=== PATIENT | female | born 1955 | race Caucasian/White ===

== ENCOUNTER 2017-02-12 04:20 | Inpatient (IN) | payer OTHER ==
[~2017-02-12] VITALS: Ht 167.6 cm; Wt 60.1 kg
[~2017-02-12 04:20] MED LIST: CLX20 PO; DPKEC250 PO; DPKEC500 PO; MULT-506 PO; TOPI25TA99 PO; [UNRECOGNIZED DRUG - OTHER] PO
[2017-02-12] MEDS ORDERED: CLX40 PO (04:47)
[2017-02-12] MEDS ORDERED: CARB25TA16 PO (04:47)
[2017-02-12] MEDS ORDERED: CARB25TA12 PO (04:47)
[2017-02-12] MEDS ORDERED: ENTA200T PO (04:53)
[2017-02-12 05:01] LABS: HEMATOCRIT 42.8 % (37-47); MEAN CELL VOLUME 95.3 fL (80-100); MEAN CORPUSCULAR HEMOGLOBIN 30.5 pg (25-34); PLATELET COUNT 279 K/uL (130-400); RED BLOOD COUNT 4.49 M/uL (4.2-5.4); WHITE BLOOD COUNT 12.96 K/uL (4.8-10.8)
[2017-02-12 05:18] LABS: BLOOD UREA NITROGEN 17 mg/dl (7-18); BUN/CREATININE RATIO 18.9 (10-20); CALCIUM 9.4 mg/dl (8.5-10.1); CARBON DIOXIDE 29 mmol/L (21-32); CHLORIDE 108 mmol/L (98-107); CREATININE 0.92 mg/dl (0.60-1.20); GLUCOSE 128 mg/dl (70-99); POTASSIUM 4.1 mmol/L (3.5-5.1); SODIUM 142 mmol/L (136-145)
[2017-02-12 05:30] LABS: CKMB/CK RATIO 0.7 (0-3.0); THYROID STIMULATING HORMONE 0.955 uIu/ml (0.300-4.500)
[2017-02-12 05:31] LABS: BASO % 0.2 %; BASO ABS # 0.02 K/uL (0-0.2); COMPLETE YES; EOS % 0.5 %; IG% 0.2 %; LYMPH % 17.3 %; LYMPH ABS # 2.24 K/uL (1.2-3.4); MONO % 6.8 %
[2017-02-12 05:32] LABS: MAGNESIUM 2.4 mg/dl (1.8-2.4)
[2017-02-12] MEDS ORDERED: LIDO/EPINEPHRINE/SOD BICARB 20 ML VIAL INFIL ONE (06:01)
--- NOTE | 2017-02-12 06:06 | EMERGENCY ROOM VISIT NOTE ---
History Report prepared by Rich: Dana Shankar Under the Supervision of: Dr. Bibiana Menezes D.O. First contact with patient: 04:24 Chief Complaint: FALL Stated Complaint: FALL History of Present Illness The patient is a 61 year old female who presents to the Emergency Room with complaints of an episode of a fall occurring just prior to arrival. The patient' s states that he just picked her up three days ago from [facility] after she spent a wek there. He states that she falls often because she doesn't like to use her walker or cane. He states that she tends to lose her balance when she falls. He states that tonight she got up to go to the bathroom when she fell. He reports that he heard her fall and she was unresponsive for five minutes. The patient states she doesn't remember falling. The patient complains of a headache and pain in her head. The patient denies any abdominal pain, neck pain, back pain, or any other pain. The notices that she has been eating and drinking normally. Source of History: patient Onset: prior to arrival Position: other Quality: other (global) Timing: other (episode) Associated Symptoms: + LOC, + headache, No neck pain, No abdominal pain, No back pain Note: The patient complains of pain in her head. Review of Systems See HPI for pertinent positives & negatives. A total of 10 systems reviewed and were otherwise negative. Past Medical & Surgical Medical Problems: (1) Appendectomy (2) Bipolar disorder (3) Cholecystectomy (4) Concussion (5) Migraine (6) Uterine Ablation Family History No pertinent family history Social History Smoking Status: Never Smoker Drug Use: none Marital Status: Housing Status: lives with family Current/Historical Medications Scheduled Carbidopa/Levodopa (Sinemet 25MG/100MG), 1 TAB PO 5XD Carbidopa/Levodopa (Sinemet Cr 25MG/100MG), 1 TAB PO HS Citalopram (Citalopram Hydrobromide), 40 MG PO DAILY Entacapone (Comtan), 200 MG PO 5XD Allergies Coded Allergies: Sulfa Antibiotics (Verified Allergy, Severe, HIVES, 02/12/17) Penicillins (Verified Allergy, Unknown, RASH, 02/12/17) Physical Exam Vital Signs Date Time Temp Pulse Resp B/P (MAP) Pulse Ox O2 Delivery O2 Flow Rate FiO2 02/12/17 06:20 104 21 94 02/12/17 06:01 135/85 02/12/17 05:50 98 25 96 02/12/17 05:31 142/78 02/12/17 05:20 99 29 97 02/12/17 05:12 98 18 144/85 96 Room Air 02/12/17 05:05 144/85 02/12/17 04:34 100 02/12/17 04:31 140/82 02/12/17 04:20 36.5 102 31 140/82 95 Room Air Physical Exam HEENT: Head - normocephalic. Old bruising to right side of face. 4.5 cm laceration to right temporal region with some bleeding. Pupils are equal, round , and reactive to light. Extraocular eye muscles are intact and sclera are anicteric. Ears - bilaterally patent canals with no evidence of hemotympanum. Nose - moist nasal mucosa without evidence of trauma or discharge. Mouth - moist buccal mucosa with no trauma to the teeth or signs of malocclusion. Extremely dry. Neck: The neck is stiff but there is no pain to palpation over the posterior cervical spine and no obvious step-offs or deformities. There is no JVD or tracheal deviation. Chest: There are no signs of deformities, contusions or abrasions to the chest wall. There is no obvious crepitus or paradoxical chest rise. Heart: Regular, rate, and rhythm. There is a normal S1 and S2 with no murmurs, clicks, or gallops appreciated. Lungs: Clear to auscultation bilaterally with no wheezes, rales, or rhonchi. Abdomen: Soft, completely nontender, nondistended, with good bowel sounds. There is no sign of trauma such as contusions, abrasions or penetrations. There are no palpable pulsatile masses or hepatosplenomegaly. There is no guarding, rigidity, or rebound noted. Pelvis: Stable to rock and compression. Extremities: No obvious deformities or edema. There are easily palpable peripheral pulses. Left hand and wrist have significant amount of old contusions. Multiple contusions at different stages of healing over arms and legs. Neuro: The patient is awake and alert and easily able to follow commands. Muscle strength is 5 out of 5 in all 4 extremities. Otherwise, neuro exam is unremarkable. Back: The entire thoracic, lumbar, and sacral spine were palpated. There are no obvious step-offs or deformities noted. Abrasion over left shoulder. Medical Decision & Procedures ER Provider Diagnostic Interpretation: CT C SPINE: No acute fracture. Reversal of normal cervical lordosis centered at C4-5 and moderate right convex curvature. 2-3 millimeters degenerative anterolisthesis C3-4 and C4-5. Multilevel degenerative disc disease, facet and uncovertebral arthropathy. No significant boy spinal cnal stenosis. Varying degrees of mild to moderate bilateral foraminal stenosis, worst on the right at C6-7. Radiologist: Aquilino Sellers MD Study ready at 05:09 and initial results transmitted at 05:58. CT HEAD: Comparison: CT of 06/29/08. Impression: No ICH, mass effect or edema. No skull fracture. Right temporal scalp laceration with soft tissue swelling and gas. No radiopaque foreign body. Mild parenchymal atrophy and chronic microangiopathic change in the periventricular white matter. Radiologist: Aquilino Sellers MD Study ready at 05:10 and initial results transmitted at 05:54. Laboratory Results 02/12/17 04:12 Red Blood Count 4.49, Mean Corpuscular Volume 95.3, Mean Corpuscular Hemoglobin 30.5, Mean Corpuscular Hemoglobin Concent 32.0, Mean Platelet Volume 10.0, Neutrophils (%) (Auto) 75.0, Lymphocytes (%) (Auto) 17.3, Monocytes (%) (Auto) 6.8, Eosinophils (%) (Auto) 0.5, Basophils (%) (Auto) 0.2, Neutrophils # (Auto) 9.73, Lymphocytes # (Auto) 2.24, Monocytes # (Auto) 0.88, Eosinophils # (Auto) 0.07, Basophils # (Auto) 0.02 02/12/17 04:12 Test 02/12/17 04:12 02/12/17 05:45 White Blood Count 12.96 K/uL (4.8-10.8) Red Blood Count 4.49 M/uL (4.2-5.4) Hemoglobin 13.7 g/dL (12.0-16.0) Hematocrit 42.8 % (37-47) Mean Corpuscular Volume 95.3 fL (80-100) Mean Corpuscular Hemoglobin 30.5 pg (25-34) Mean Corpuscular Hemoglobin Concent 32.0 g/dl (32-36) Platelet Count 279 K/uL (130-400) Mean Platelet Volume 10.0 fL (7.4-10.4) Neutrophils (%) (Auto) 75.0 % Lymphocytes (%) (Auto) 17.3 % Monocytes (%) (Auto) 6.8 % Eosinophils (%) (Auto) 0.5 % Basophils (%) (Auto) 0.2 % Neutrophils # (Auto) 9.73 K/uL (1.4-6.5) Lymphocytes # (Auto) 2.24 K/uL (1.2-3.4) Monocytes # (Auto) 0.88 K/uL (0.11-0.59) Eosinophils # (Auto) 0.07 K/uL (0-0.5) Basophils # (Auto) 0.02 K/uL (0-0.2) RDW Standard Deviation 48.4 fL (36.4-46.3) RDW Coefficient of Variation 14.0 % (11.5-14.5) Immature Granulocyte % (Auto) 0.2 % Immature Granulocyte # (Auto) 0.02 K/uL (0.00-0.02) Red Blood Cell Morphology Unremarkable Anion Gap 5.0 mmol/L (3-11) Est Creatinine Clear Calc Drug Dose 58.6 ml/min Estimated GFR () 76.8 Estimated GFR (Non- 66.3 BUN/Creatinine Ratio 18.9 (10-20) Calcium Level 9.4 mg/dl (8.5-10.1) Magnesium Level 2.4 mg/dl (1.8-2.4) Total Creatine Kinase 119 U/L (26-192) Creatine Kinase MB 0.8 ng/ml (0.5-3.6) Creatine Kinase MB Ratio 0.7 (0-3.0) Troponin I < 0.015 ng/ml (0-0.045) Thyroid Stimulating Hormone (TSH) 0.955 uIu/ml (0.300-4.500) Urine Color DK YELLOW Urine Appearance TURBID (CLEAR) Urine pH 7.5 (4.5-7.5) Urine Specific Nickerson 1.023 (1.000-1.030) Urine Protein TRACE (NEG) Urine Glucose (UA) NEG (NEG) Urine Ketones TRACE (NEG) Urine Occult Blood NEG (NEG) Urine Nitrite POS (NEG) Urine Bilirubin NEG (NEG) Urine Urobilinogen NEG (NEG) Urine Leukocyte Esterase MODERATE (NEG) Urine WBC (Auto) 10-30 /hpf (0-5) Urine RBC (Auto) 0-4 /hpf (0-4) Urine Hyaline Casts (Auto) 5-10 /lpf (0-5) Urine Epithelial Cells (Auto) 0-5 /lpf (0-5) Urine Bacteria (Auto) 4+ (NEG) Laboratory results per my review. Procedure See procedure note for Mine Valentin PA-C. ECG Indication: other (fall) Rate (beats per minute): 96 Rhythm: normal sinus Findings: no acute ischemic change, no ectopy ED Course 0425: Past medical records reviewed. The patient was evaluated in room B4B. A complete history and physical exam was performed. The patient's , who is a physician, was at the bedside. He was able to provide much of a history. Laboratory studies were drawn as above. She had a twelve-lead EKG and went for CT scan of the brain and cervical spine as described above. 0501: I discussed the patient's test results with her and the treatment plan. The wound on the right side of her head was cleansed and required suture repair. This was repaired by Mine Valentin PA-C. Please see her procedure note. I've been some time talking to the about the increased falls for the patient and the dangers associated with that. He agreed that she would most likely require more intensive in-home care or placement in an assisted facility. 0518: Discussed the patient's case with Dr. Aldridge. The patient will be evaluated for further management. Medical Decision This is a 61-year-old female patient with a history of frontotemporal dementia who presents to the emergency department tonight after she fell in the bathroom and was found unresponsive for approximate 5 minutes. Differential diagnoses include skull fracture, intracranial trauma, c-spine fracture, UTI, dehydration. LABS: White blood cell count 12.9 Stable H&H Normal renal function TSH 0.9 Glucose 128 Normal magnesium Negative cardiac enzymes URINALYSIS: Dark yellow Trace proteins Trace ketones Positive nitrite Moderate leukocyte esterase 4+ bacteria 10-30 white blood cells The patient has been suffering increased falls as is evidenced by the multiple contusions about her body. Urinalysis reveals a urinary tract infection. This may be exacerbated things. I discussed the case the [facility] Hospitalist and they will evaluate for further management. CT scan of the brain and cervical spine was negative. The wound on her scalp was repaired. She denied being in pain. Consults Time Called: 05 Consulting Physician: Dr. Aldridge Returned Call: 0518 Discussed the patient's case with Dr. Aldridge. The patient will be evaluated for further management. Impression Primary Impression: Scalp laceration Additional Impressions: Fall UTI (urinary tract infection) Scribe Attestation The scribe's documentation has been prepared under my direction and personally reviewed by me in its entirety. I confirm that the note above accurately reflects all work, treatment, procedures, and medical decision making performed by me. Departure Information Dispostion Being Evaluated By Hospitalist Referrals Amanda Cisneros M.D. (PCP) Patient Instructions My [facility] Problem Qualifiers Primary Impression: Scalp laceration Encounter type: initial encounter Qualified Codes: S01.01XA - Laceration without foreign body of scalp, initial encounter Additional Impressions: Fall Encounter type: initial encounter Qualified Codes: W19.XXXA - Unspecified fall, initial encounter UTI (urinary tract infection) Urinary tract infection type: acute cystitis Hematuria presence: with hematuria Qualified Codes: N30.01 - Acute cystitis with hematuria
[2017-02-12 06:16] LABS: URINE APPEARANCE TURBID (CLEAR); URINE BILIRUBIN NEG (NEG); URINE COLOR DK YELLOW; URINE EPITHELIAL CELL AUTO 0-5 /lpf (0-5); URINE NITRITE POS (NEG); URINE PH 7.5 (4.5-7.5); URINE SPECIFIC GRAVITY 1.023 (1.000-1.030); UROBILINOGEN NEG (NEG)
--- NOTE | 2017-02-12 06:21 | EMERGENCY ROOM VISIT NOTE ---
ED Visit Note I was asked by Dr. Menezes to perform laceration repair of this patient's scalp laceration. Please see her dictation for further physical exam and full ED course. Physical exam reveals a 4.5 cm laceration to the right hairline. Verbal consent was obtained to perform the procedure. Using sterile technique the wound was cleaned with Betadine. The area was sterilely draped. 4 ml of 1 % buffered lidocaine with epinephrine was used to anesthetize the scalp laceration. Once the patient was anesthetized, the wound was copiously irrigated under pressure with sterile saline. The wound was explored and there were no deep structures injured such as tendons, bone, or significant blood vessels. The laceration was repaired using 5 simple interrupted 4-0 nylon sutures with the wound edges being well approximated. The patient tolerated the procedure well. Hemostasis was achieved.
[2017-02-12 06:27] LABS: MANUAL MICROSCOPIC REQUIRED? NO; REVIEW REQ? NO
[2017-02-12 06:28] LABS: SULFASALICYLIC ACID POS (NEG)
[2017-02-12] MEDS ORDERED: ACETAMINOPHEN 325 MG TAB PO PRN (06:30)
[2017-02-12] MEDS ORDERED: MoRPHine SULFATE 4 MG/ML 1 ML CARP\\VIAL IV PRN (06:30)
[2017-02-12] MEDS ORDERED: ONDANSETRON INJ 2 MG/ML 2 ML VIAL IV PRN (06:30)
[2017-02-12] MEDS ORDERED: OXYCODONE/ACETAMINOPHEN 5-325 TAB PO PRN (06:30)
[2017-02-12] MEDS ORDERED: SODIUM CHLORIDE 0.45% 1000ML 1,000 ML IV ONE (06:30)
[2017-02-12] MEDS ORDERED: IBUPROFEN 200 MG TAB PO PRN (06:30)
[2017-02-12] MEDS ORDERED: KETOROLAC TROMETHAMINE 30 MG/ML VIAL IV PRN (06:30)
--- NOTE | 2017-02-12 06:41 | DIAGNOSTIC IMAGING REPORT ---
CT HEAD WITHOUT CONTRAST (CT) CLINICAL HISTORY: Head trauma. Head pain. COMPARISON STUDY: 06/29/2008 TECHNIQUE: Axial CT of the brain is performed from the vertex to the skull base. IV contrast was not administered for this examination. A dose lowering technique was utilized adhering to the principles of ALARA. CT DOSE: 1034.83 mGy.cm FINDINGS: No intra or extra-axial mass lesions are visualized. There is no CT evidence of acute cortical infarction. There is no evidence of midline shift. There is no acute hemorrhage. No calvarial fractures are visualized. There are minor white matter hypodensities likely on a small vessel basis. There is mild ventricular dilatation which is progressive when compared the preceding study. There is no evidence of acute sinusitis. There is a right frontal scalp laceration with associated edema. IMPRESSION: 1. No acute intracranial findings 2. Right frontal scalp laceration with associated soft tissue swelling 3. Mild ventricular dilatation Electronically signed by: Paul Rodriguez M.D. 02/12/2017 6:40 AM Dictated Date/Time: 02/12/2017 6:37 AM
[2017-02-12] MEDS ORDERED: IV FLUIDS COMPLETED PRN (06:45)
[2017-02-12 07:03] VITALS: O2SAT 97; Ht 167.6 cm; Wt 60.1 kg
--- NOTE | 2017-02-12 07:20 | DIAGNOSTIC IMAGING REPORT ---
CT SCAN OF THE CERVICAL SPINE CLINICAL HISTORY: Fall. COMPARISON STUDY: No priors. TECHNIQUE: CT scan of the cervical spine is performed from the skull base to the upper thoracic spine. Images are reviewed in the axial, sagittal, and coronal planes. IV contrast was not administered for this examination. A dose lowering technique was utilized adhering to the principles of ALARA. FINDINGS: Skeletal structures: The skeletal structures are osteopenic. There is no evidence of fracture or subluxation involving the cervical spine. Vertebral body height is maintained. There is 5 mm of anterolisthesis at C3-C4. Minimal anterolisthesis is also seen at C4-C5. There is minimal retrolisthesis at C6-C7. There is straightening of cervical lordosis with reversal centered at C4-C5. The odontoid process and lateral masses are intact. The atlantoaxial articulation is preserved noting productive degenerative change. The spinous processes appear intact. Anterior osteophytes are seen from C4 through C7. Endplate sclerosis is noted at C6-C7. There is moderate multilevel cervical spondylosis. Uncovertebral and facet arthropathy contribute to neural foraminal narrowing at several levels. Intervertebral discs: There is moderate disc space narrowing seen at C5-C6 and C6-C7. Mild disc space narrowing seen at C3-C4 and C4-C5. Central canal: Posterior disc osteophyte complexes at C5-C6 and C6-C7 likely contribute to mild acquired compromise of the central canal. Soft tissues: The prevertebral and paraspinous soft tissues are within normal limits. Calvarium: The visualized calvarium at the skull base appears intact. Brain parenchyma: Partially visualized brain parenchyma the skull base is within normal limits noting involutional change. Sinuses and mastoids: The visualized paranasal sinuses are clear. The mastoid air cells are well pneumatized. Lung apices: Apical scarring is noted. Partially imaged upper lobe lung parenchyma is otherwise clear as visualized. IMPRESSION: 1. There is no evidence of fracture or subluxation involving the cervical spine. 2. Osteopenia and spondylotic change as above. Electronically signed by: Luis Eduardo Murphy M.D. 02/12/2017 7:19 AM Dictated Date/Time: 02/12/2017 7:15 AM
[2017-02-12 07:30] VITALS: BP 143/80; PULSE 94; TEMP 36.5; O2SAT 96
--- NOTE | 2017-02-12 08:16 | HISTORY & PHYSICAL EXAMINATION ---
DATE OF ADMISSION: 02/12/2017 PRIMARY CARE DOCTOR: Dr. Cisneros CHIEF COMPLAINT: Fall, head trauma. HISTORY OF PRESENT ILLNESS: History was obtained from the patient, records and patient's . Medical history is significant for arthritis, mood disorder, left renal angioma sp, frontotemporal dementia with Parkinsonian features. As per , of late the patient is falling more than usual/ [facility] rehabilitation stay last November 2016. Hours ago, the patient had a fall in the kitchen, hit her head against the tile floor. Px was unresponsive for a few minute. Patient sustained a laceration on the right congregation. Patient denies chest pain or shortness of breath. Scalp laceration sutured in the Emergency Room. Patient also noted to be incontinent of large amount of urine upon arrival at the Emergency Room. No fever, no chills. MEDICAL HISTORY: As above. OPERATIONS: She has had cholecystectomy, gynecologic procedures, urologic procedures, appendectomy. HOME MEDICATIONS: Include; Sinemet, citalopram and Comtan. ALLERGIES: TO PENICILLIN AND SULFA. FAMILY HISTORY: Dementia. PERSONAL AND SOCIAL HISTORY: Nonsmoker. No chronic intake of alcoholic beverages. Homemaker. REVIEW OF SYSTEMS: As per HPI. All other ROS negative. PHYSICAL EXAMINATION: VITAL SIGNS: Blood pressure was noted to be 144/85, pulse rate 98, RR 18, temperature 36.5 and sats 95 on room air. GENERAL: Noted to be comfortable, no respiratory distress, flat affect. SKIN: Normal color, note of multiple bruising on all four extremities HEENT: Sutured laceration right congregation. [employer] palpebral conjunctivae. Dry mucosa. NECK: No JVD. Supple. CHEST: Clear to auscultation. HEART: Regular rate and rhythm. ABDOMEN: Soft. EXTREMITIES: No edema, no tenderness. NEUROLOGIC: No gross focality except for some rest tremors. Gait and stance not assessed LABORATORIES: Hemoglobin was noted to be 13.7, hematocrit 42.0 white cell count 12.9 and platelets 279. Sodium 140, potassium 4.1, chloride 108, CO2 of 29, BUN 70, creatinine 0.9 and glucose of 128. CT head initial read; no acute hemorrhage, right frontal scalp laceration and associated soft tissue swelling. CT spine neck initial read; showed reversal of normal cervical lordosis 2.2-3 mm, degenerative disease at C3-C4, C4-C5, [id number] foraminal stenosis worse on the right at C6-C7. UA : WBC est, nitrite positive ASSESSMENT: 1. Cerebral concussion 2. Recurrent falls Worsening ambulatory dysfunction hx frontotemporal dementia with parkinsonian features 3. urinary tract infection, no sepsis. PLAN: Observation [facility], neuro checks Neurology consult RE : Cerebral concussion. Follow urine cultures. IV ceftriaxone. PT/OT evaluation. Social service. RE DISCHARGE PLANNING DVT prophylaxis, SCDs. Recent head wound. Full code. Patient requesting updates from providers. Dr. Omi Burrell at [phone]. [facility]
[2017-02-12] MEDS: CEFTRIAXONE SOD INJ 1 GM in DEXTROSE 5% ADD-VANTAGE 50ML 50 ML IV SCH (08:33)
[2017-02-12] MEDS: CITALOPRAM 40 MG TAB PO SCH (08:34)
[2017-02-12] MEDS: ENTACAPONE 200 MG TAB PO SCH ×4 (09:46→22:05)
[2017-02-12] MEDS: CARBIDOPA/LEVODOPA 25/100MG TAB PO SCH ×4 (09:46→22:05)
--- NOTE | 2017-02-12 13:57 | Neurology Consultation ---
Neurology Consultation Date of Consultation: Feb 12, 2017. Attending Physician: Taco Angelo MD Primary Care Physician: Amanda Cisneros M.D. Reason for Consultation: concussion History of Present Illness Source: patient Tamara is a 61 year old female who PMH arthritis, mood disorder left renal angioma, dementia with Parkinsonian features. Per report of of late the patient is falling more than usual. She states this is true and has been fall when walking her dogs. She states she does not use a walker for ambulation. Yesterday she fell in the kitchen and hit her head on the tile floor and was unresponsive for several minutes. she state she had no flushing, lightheaded feeling or SOB prior to the fall. She has a laceration above her right temporal area which has been sutured. She states she did not bite her tongue or loose continence but the ER reports she had a large amount of urine at arrival. denies CP, SOB, abdominal pain, weakness, numbness tingling, headache, vision changes, N, V. She is not sure who she sees for her parkinson's disease. During the exam she has difficulty clearing her saliva. Past Medical/Surgical History Medical Problems: (1) Fall Status: Acute (2) Scalp laceration Status: Acute Social History Smoking Status: Never smoker Alcohol Use: none Drug Use: none Marital Status: Housing Status: lives with family Allergies Coded Allergies: Sulfa Antibiotics (Verified Allergy, Severe, HIVES, 02/12/17) Penicillins (Verified Allergy, Unknown, RASH, 02/12/17) Current Inpatient Medications Current Inpatient Medications Medications (Trade) Dose Ordered Sig/Paz Route Start Time Stop Time Status Last Admin Dose Admin Ceftriaxone Sodium 1 gm/ Dextrose 50 ml @ 100 mls/hr Q24H IV 02/12/17 08:00 02/17/17 07:59 02/12/17 08:33 100 MLS/HR Miscellaneous (Iv Fluids Completed) 1 ea PRN PRN N/A 02/12/17 06:45 02/12/18 06:44 Acetaminophen (Tylenol Tab) 650 mg Q4H PRN PO 02/12/17 06:30 03/14/17 06:29 Carbidopa/Levodopa (Sinemet 25/ 100MG Tab) 1 tab 0600,1000,1400,1800,2200 PO 02/12/17 10:00 03/14/17 09:59 02/12/17 09:46 1 TAB Carbidopa/Levodopa (Sinemet Cr 25/ 100MG Tab) 1 tab HS PO 02/12/17 21:00 03/14/17 20:59 Citalopram Hydrobromide (celeXA TAB) 40 mg DAILY PO 02/12/17 08:00 03/14/17 08:59 02/12/17 08:34 40 MG Entacapone (Comtan) 200 mg 0600,1000,1400,1800,2200 PO 02/12/17 10:00 03/14/17 09:59 02/12/17 09:46 200 MG Ibuprofen (Advil Tab) 400 mg Q6H PRN PO 02/12/17 06:30 03/14/17 06:29 Ketorolac Tromethamine (Toradol Inj) 30 mg Q6H PRN IV 02/12/17 06:30 02/17/17 06:29 Oxycodone/ Acetaminophen (Percocet 5-325mg Tab) 1 tab Q6H PRN PO 02/12/17 06:30 02/26/17 06:29 Ondansetron HCl (Zofran Inj) 4 mg Q6H PRN IV 02/12/17 06:30 03/14/17 06:29 Morphine Sulfate (MoRPHine SULFATE INJ) 4 mg Q3H PRN IV 02/12/17 06:30 02/26/17 06:29 Sodium Chloride 1,000 ml @ 75 mls/hr [id number] ONCE IV 02/12/17 06:30 02/12/17 19:49 02/12/17 08:33 75 MLS/HR Physical Exam Vital Signs (Past 24 Hrs): Date Time Temp Pulse Resp B/P (MAP) Pulse Ox O2 Delivery O2 Flow Rate FiO2 02/12/17 07:30 36.5 94 24 143/80 (101) 96 Room Air 02/12/17 07:03 97 Room Air 02/12/17 07:00 105 26 139/78 97 02/12/17 06:20 104 21 94 02/12/17 06:01 135/85 02/12/17 05:50 98 25 96 02/12/17 05:31 142/78 02/12/17 05:20 99 29 97 02/12/17 05:12 98 18 144/85 96 Room Air 02/12/17 05:05 144/85 02/12/17 04:34 100 02/12/17 04:31 140/82 02/12/17 04:20 36.5 102 31 140/82 95 Room Air Physical Exam: Constitutional: appearance thin ill appearing Ears, Nose, Mouth and Throat: mucous membranes moist, no injection and skin normal, eyes normal Cardiovascular: normal S-1 and S-2 and regular rate and rhythm Respiratory: harsh BS Musculoskeletal: no peripheral edema and good distal pulses Skin: no stigmata of neurocutaneous disease noted and normal and intact Eyes: extraocular muscles intact (EOMI) and pupils equal, round and reactive to light (PERRL), decreased blink frequency NEUROLOGIC EXAMINATION: Mental status: Alert and interactive Oriented 2017 and [facility] in [place] Oriented to person Speech fluent with no evidence of aphasia Cranial Nerves smile eye brow raise symmetric, tongue midline Reflexes: Deep tendon reflexes were symmetrical and graded 2/5 brisk. Plantar responses were flexor. Sensory: intact to vibration and GT proprioception Coordination: finger to nose without bi pass, +cogwheeling, + resting tremor Gait/Stance: Posture lying in bed, head of bed raised due to difficulty with clearing saliva Motor: Negative for pronator drift of out stretched arms with eyes closed. 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 hip flex plantar flex ext 4+/5, generalized weakness Laboratory Results Past 24 Hours: 02/12/17 04:12 Red Blood Count 4.49, Mean Corpuscular Volume 95.3, Mean Corpuscular Hemoglobin 30.5, Mean Corpuscular Hemoglobin Concent 32.0, Mean Platelet Volume 10.0, Neutrophils (%) (Auto) 75.0, Lymphocytes (%) (Auto) 17.3, Monocytes (%) (Auto) 6.8, Eosinophils (%) (Auto) 0.5, Basophils (%) (Auto) 0.2, Neutrophils # (Auto) 9.73, Lymphocytes # (Auto) 2.24, Monocytes # (Auto) 0.88, Eosinophils # (Auto) 0.07, Basophils # (Auto) 0.02 02/12/17 04:12 Test 02/12/17 04:12 02/12/17 05:45 White Blood Count 12.96 K/uL (4.8-10.8) Red Blood Count 4.49 M/uL (4.2-5.4) Hemoglobin 13.7 g/dL (12.0-16.0) Hematocrit 42.8 % (37-47) Mean Corpuscular Volume 95.3 fL (80-100) Mean Corpuscular Hemoglobin 30.5 pg (25-34) Mean Corpuscular Hemoglobin Concent 32.0 g/dl (32-36) Platelet Count 279 K/uL (130-400) Mean Platelet Volume 10.0 fL (7.4-10.4) Neutrophils (%) (Auto) 75.0 % Lymphocytes (%) (Auto) 17.3 % Monocytes (%) (Auto) 6.8 % Eosinophils (%) (Auto) 0.5 % Basophils (%) (Auto) 0.2 % Neutrophils # (Auto) 9.73 K/uL (1.4-6.5) Lymphocytes # (Auto) 2.24 K/uL (1.2-3.4) Monocytes # (Auto) 0.88 K/uL (0.11-0.59) Eosinophils # (Auto) 0.07 K/uL (0-0.5) Basophils # (Auto) 0.02 K/uL (0-0.2) RDW Standard Deviation 48.4 fL (36.4-46.3) RDW Coefficient of Variation 14.0 % (11.5-14.5) Immature Granulocyte % (Auto) 0.2 % Immature Granulocyte # (Auto) 0.02 K/uL (0.00-0.02) Red Blood Cell Morphology Unremarkable Anion Gap 5.0 mmol/L (3-11) Est Creatinine Clear Calc Drug Dose 58.6 ml/min Estimated GFR () 76.8 Estimated GFR (Non- 66.3 BUN/Creatinine Ratio 18.9 (10-20) Calcium Level 9.4 mg/dl (8.5-10.1) Magnesium Level 2.4 mg/dl (1.8-2.4) Total Creatine Kinase 119 U/L (26-192) Creatine Kinase MB 0.8 ng/ml (0.5-3.6) Creatine Kinase MB Ratio 0.7 (0-3.0) Troponin I < 0.015 ng/ml (0-0.045) Thyroid Stimulating Hormone (TSH) 0.955 uIu/ml (0.300-4.500) Urine Color DK YELLOW Urine Appearance TURBID (CLEAR) Urine pH 7.5 (4.5-7.5) Urine Specific [place] 1.023 (1.000-1.030) Urine Protein TRACE (NEG) Urine Glucose (UA) NEG (NEG) Urine Ketones TRACE (NEG) Urine Occult Blood NEG (NEG) Urine Nitrite POS (NEG) Urine Bilirubin NEG (NEG) Urine Urobilinogen NEG (NEG) Urine Leukocyte Esterase MODERATE (NEG) Urine WBC (Auto) 10-30 /hpf (0-5) Urine RBC (Auto) 0-4 /hpf (0-4) Urine Hyaline Casts (Auto) 5-10 /lpf (0-5) Urine Epithelial Cells (Auto) 0-5 /lpf (0-5) Urine Bacteria (Auto) 4+ (NEG) Imaging CT head- . No acute intracranial findings Right frontal scalp laceration with associated soft tissue swelling Mild ventricular dilatation CT c spine- There is no evidence of fracture or subluxation involving the cervical spine. Osteopenia and spondylotic change as above. Impression 61 year old female s/p fall with LOC /concussion/ hx dementia with parkinson's features Plan 1. continue current parkinson's medication- Sinemet 25/100 mg 0600/1000/1600/ 1800/2000 along with Comtan 200 mg with dosing. CR 25/100 hs 2. PT/OT/speech for discharge needs- some difficulty with clearing saliva 3. walker should be used at all times- to avoid further falls 4. home safety and nursing check at discharge 5. LOC -EEG ordered 6. fall precautions 7. UTI - currently on ceftriaxone treat to culture 8. orthostatic blood pressures evaluate due to falls I have seen and discussed above patient with Dr Dalila Spivey, neurology Pt seen and examined with Dalila Hitchcock. Spoke with Dr Burrell. Pt fell while in bathroom during the night. Pt called out as she was falling. LOC thereafter lasting 10 min, vitals ok mild confusion thereafter which is improving. Fell 1 week ago while at [facility] for respite care. Does not use assistive device. Family trying to balance autonomy/ quality of life with safety. Pt denies orhthostatic lightheadedness, headache.. Pt awake, alert, history somewhat inconsistent. R periorb swelling, sutures. Blerospasm, no facial asym. Mild facial masking, mild resting tremor. Equal strength, brisk reflexes, toes down, gait NT. Imp. Mrs Burrell has fronto-temp dementia with parkinsonism. Recent falls may be due to progression of disease. R/o orthostasis. REc swallowing study with speech given some difficulty witness by Dalila Hitchcock in managing secretions and Dr. Burrell's report of some dysphagia. Pt PT for reinforcement of safety, assistive devices. AJIT Spivey MD
--- NOTE | 2017-02-12 14:02 | Progress Note ---
Internal Med Progress Note Date of Service: Feb 12, 2017. Provider Documentation: SUBJECTIVE: Seen and examined at bedside. States having some soreness on sit of scalp wound Denies chest pain, SOB, weakness, nausea, abd pain OBJECTIVE: Vital Signs-as noted below Physical Exam: General Appearance:Moderately built and nourished, no apparent distress Head: normocephalic, Atraumatic Eyes: normal inspection, EOMI, PERRL Neck: supple, Trachea midline Respiratory/Chest: Normal sounds, CTA Cardiovascular: S1, S2, No murmur Abdomen/GI:Soft, Non tender, Bowel sounds present Extremities/Musculoskelatal:normal inspection, no edema Neurologic/Psych:grossly no focal neurological deficits, + resting tremor Skin: normal color, warm, scalp wound Lab data as noted below. ASSESSMENT & PLAN: S/P fall, Concussion H/O FTD with Parkinson's features and recurrent falls lately CT head: no acute intracranial findings PT/OT Fall precautions May need rehab EEG pending Neuro checks check Orthostatics H/O frontotemporal dementia with parkinsonian features Continue home meds EEG Pending Neurology consulted Had some difficulty clearing saliva per Neurology Will get speech and swallow eval Aspiration precautions Possible UTI Denies Urinary symptoms No signs of sepsis Continue ceftriaxone for now Follow up Urine culture Mood disorder: Continue home meds stable DVT Px: SCDs. Code Status Full code. Disposition: PT/OT phlebotomy services technician consulted Discussed with patient's Dr. Omi Burrell today Vital Signs: Date Time Temp Pulse Resp B/P (MAP) Pulse Ox O2 Delivery O2 Flow Rate FiO2 02/12/17 15:26 36.8 104 20 139/79 (99) 96 Room Air 02/12/17 07:30 36.5 94 24 143/80 (101) 96 Room Air 02/12/17 07:03 97 Room Air 02/12/17 07:00 105 26 139/78 97 02/12/17 06:20 104 21 94 02/12/17 06:01 135/85 02/12/17 05:50 98 25 96 02/12/17 05:31 142/78 02/12/17 05:20 99 29 97 02/12/17 05:12 98 18 144/85 96 Room Air 02/12/17 05:05 144/85 02/12/17 04:34 100 02/12/17 04:31 140/82 8/2/17 04:20 36.5 102 31 140/82 95 Room Air Lab Results: Results Past 24 Hours Test 02/12/17 04:12 02/12/17 05:45 Range/Units White Blood Count 12.96 4.8-10.8 K/uL Red Blood Count 4.49 4.2-5.4 M/uL Hemoglobin 13.7 12.0-16.0 g/dL Hematocrit 42.8 37-47 % Mean Corpuscular Volume 95.3 80-100 fL Mean Corpuscular Hemoglobin 30.5 25-34 pg Mean Corpuscular Hemoglobin Concent 32.0 32-36 g/dl Platelet Count 279 130-400 K/uL Mean Platelet Volume 10.0 7.4-10.4 fL Neutrophils (%) (Auto) 75.0 % Lymphocytes (%) (Auto) 17.3 % Monocytes (%) (Auto) 6.8 % Eosinophils (%) (Auto) 0.5 % Basophils (%) (Auto) 0.2 % Neutrophils # (Auto) 9.73 1.4-6.5 K/uL Lymphocytes # (Auto) 2.24 1.2-3.4 K/uL Monocytes # (Auto) 0.88 0.11-0.59 K/uL Eosinophils # (Auto) 0.07 0-0.5 K/uL Basophils # (Auto) 0.02 0-0.2 K/uL RDW Standard Deviation 48.4 36.4-46.3 fL RDW Coefficient of Variation 14.0 11.5-14.5 % Immature Granulocyte % (Auto) 0.2 % Immature Granulocyte # (Auto) 0.02 0.00-0.02 K/uL Red Blood Cell Morphology Unremarkable Sodium Level 142 136-145 mmol/L Potassium Level 4.1 3.5-5.1 mmol/L Chloride Level 108 98-107 mmol/L Carbon Dioxide Level 29 21-32 mmol/L Anion Gap 5.0 3-11 mmol/L Blood Urea Nitrogen 17 7-18 mg/dl Creatinine 0.92 0.60-1.20 mg/dl Est Creatinine Clear Calc Drug Dose 58.6 ml/min Estimated GFR () 76.8 Estimated GFR (Non- 66.3 BUN/Creatinine Ratio 18.9 10-20 Random Glucose 128 70-99 mg/dl Calcium Level 9.4 8.5-10.1 mg/dl Magnesium Level 2.4 1.8-2.4 mg/dl Total Creatine Kinase 119 26-192 U/L Creatine Kinase MB 0.8 0.5-3.6 ng/ml Creatine Kinase MB Ratio 0.7 0-3.0 Troponin I < 0.015 0-0.045 ng/ml Thyroid Stimulating Hormone (TSH) 0.955 0.300-4.500 uIu/ml Urine Color DK YELLOW Urine Appearance TURBID CLEAR Urine pH 7.5 4.5-7.5 Urine Specific [place] 1.023 1.000-1.030 Urine Protein TRACE NEG Urine Glucose (UA) NEG NEG Urine Ketones TRACE NEG Urine Occult Blood NEG NEG Urine Nitrite POS NEG Urine Bilirubin NEG NEG Urine Urobilinogen NEG NEG Urine Leukocyte Esterase MODERATE NEG Urine WBC (Auto) 10-30 0-5 /hpf Urine RBC (Auto) 0-4 0-4 /hpf Urine Hyaline Casts (Auto) 5-10 0-5 /lpf Urine Epithelial Cells (Auto) 0-5 0-5 /lpf Urine Bacteria (Auto) 4+ NEG Microbiology Results 02/12/17 Urine Culture, Received Pending
[2017-02-12 15:26] VITALS: BP 139/79; PULSE 104; TEMP 36.8; O2SAT 96
[2017-02-12] MEDS: CARBIDOPA/LEVODOPA 25/100MG EXT REL TAB PO SCH (21:07)
[2017-02-12 23:57] VITALS: BP 123/75; PULSE 97; TEMP 37; O2SAT 96
[2017-02-13] MEDS: CARBIDOPA/LEVODOPA 25/100MG TAB PO SCH ×5 (05:13→20:58)
[2017-02-13] MEDS: ENTACAPONE 200 MG TAB PO SCH ×5 (05:17→20:59)
[2017-02-13 06:45] LABS: BASO % 0.2 %; BASO ABS # 0.01 K/uL (0-0.2); COMPLETE YES; EOS % 1.1 %; HEMATOCRIT 39.6 % (37-47); IG% 0.2 %; LYMPH % 19.9 %; LYMPH ABS # 1.29 K/uL (1.2-3.4); MEAN CELL VOLUME 94.1 fL (80-100); MEAN CORPUSCULAR HEMOGLOBIN 29.9 pg (25-34); MEAN CORPUSCULAR HGB CONC 31.8 g/dl (32-36); MEAN PLATELET VOLUME 9.6 fL (7.4-10.4); NEUT % 69.6 %; PLATELET COUNT 247 K/uL (130-400); RED BLOOD COUNT 4.21 M/uL (4.2-5.4); WHITE BLOOD COUNT 6.47 K/uL (4.8-10.8)
[2017-02-13 07:15] LABS: BUN/CREATININE RATIO 16.3 (10-20); CALCIUM 8.9 mg/dl (8.5-10.1); CREATININE 0.78 mg/dl (0.60-1.20)
[2017-02-13 07:51] VITALS: BP 134/82; PULSE 95; TEMP 37.1; O2SAT 95
[2017-02-13] MEDS: CITALOPRAM 40 MG TAB PO SCH (09:08)
[2017-02-13] MEDS: CEFTRIAXONE SOD INJ 1 GM in DEXTROSE 5% ADD-VANTAGE 50ML 50 ML IV SCH (09:21)
[2017-02-13 11:31] VITALS: BP_SYST 123; BP_SYST 134; BP_SYST 142; BP_DIAS 82; BP_DIAS 85; BP_DIAS 89; PULSE 109; PULSE 113; PULSE 125; TEMP 36.6; O2SAT 97
--- NOTE | 2017-02-13 13:34 | ELECTROENCEPHALOGRAPH REPORT ---
REQUESTING: Dalila Hitchcock. CLINICAL DIAGNOSIS: Frontotemporal dementia with parkinsonian features and frequent falls, question seizures. ELECTROENCEPHALOGRAM DIAGNOSIS: Essentially normal during wakefulness. DESCRIPTION OF TRACING: This EEG was done as a bedside recording and is of good technical quality. A simultaneous video analysis of patient movement and behavior was obtained. Photic stimulation was performed. Hyperventilation was not. Drowsiness and light sleep are not clearly recorded. Under these conditions, there is evidence for a background rhythm in the alpha range of 9 to occasionally 10 Hz of maximum frequency and of up to 40 microvolts of maximum amplitude. This is maximum posterior head regions bilaterally symmetrical. Polymorphic mid frequency theta activity to slightly lower frequency theta activity modest voltage is seen over all head regions without clear focal or regional predominance. Anterior head region maximum bilaterally symmetrical low voltage fast activity in the beta range is present. Photic stimulation provokes modest driving response without a photomyogenic or photoparoxysmal component. At no time during the waking tracing is there evidence for potentially epileptogenic activity in the form of polyspike or spike wave bursts, focal sharp waves or focal spikes. INTERPRETATION: This EEG is essentially normal during wakefulness without evidence for focal or generalized encephalopathy and without evidence for potentially epileptogenic activity.
--- NOTE | 2017-02-13 14:55 | Neurology Progress Notes ---
Neurology Progress Note Date of Service Feb 13, 2017. Jeferson Mcdonald is a 61 year old female who PMH arthritis, mood disorder left renal angioma, dementia with Parkinsonian features. Per report of of late the patient is falling more than usual. She states this is true and has been fall when walking her dogs. She states she does not use a walker for ambulation. Yesterday she fell in the kitchen and hit her head on the tile floor and was unresponsive for several minutes. she state she had no flushing, lightheaded feeling or SOB prior to the fall. She has a laceration above her right temporal area which has been sutured. She states she did not bite her tongue or loose continence but the ER reports she had a large amount of urine at arrival. . She is not sure who she sees for her parkinson's disease. During the exam yesterday she was not clearing her salvia, She is doing better today. She states she just wants get home with her dogs. She was up walking around with PT and the walker.denies CP, SOB, abdominal pain, weakness, numbness tingling, headache, vision changes, N, V Objective Date Time Temp Pulse Resp B/P (MAP) Pulse Ox O2 Delivery O2 Flow Rate FiO2 02/13/17 11:31 36.6 109 18 134/82 (99) 97 113 142/89 (106) 125 123/85 (98) 02/13/17 08:00 Room Air 02/13/17 07:51 37.1 95 16 134/82 (99) 95 Room Air 02/13/17 00:01 Room Air 02/12/17 23:57 37.0 97 20 123/75 (91) 96 Room Air 02/12/17 16:00 Room Air 02/12/17 15:26 36.8 104 20 139/79 (99) 96 Room Air Last 24 Hours Test 02/13/17 06:28 White Blood Count 6.47 K/uL Red Blood Count 4.21 M/uL Hemoglobin 12.6 g/dL Hematocrit 39.6 % Mean Corpuscular Volume 94.1 fL Mean Corpuscular Hemoglobin 29.9 pg Mean Corpuscular Hemoglobin Concent 31.8 g/dl Platelet Count 247 K/uL Mean Platelet Volume 9.6 fL Neutrophils (%) (Auto) 69.6 % Lymphocytes (%) (Auto) 19.9 % Monocytes (%) (Auto) 9.0 % Eosinophils (%) (Auto) 1.1 % Basophils (%) (Auto) 0.2 % Neutrophils # (Auto) 4.51 K/uL Lymphocytes # (Auto) 1.29 K/uL Monocytes # (Auto) 0.58 K/uL Eosinophils # (Auto) 0.07 K/uL Basophils # (Auto) 0.01 K/uL RDW Standard Deviation 47.5 fL RDW Coefficient of Variation 13.7 % Immature Granulocyte % (Auto) 0.2 % Immature Granulocyte # (Auto) 0.01 K/uL Sodium Level 141 mmol/L Potassium Level 4.0 mmol/L Chloride Level 110 mmol/L Carbon Dioxide Level 27 mmol/L Anion Gap 4.0 mmol/L Blood Urea Nitrogen 13 mg/dl Creatinine 0.78 mg/dl Est Creatinine Clear Calc Drug Dose 69.1 ml/min Estimated GFR () 93.8 Estimated GFR (Non- 80.9 BUN/Creatinine Ratio 16.3 Random Glucose 102 mg/dl Calcium Level 8.9 mg/dl Imaging: EEG- : This EEG is essentially normal during wakefulness without evidence for focal or generalized encephalopathy and without evidence for potentially epileptogenic activity. Exam: Physical Exam: Constitutional:thin pale Ears, Nose, Mouth and Throat: mucous membranes moist, no injection and skin normal, eyes normal Cardiovascular: normal S-1 and S-2 and regular rate and rhythm Respiratory: clear to auscultation (CTA) and no rales, rhonchi or wheeze Musculoskeletal: no peripheral edema and good distal pulses Skin: no stigmata of neurocutaneous disease noted and normal and intact Eyes: extraocular muscles intact (EOMI) and pupils equal, round and reactive to light (PERRL), decreased blink frequency, mask facies NEUROLOGIC EXAMINATION: Mental status: Alert and interactive Oriented [facility] 2017, [facility] Oriented to person Speech fluent with no evidence of aphasia Cranial Nerves facial symmetric Reflexes: Deep tendon reflexes were symmetrical and graded 2/5. Plantar responses were neutral Gait/Stance: Posture sitting up in bed Motor: Negative for pronator drift of out stretched arms with eyes closed. 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 bilaterally hip flex plantar flex ext 5/5 bilaterally Current Inpatient Medications Medications (Trade) Dose Ordered Sig/Paz Route Start Time Stop Time Status Last Admin Dose Admin Ceftriaxone Sodium 1 gm/ Dextrose 50 ml @ 100 mls/hr Q24H IV 02/12/17 08:00 02/17/17 07:59 02/13/17 09:21 100 MLS/HR Miscellaneous (Iv Fluids Completed) 1 ea PRN PRN N/A 02/12/17 06:45 02/12/18 06:44 02/12/17 23:15 1 EA Acetaminophen (Tylenol Tab) 650 mg Q4H PRN PO 02/12/17 06:30 03/14/17 06:29 Carbidopa/Levodopa (Sinemet 25/ 100MG Tab) 1 tab 0600,1000,1400,1800,2200 PO 02/12/17 10:00 03/14/17 09:59 02/13/17 13:41 1 TAB Carbidopa/Levodopa (Sinemet Cr 25/ 100MG Tab) 1 tab HS PO 02/12/17 21:00 03/14/17 20:59 02/12/17 21:07 1 TAB Citalopram Hydrobromide (celeXA TAB) 40 mg DAILY PO 02/12/17 08:00 03/14/17 08:59 02/13/17 09:08 40 MG Entacapone (Comtan) 200 mg 0600,1000,1400,1800,2200 PO 02/12/17 10:00 03/14/17 09:59 02/13/17 13:41 200 MG Ibuprofen (Advil Tab) 400 mg Q6H PRN PO 02/12/17 06:30 03/14/17 06:29 Ketorolac Tromethamine (Toradol Inj) 30 mg Q6H PRN IV 02/12/17 06:30 02/17/17 06:29 Oxycodone/ Acetaminophen (Percocet 5-325mg Tab) 1 tab Q6H PRN PO 02/12/17 06:30 02/26/17 06:29 Ondansetron HCl (Zofran Inj) 4 mg Q6H PRN IV 02/12/17 06:30 03/14/17 06:29 Morphine Sulfate (MoRPHine SULFATE INJ) 4 mg Q3H PRN IV 02/12/17 06:30 02/26/17 06:29 Impression 61 year old female s/p fall with LOC /concussion/ hx dementia with parkinson's features Plan 1. continue current parkinson's medication- Sinemet 25/100 mg 0600/1000/1600/ 1800/2000 along with Comtan 200 mg with dosing. CR 25/100 hs 2. PT/OT/speech for discharge needs- some difficulty with clearing saliva- she states she did well- documentation pending. 3. walker should be used at all times- to avoid further falls 4. home safety and nursing check at discharge 5. LOC -EEG- normal 6. fall precautions 7. UTI - currently on ceftriaxone treat to culture 8. orthostatic blood pressures evaluate due to falls- appropriate blood pressure response I have seen and discussed above patient with Dr Dalila Spivey, neurology Pt seen and examined. No complaints, no headache. Speech has seen pt but at the time of eval, note not on chart. Vitals, not orthostatic. EEG no sz. Pt awake, alert, facial masking, some blepharospasm, head drop. Moderate rest tremor. Gait with walker narrow-based, postural instability with some minor freezing. Imp FTD with parkinsonism, post-fall. Pt improved. Discussed importance of using assistive device. Spoke about rehab, possible use of exercise bicycle in home . AJIT Spivey MD
[2017-02-13 15:05] VITALS: BP_SYST 131; BP_SYST 138; BP_SYST 142; BP_DIAS 76; BP_DIAS 86; BP_DIAS 89; PULSE 107; PULSE 112; PULSE 99; TEMP 37.2; O2SAT 97
--- NOTE | 2017-02-13 16:05 | Progress Note ---
Internal Med Progress Note Date of Service: Feb 13, 2017. Provider Documentation: SUBJECTIVE: Seen and examined at bedside. Denies any scalp soreness Denies chest pain, SOB, weakness, nausea, abd pain, urinary symptoms No new complaints OBJECTIVE: Vital Signs-as noted below Physical Exam: General Appearance:Moderately built and nourished, no apparent distress Head: normocephalic, Atraumatic Eyes: normal inspection, EOMI, PERRL Neck: supple, Trachea midline Respiratory/Chest: Normal sounds, CTA Cardiovascular: S1, S2, No murmur Abdomen/GI:Soft, Non tender, Bowel sounds present Extremities/Musculoskelatal:normal inspection, no edema Neurologic/Psych:grossly no focal neurological deficits, + resting tremor Skin: normal color, warm, scalp wound Lab data as noted below. ASSESSMENT & PLAN: S/P fall, Concussion H/O FTD with Parkinson's features and recurrent falls lately CT head: no acute intracranial findings PT/OT Fall precautions May need rehab EEG: normal Neuro checks Orthostatics:appropriate response H/O frontotemporal dementia with parkinsonian features Continue home meds EEG as below Appreciate Neurology input speech and swallow eval: regular diet, thin liquids, aspiration precautions UTI Denies Urinary symptoms No signs of sepsis Continue ceftriaxone for now Urine culture pending Mood disorder: Continue home meds stable DVT Px: SCDs. Code Status Full code. Disposition: Likely discharge to [facility] tomorrow PT/OT special services director consulted Discussed with patient's Dr. Omi Burrell today PROCEDURES: EEG: This EEG is essentially normal during wakefulness without evidence for focal or generalized encephalopathy and without evidence for potentially epileptogenic activity Vital Signs: Date Time Temp Pulse Resp B/P (MAP) Pulse Ox O2 Delivery O2 Flow Rate FiO2 02/13/17 15:05 37.2 99 20 138/76 (96) 97 Room Air 107 142/86 (104) 112 131/89 (103) 02/13/17 11:31 36.6 109 18 134/82 (99) 97 113 142/89 (106) 125 123/85 (98) 02/13/17 08:00 Room Air 02/13/17 07:51 37.1 95 16 134/82 (99) 95 Room Air 02/13/17 00:01 Room Air 02/12/17 23:57 37.0 97 20 123/75 (91) 96 Room Air 02/12/17 16:00 Room Air Lab Results: Results Past 24 Hours Test 02/13/17 06:28 Range/Units White Blood Count 6.47 4.8-10.8 K/uL Red Blood Count 4.21 4.2-5.4 M/uL Hemoglobin 12.6 12.0-16.0 g/dL Hematocrit 39.6 37-47 % Mean Corpuscular Volume 94.1 80-100 fL Mean Corpuscular Hemoglobin 29.9 25-34 pg Mean Corpuscular Hemoglobin Concent 31.8 32-36 g/dl Platelet Count 247 130-400 K/uL Mean Platelet Volume 9.6 7.4-10.4 fL Neutrophils (%) (Auto) 69.6 % Lymphocytes (%) (Auto) 19.9 % Monocytes (%) (Auto) 9.0 % Eosinophils (%) (Auto) 1.1 % Basophils (%) (Auto) 0.2 % Neutrophils # (Auto) 4.51 1.4-6.5 K/uL Lymphocytes # (Auto) 1.29 1.2-3.4 K/uL Monocytes # (Auto) 0.58 0.11-0.59 K/uL Eosinophils # (Auto) 0.07 0-0.5 K/uL Basophils # (Auto) 0.01 0-0.2 K/uL RDW Standard Deviation 47.5 36.4-46.3 fL RDW Coefficient of Variation 13.7 11.5-14.5 % Immature Granulocyte % (Auto) 0.2 % Immature Granulocyte # (Auto) 0.01 0.00-0.02 K/uL Sodium Level 141 136-145 mmol/L Potassium Level 4.0 3.5-5.1 mmol/L Chloride Level 110 98-107 mmol/L Carbon Dioxide Level 27 21-32 mmol/L Anion Gap 4.0 3-11 mmol/L Blood Urea Nitrogen 13 7-18 mg/dl Creatinine 0.78 0.60-1.20 mg/dl Est Creatinine Clear Calc Drug Dose 69.1 ml/min Estimated GFR () 93.8 Estimated GFR (Non- 80.9 BUN/Creatinine Ratio 16.3 10-20 Random Glucose 102 70-99 mg/dl Calcium Level 8.9 8.5-10.1 mg/dl
[2017-02-13] MEDS: CARBIDOPA/LEVODOPA 25/100MG EXT REL TAB PO SCH (20:59)
[2017-02-13 23:44] VITALS: BP 131/81; PULSE 84; TEMP 37; O2SAT 97
[2017-02-14] MEDS: ENTACAPONE 200 MG TAB PO SCH ×3 (05:41→13:27)
[2017-02-14] MEDS: CARBIDOPA/LEVODOPA 25/100MG TAB PO SCH ×3 (05:41→13:27)
[2017-02-14 07:41] VITALS: BP_SYST 125; BP_SYST 131; BP_SYST 134; BP_DIAS 80; BP_DIAS 82; BP_DIAS 83; PULSE 113; PULSE 85; PULSE 88; TEMP 36.9; O2SAT 93
[2017-02-14] MEDS: CEFTRIAXONE SOD INJ 1 GM in DEXTROSE 5% ADD-VANTAGE 50ML 50 ML IV SCH (08:58)
[2017-02-14] MEDS: CITALOPRAM 40 MG TAB PO SCH (08:58)
--- NOTE | 2017-02-14 12:06 | Progress Note ---
Internal Med Progress Note Date of Service: Feb 14, 2017. Provider Documentation: SUBJECTIVE: Seen and examined at bedside. States feeling well. Denies chest pain, SOB, weakness, nausea, abd pain, urinary symptoms No new complaints OBJECTIVE: Vital Signs-as noted below Physical Exam: General Appearance:Moderately built and nourished, no apparent distress Head: normocephalic, Atraumatic Eyes: normal inspection, EOMI, PERRL Neck: supple, Trachea midline Respiratory/Chest: Normal sounds, CTA Cardiovascular: S1, S2, No murmur Abdomen/GI:Soft, Non tender, Bowel sounds present Extremities/Musculoskelatal:normal inspection, no edema Neurologic/Psych:grossly no focal neurological deficits, + resting tremor Skin: normal color, warm, scalp wound Lab data as noted below. ASSESSMENT & PLAN: S/P fall, Concussion H/O FTD with Parkinson's features and recurrent falls lately CT head: no acute intracranial findings PT/OT Fall precautions Needs rehab EEG: normal Neuro checks Orthostatics:appropriate response H/O frontotemporal dementia with parkinsonian features Continue home meds EEG as below Appreciate Neurology input speech and swallow eval: regular diet, thin liquids, aspiration precautions UTI Denies Urinary symptoms No signs of sepsis Completed ceftriaxone day # 3 Urine culture:e.coli Mood disorder: Continue home meds stable DVT Px: SCDs. Code Status Full code. Disposition: Plan to discharge to [facility] today Follow up with in 1 week after discharge from [facility] Follow up with Neurology in 2-3 weeks as advised Seek immediate medical attention if your symptoms reoccur or worsen PT/OT special services coordinator consulted Discussed with patient's Dr. Omi Burrell today PROCEDURES: EEG: This EEG is essentially normal during wakefulness without evidence for focal or generalized encephalopathy and without evidence for potentially epileptogenic activity Vital Signs: Date Time Temp Pulse Resp B/P (MAP) Pulse Ox O2 Delivery O2 Flow Rate FiO2 02/14/17 08:00 Room Air 02/14/17 07:41 36.9 88 16 131/80 (97) 93 Room Air 85 134/83 (100) 113 125/82 (96) 02/14/17 00:02 Room Air 02/13/17 23:44 37.0 84 16 131/81 (98) 97 Room Air 02/13/17 19:47 Room Air 02/13/17 16:00 Room Air 02/13/17 15:05 37.2 99 20 138/76 (96) 97 Room Air 107 142/86 (104) 112 131/89 (103)
--- NOTE | 2017-02-14 12:11 | Discharge Summary ---
Discharge Summary Date of Service Feb 14, 2017. Discharge Summary Admission Date: Feb 13, 2017 at 15:32 Discharge Date: Feb 14, 2017 Discharge Disposition: Rehab Principal Diagnosis: Concussion, Fall, UTI Procedures: EEG: This EEG is essentially normal during wakefulness without evidence for focal or generalized encephalopathy and without evidence for potentially epileptogenic activity CT Head: 1. No acute intracranial findings 2. Right frontal scalp laceration with associated soft tissue swelling 3. Mild ventricular dilatation CT C-spine: 1. There is no evidence of fracture or subluxation involving the cervical spine. 2. Osteopenia and spondylotic change as above. Consultations: Neurology Pending Studies/Follow-Up: Follow up with in 1 week after discharge from [facility] Follow up with Neurology in 2-3 weeks as advised Seek immediate medical attention if your symptoms reoccur or worsen Medication Reconciliation Continued Medications: Carbidopa/Levodopa (Sinemet 25MG/100MG) Tab 1 TAB PO 5XD, TAB TAKES AT 0600, 1000, 1400, 1800 & 2200 Carbidopa/Levodopa (Sinemet Cr 25MG/100MG) Tabcr 1 TAB PO HS, TAB Citalopram (Citalopram Hydrobromide) 40 Mg Tab 40 MG PO DAILY Entacapone (Comtan) 200 Mg Tab 200 MG PO 5XD, TAB TAKES AT 0600, 1000, 1400, 1800 & 2200 Admission Information HPI (per Admitting provider): CHIEF COMPLAINT: Fall, head trauma. HISTORY OF PRESENT ILLNESS: History was obtained from the patient, records and patient's . Medical history is significant for arthritis, mood disorder, left renal angioma sp, frontotemporal dementia with Parkinsonian features. As per , of late the patient is falling more than usual/ [facility] rehabilitation stay last November 2016. Hours ago, the patient had a fall in the kitchen, hit her head against the tile floor. Px was unresponsive for a few minute. Patient sustained a laceration on the right taoist. Patient denies chest pain or shortness of breath. Scalp laceration sutured in the Emergency Room. Patient also noted to be incontinent of large amount of urine upon arrival at the Emergency Room. No fever, no chills. Physical Exam (per Admitting): PHYSICAL EXAMINATION: VITAL SIGNS: Blood pressure was noted to be 144/85, pulse rate 98, RR 18, temperature 36.5 and sats 95 on room air. GENERAL: Noted to be comfortable, no respiratory distress, flat affect. SKIN: Normal color, note of multiple bruising on all four extremities HEENT: Sutured laceration right taoist. [place] palpebral conjunctivae. Dry mucosa. NECK: No JVD. Supple. CHEST: Clear to auscultation. HEART: Regular rate and rhythm. ABDOMEN: Soft. EXTREMITIES: No edema, no tenderness. NEUROLOGIC: No gross focality except for some rest tremors. Gait and stance not assessed Hospital Course S/P fall, Concussion H/O FTD with Parkinson's features and recurrent falls lately CT head: no acute intracranial findings PT/OT Fall precautions Needs rehab EEG: normal Neuro checks Orthostatics:appropriate response H/O frontotemporal dementia with parkinsonian features Continue home meds EEG as below Appreciate Neurology input speech and swallow eval: regular diet, thin liquids, aspiration precautions UTI Denies Urinary symptoms No signs of sepsis Completed ceftriaxone day # 3 Urine culture:e.coli Mood disorder: Continue home meds stable DVT Px: SCDs. Code Status Full code. Disposition: Plan to discharge to [facility] today Follow up with in 1 week after discharge from [facility] Follow up with Neurology in 2-3 weeks as advised Seek immediate medical attention if your symptoms reoccur or worsen PT/OT building services engineer consulted Discussed with patient's Dr. Omi Burrell today PROCEDURES: EEG: This EEG is essentially normal during wakefulness without evidence for focal or generalized encephalopathy and without evidence for potentially epileptogenic activity Total time spent on discharge = 36 minutes This includes examination of the patient, discharge planning, medication reconciliation, and communication with other providers. Discharge Instructions Discharge Instructions Date of Service Feb 14, 2017. Admission Reason for Admission: Concussion Discharge Discharge Diagnosis / Problem: Concussion, Fall, UTI Discharge Goals Goal(s): Decrease discomfort, Improve function Activity Recommendations Activity Limitations: resume your previous activity Exercise/Sports Limitations: as tolerated Driving or Machine Use: Do not drive until cleared by your primary care doctor . Instructions / Follow-Up Instructions / Follow-Up Follow up with in 1 week after discharge from [facility] Follow up with Neurology in 2-3 weeks as advised Seek immediate medical attention if your symptoms reoccur or worsen Current Hospital Diet Patient's current hospital diet: AHA Diet (Heart Healthy) Discharge Diet Recommended Diet: AHA Diet (Heart Healthy) Pending Studies Studies pending at discharge: no Medical Emergencies . Who to Call and When: Medical Emergencies: If at any time you feel your situation is an emergency, please call 911 immediately. . Non-Emergent Contact Non-Emergency issues call your: Primary Care Provider, Neurologist Call Non-Emergent contact if: you have a fever, you have any medication questions If your symptoms reoccur or worsen . . "Provider Documentation" section prepared by Taco Angelo. . VTE Core Measure Inpt VTE Proph given/why not?: SCD's
[2017-02-14 14:01] VITALS: BP 125/82; PULSE 113; TEMP 36.9; O2SAT 93
== END 2017-02-14 15:10 | DRG 89 ==
LOC: C.EDB 04:20 → EDBD 04:20 → C.4E 06:21 → ENRESERV 06:41 → C.4E 20:36 → OBSVTOIN 02-13 15:32
PROVIDERS: ADMIT Internal Medicine; ATTEND Internal Medicine
PROC: 0HQ0XZZ Repair Scalp Skin, External Approach (ICD-10-PCS; principal; 2017-02-12)
DX: S06.0X1A Concussion with loss of consciousness of 30 minutes or less, initial encounter (principal); N39.0 Urinary tract infection, site not specified; S01.01XA Laceration without foreign body of scalp, initial encounter; B96.20 Unspecified Escherichia coli [E. coli] as the cause of diseases classified elsewhere; W01.198A Fall on same level from slipping, tripping and stumbling with subsequent striking against other object, initial encounter; Y92.002 Bathroom of unspecified non-institutional (private) residence as the place of occurrence of the external cause; R29.6 Repeated falls; R32 Unspecified urinary incontinence; G31.09 Other frontotemporal neurocognitive disorder; G31.83 Neurocognitive disorder with Lewy bodies; F02.80 Dementia in other diseases classified elsewhere, unspecified severity, without behavioral disturbance, psychotic disturbance, mood disturbance, and anxiety; F39 Unspecified mood [affective] disorder; M19.90 Unspecified osteoarthritis, unspecified site; Z91.81 History of falling; Z79.899 Other long term (current) drug therapy

== ENCOUNTER 2017-02-17 10:27 | Emergency (ER) | payer OTHER ==
[~2017-02-17] VITALS: Ht 167.6 cm; Wt 60.3 kg
[~2017-02-17 10:27] MED LIST changes: +CARB25TA12 PO; +CARB25TA16 PO; -CLX20 PO; +CLX40 PO; -DPKEC250 PO; -DPKEC500 PO; +ENTA200T PO; -MULT-506 PO; -TOPI25TA99 PO; -[UNRECOGNIZED DRUG - OTHER] PO
[2017-02-17 10:33] VITALS: TEMP 36.8; Ht 167.6 cm; Wt 60.3 kg
[2017-02-17] MEDS ORDERED: LIDOCAINE/EPINEPH/TETRACAINE 1 EA SYR EXT STA (11:03)
[2017-02-17] MEDS ORDERED: XYLOCAINE 1%/SOD BICARB 20 ML VIAL INFIL ONE (11:15)
--- NOTE | 2017-02-17 11:23 | EMERGENCY ROOM VISIT NOTE ---
History Report prepared by Rich: Deanne López Under the Supervision of: Dr. Jair Espitia M.D. 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 The patient states that she is staying at [facility] for frequent falls. She notes that she has a history of dementia and Parkinson's disease. She reports that she was at physical therapy today and tripped while using a walker and fell on her butt before hitting the back of her head on a table. She complains of a head injury. The patient denies any loss of consciousness, chest pain, headache, neck pain, shortness of breath, abdominal pain, hip pain, arm pain, leg pain. The patient's notes that she fell 4 days ago and hit her head then as well and had a CT scan, EEG, and full workup before going to [facility] for rehabilitation. He reports that she is not on any blood thinners. Source of History: patient, spouse/significant other Onset: just TUNNEL MUCKER Position: other (global) Quality: other (fall) Timing: other (episode) Associated Symptoms: No LOC, No headache, No neck pain, No chest pain, No SOB, No abdominal pain Note: She complains of a head injury. The patient denies any hip pain, arm pain, leg pain. Review of Systems See HPI for pertinent positives & negatives. A total of 10 systems reviewed and were otherwise negative. Past Medical & Surgical Medical Problems: (1) Appendectomy (2) Bipolar disorder (3) Cholecystectomy (4) Concussion (5) Migraine (6) Uterine Ablation Old medical records were reviewed. Nurse's notes were reviewed and I agree with. Family History No pertinent family history Social History Smoking Status: Never Smoker Drug Use: none Marital Status: Housing Status: lives with family Current/Historical Medications Scheduled Carbidopa/Levodopa (Sinemet 25MG/100MG), 1 TAB PO 5XD Carbidopa/Levodopa (Sinemet Cr 25MG/100MG), 1 TAB PO HS Citalopram (Citalopram Hydrobromide), 40 MG PO DAILY Entacapone (Comtan), 200 MG PO 5XD Allergies Coded Allergies: Sulfa Antibiotics (Verified Allergy, Severe, HIVES, 02/17/17) Penicillins (Verified Allergy, Unknown, RASH, 02/17/17) Physical Exam Vital Signs Date Time Temp Pulse Resp B/P (MAP) Pulse Ox O2 Delivery O2 Flow Rate FiO2 02/17/17 12:29 93 18 141/83 98 Room Air 02/17/17 10:33 36.8 93 18 146/85 98 Room Air Physical Exam General: Well developed well nourished chronically ill appearing older female in no acute distress, breathing comfortably on room air. Normal speech HEENT: Several old bruises on her face with a healed laceration on the right scalp, new laceration on left scalp above the ear. Pupils are equal round and reactive to light. Extraocular movements are intact. Oropharynx is pink with moist mucous membranes. No swelling of the mouth lips or tongue. Neck: Supple with a midline trachea. No meningeal signs or stiffness, no JVD or bruits. No Stridor. Chest: Clear to auscultation bilaterally. No wheezes or rhonchi. No increased work of breathing. Heart: regular rate and rhythm. Abdomen: Soft nontender, nondistended without rebound guarding or rigidity. Extremities: No cyanosis clubbing or edema. No calf tenderness or assymetry Spine/Back. Non tender to palpation. No CVA tenderness Skin: Good turgor without rashes. Several old bruises on her face with a healed laceration on the right scalp, new laceration on left scalp above the ear. Neurologic exam: Cranial nerves two through 12 are intact. Motor and sensation are intact and symmetrical throughout. Baseline tremor and Parkinson's Disease. Medical Decision & Procedures Medications Administered Medications (Trade) Dose Ordered Sig/[facility] Route Start Time Stop Time Status Last Admin Dose Admin Tetracaine/ Epinephrine/ Lidocaine (L.e.t. Gel 4%/ 1:100/0.5%) 1 ea NOW STAT EXT 02/17/17 11:03 02/17/17 11:04 DC 02/17/17 11:22 1 EA ED Course 1040: Past medical records reviewed. The patient was evaluated in room B7, and a complete history and physical examination were performed. 1103: Tetracaine/Epinephrine/Lidocaine 1 ea EXT. 1115: Lidocaine HCl 20ml INFIL. 1138: I reevaluated the patient and he is doing well. 1202: Yao Baugh PA-C repaired the patient's laceration. 1248: Upon reevaluation, the patient is doing well. I discussed the results and treatment plan with the patient and her . They verbalized agreement of the treatment plan. The patient was discharged home. Medical Decision Differential diagnosis includes laceration, head injury, trauma. This patient comes in as described above. She suffered a mechanical fall. She does have Parkinson's and some dementia has been falling a lot more lately. She was just admitted to the hospital with a fall and had a severe trauma of her head at that point and had a CAT scan. She did hit her head today and appears to be at her normal neurologic baseline discussed this with her who is a physician he agrees. He does not feel she is another CAT scan at this point she had no loss of consciousness and she's had a normal baseline I agree she is also not on any blood thinners. She is up-to-date on tetanus booster we did repair her laceration as outlined above. She's no other injuries or complaints. She will be sent back to [facility]. She will have the caleb removed in 5 days. The patient and her rapid plan she was discharged. Medication Reconcilliation Current Medication List: was personally reviewed by me Blood Pressure Screening Patient's blood pressure: Elevated blood pressure Blood pressure disposition: Elevated BP felt to be situational Impression Primary Impression: Laceration Additional Impression: Concussion Scribe Attestation The scribe's documentation has been prepared under my direction and personally reviewed by me in its entirety. I confirm that the note above accurately reflects all work, treatment, procedures, and medical decision making performed by me. Departure Information Dispostion Home / Self-Care Referrals Amanda Cisneros M.D. (PCP) Forms HOME CARE DOCUMENTATION FORM, IMPORTANT VISIT INFORMATION Additional Instructions Rest Drink plenty of fluids REturn if: worsening of symptoms, increasing pain, any new problems or concerns Caleb out in 5 days Problem Qualifiers
--- NOTE | 2017-02-17 12:21 | EMERGENCY ROOM VISIT NOTE ---
ED Visit Note 61-year-old female who I was asked by Dr. Espitia, ED attending physician, to perform a left parietal scalp laceration repair, and suture removal from a right forehead laceration that was repaired in our department 5 days ago. Please see Dr. Espitia's dictation for further treatment and final disposition. PROCEDURE NOTE: Patient provided verbal consent for laceration repair under local anesthesia. LET gel was already applied for approximately 15 minutes prior to my exam. The patient also consented for further local anesthesia. Using buffered 1% lidocaine without epinephrine, good local anesthesia was administered. The peripheral tissue was then cleansed with iodine, then the wound was copiously pressure irrigated with normal saline. The laceration does extend to the subcutaneous fat in the central portion of the wound, but the margins are partial dermal thickness lacerations. After thorough irrigation, the wound was then approximated using ching 4. Bacitracin dressing was applied. Total laceration length was 2 cm. Four sutures were removed from the right upper forehead laceration that has healed well. There is mild peripheral erythema without any induration, fluctuance or drainage from the wound.
[2017-02-17 12:29] VITALS: BP 141/83; PULSE 93; O2SAT 98
== END 2017-02-17 13:08 | disposition home or self-care (01) ==
LOC: EDBD 10:27 → C.EDB 10:28
DX: S01.01XA Laceration without foreign body of scalp, initial encounter (principal); S06.0X0A Concussion without loss of consciousness, initial encounter; G20 Parkinson's disease; W18.09XA Striking against other object with subsequent fall, initial encounter; Y92.89 Other specified places as the place of occurrence of the external cause; F03.90 Unspecified dementia, unspecified severity, without behavioral disturbance, psychotic disturbance, mood disturbance, and anxiety; F31.9 Bipolar disorder, unspecified; Z90.49 Acquired absence of other specified parts of digestive tract; Z79.899 Other long term (current) drug therapy

== ENCOUNTER 2017-04-09 07:34 | Emergency (ER) | payer OTHER ==
[~2017-04-09] VITALS: Ht 167.6 cm; Wt 54.0 kg
[2017-04-09 07:39] VITALS: TEMP 36.9; Ht 167.6 cm; Wt 54.0 kg
[2017-04-09] MEDS ORDERED: DOCU100C31 PO (07:48)
--- NOTE | 2017-04-09 08:36 | DIAGNOSTIC IMAGING REPORT ---
HEAD WITHOUT CONTRAST (CT) CLINICAL HISTORY: 61 years-old Female with fall head injury. Acute head injury status post fall. TECHNIQUE: Multiple axial CT images of the head were obtained without contrast. A dose lowering technique was utilized adhering to the principles of ALARA. CT DOSE: 638.56 mGycm COMPARISON: CT head 02/12/2017. FINDINGS: No acute intracranial hemorrhage, midline shift, mass, large territorial ischemia or abnormal extra-axial collection. There is mild to moderate atrophy with ex vacuo ventriculomegaly. The calvarium is intact. The paranasal sinuses, mastoid air cells, and middle ear cavities are clear. There is mild residual soft tissue swelling of the right frontal scalp with associated skin ching present. There is new mild soft tissue swelling within the right periorbital tissues with a small 2.3 x 0.9 cm hematoma present. IMPRESSION: 1. No acute intracranial abnormality. Negative for hemorrhage or calvarial fracture. 2. Skin ching are noted in the area of prior scalp laceration. There is a new small right periorbital hematoma, 2.3 cm. 3. Atby-gw-yfphmeyq atrophy with ex vacuo ventriculomegaly redemonstrated. The above report was generated using voice recognition software. It may contain grammatical, syntax or spelling errors. Electronically signed by: Dusty Thomson M.D. 04/09/2017 8:35 AM Dictated Date/Time: 04/09/2017 8:32 AM
--- NOTE | 2017-04-09 09:52 | EMERGENCY ROOM VISIT NOTE ---
History Report prepared by Rich: Grover Carney Under the Supervision of: Dr. Kaiden Hutton D.O. First contact with patient: 07:40 Chief Complaint: FALL Stated Complaint: FALL History of Present Illness The patient is a 61 year old female who presents to the Emergency Room with complaints of a sudden fall occurring prior to arrival. The patient states that she was using her walker this morning, and she got dizzy and fell. She states that she hits her head, and she states that she is having some head pain. The patient denies any neck pain. She states that she was on the ground for fifteen minutes until someone found her. The patient has a history of Parkinson's, and she has frequent falls. Source of History: patient Onset: prior to arrival Position: other (global) Quality: other (fall) Timing: other (sudden) Associated Symptoms: No neck pain Note: Associated symptoms: dizziness Review of Systems See HPI for pertinent positives & negatives. A total of 10 systems reviewed and were otherwise negative. Past Medical & Surgical Medical Problems: (1) Appendectomy (2) Bipolar disorder (3) Cholecystectomy (4) Concussion (5) Migraine (6) Uterine Ablation Family History No pertinent family history Social History Smoking Status: Never Smoker Drug Use: none Marital Status: Housing Status: lives with family Current/Historical Medications Scheduled Carbidopa/Levodopa (Sinemet 25MG/100MG), 1 TAB PO TID Citalopram (Citalopram Hydrobromide), 40 MG PO DAILY Docusate Sodium (Docusate Sodium), 100 MG PO BID Entacapone (Comtan), 200 MG PO 5XD Allergies Coded Allergies: Sulfa Antibiotics (Verified Allergy, Severe, HIVES, 02/17/17) Penicillins (Verified Allergy, Unknown, RASH, 02/17/17) Physical Exam Vital Signs Date Time Temp Pulse Resp B/P (MAP) Pulse Ox O2 Delivery O2 Flow Rate FiO2 04/09/17 09:24 107 24 105/73 94 04/09/17 08:34 103 24 97 Room Air 04/09/17 07:39 36.9 115 48 115/73 98 Room Air Physical Exam CONSTITUTIONAL/VITAL SIGNS: Reviewed / noted above. GENERAL: Non-toxic in appearance. INTEGUMENTARY: Warm, dry, and [place]. HEAD: Y-shaped laceration to the scalp at the midline starting at the scalp hairline near the forehead. Contusion to the right superolateral orbit. Normocephalic. EYES: without scleral icterus or trauma. ENT/OROPHARYNX: clear and moist. LYMPHADENOPATHY/NECK: Is supple without lymphadenopathy or meningismus. RESPIRATORY: Lungs clear and equal. CARDIOVASCULAR: Regular rate and rhythm. GI/ABDOMEN: Soft and nontender. No organomegaly or pulsatile mass. No rebound or guarding. Normal bowel sounds. EXTREMITIES: Mild contusions to the bilateral knees. Warm and well perfused. BACK: No CVA tenderness. NEUROLOGICAL: Intact without focal deficits. PSYCHIATRIC: normal affect. MUSCULOSKELETAL: Normally developed with good muscle tone. Medical Decision & Procedures ER Provider Diagnostic Interpretation: Radiology results as stated below per my review and radiologist interpretation: HEAD WITHOUT CONTRAST (CT) CLINICAL HISTORY: 61 years-old Female with fall head injury. Acute head injury status post fall. TECHNIQUE: Multiple axial CT images of the head were obtained without contrast. A dose lowering technique was utilized adhering to the principles of ALARA. CT DOSE: 638.56 mGycm COMPARISON: CT head 02/12/2017. FINDINGS: No acute intracranial hemorrhage, midline shift, mass, large territorial ischemia or abnormal extra-axial collection. There is mild to moderate atrophy with ex vacuo ventriculomegaly. The calvarium is intact. The paranasal sinuses, mastoid air cells, and middle ear cavities are clear. There is mild residual soft tissue swelling of the right frontal scalp with associated skin ching present. There is new mild soft tissue swelling within the right periorbital tissues with a small 2.3 x 0.9 cm hematoma present. IMPRESSION: 1. No acute intracranial abnormality. Negative for hemorrhage or calvarial fracture. 2. Skin ching are noted in the area of prior scalp laceration. There is a new small right periorbital hematoma, 2.3 cm. 3. [id number] atrophy with ex vacuo ventriculomegaly redemonstrated. The above report was generated using voice recognition software. It may contain grammatical, syntax or spelling errors. Electronically signed by: Dusty Thomson M.D. 04/09/2017 8:35 AM Dictated Date/Time: 04/09/2017 8:32 AM Procedure Location: Scalp Total length: 12cm Complexity: Simple Verbal consent was obtained after the risks and benefits were explained, including but not limited to bleeding, scarring, infection, pain, and bone/ nerve damage. At this time, the risks of the procedure are less than the risks of NOT performing the procedure. A time out was taken and the correct patient and site identified. The hair cleared from the wound. The wound was explored for foreign bodies and none found. Debridement was not performed. The wound edges were approximated using 8 surgical ching in the standard fashion. Hemostasis and excellent approximation was achieved. Detailed wound care instructions and signs and symptoms of infection reviewed with the patient. No complications and the patient tolerated the procedure well. ED Course 0750: Previous medical records were reviewed. The patient was evaluated in room A3. A complete history and physical examination was performed. 0950: On reevaluation, the patient is doing well. I discussed the results and findings with the patient. She verbalized agreement of the treatment plan. She was discharged home. Medical Decision Differential includes close head injury, intracranial bleed, facial trauma, cervical spine trauma, chest and thoracic trauma, abdominal and intra-abdominal trauma, spine neurologic trauma, extremity trauma. This is a 61-year-old female who presents to the ED with a chief complaint of a fall. The patient reportedly fell this morning. It was a ground-level fall. She struck her head on the ground. She has a large laceration to the scalp just into the hairline in the forehead region projecting backwards. It is Y- shaped with the Y portion of the laceration near the forehead. There is no contamination. There is no minimal bleeding. A CT scan of the brain did not show acute intracranial injury. She does have a contusion/small hematoma in the right supraorbital region as well. She denies any neck or back pain. Denies extremity pain. Denies other injuries. The patient was felt to be stable for discharge back to the nursing facility. Medication Reconcilliation Current Medication List: was personally reviewed by me Blood Pressure Screening Patient's blood pressure: Normal blood pressure Impression Primary Impression: Fall Additional Impressions: Contusion of multiple sites Scalp laceration Scribe Attestation The scribe's documentation has been prepared under my direction and personally reviewed by me in its entirety. I confirm that the note above accurately reflects all work, treatment, procedures, and medical decision making performed by me. Departure Information Dispostion Home / Self-Care Referrals Amanda Cisneros M.D. (PCP) Forms HOME CARE DOCUMENTATION FORM, IMPORTANT VISIT INFORMATION Patient Instructions My [facility] Additional Instructions Follow-up with your doctor for further care and evaluation in 1-2 days. Return to the emergency department for worsening or new symptoms or any concerns. You have been examined and treated today on an emergency basis only. This is not a substitute for, or an effort to provide, complete comprehensive medical care. It is impossible to recognize and treat all injuries or illnesses in a single emergency department visit. It is therefore important that you follow up closely with your doctor. Call as soon as possible for an appointment. [place] should be removed in about 12-14 days. See your doctor for this. Problem Qualifiers
[2017-04-09 10:16] VITALS: BP 109/76; PULSE 109; O2SAT 93
== END 2017-04-09 10:17 | disposition home or self-care (01) ==
LOC: EDBD 07:34 → C.EDA 07:35
DX: S01.01XA Laceration without foreign body of scalp, initial encounter (principal); S00.93XA Contusion of unspecified part of head, initial encounter; W19.XXXA Unspecified fall, initial encounter; G20 Parkinson's disease; F31.9 Bipolar disorder, unspecified; Z87.820 Personal history of traumatic brain injury; Z90.49 Acquired absence of other specified parts of digestive tract; Z98.890 Other specified postprocedural states; Z79.899 Other long term (current) drug therapy; Z88.0 Allergy status to penicillin; Z88.2 Allergy status to sulfonamides

== ENCOUNTER 2017-05-19 17:50 | Inpatient (IN) | payer OTHER ==
[~2017-05-19] VITALS: Ht 167.6 cm; Wt 52.0 kg
[~2017-05-19 17:50] MED LIST changes: -CARB25TA16 PO; +DOCU100C31 PO
[2017-05-19] MEDS ORDERED: SODIUM CHLORIDE 0.9% 1000ML 1,000 ML IV STA (18:18)
[2017-05-19] MEDS ORDERED: LEVAQUIN 750MG / 150ML D5W IV STA (18:18)
[2017-05-19 18:28] LABS: BASO % 0.1 %; BASO ABS # 0.01 K/uL (0-0.2); COMPLETE YES; EOS % 0.2 %; HEMATOCRIT 40.7 % (37-47); IG% 0.2 %; LYMPH % 7.3 %; LYMPH ABS # 0.88 K/uL (1.2-3.4); MEAN CELL VOLUME 96.7 fL (80-100); MEAN CORPUSCULAR HEMOGLOBIN 30.9 pg (25-34); MEAN CORPUSCULAR HGB CONC 31.9 g/dl (32-36); MEAN PLATELET VOLUME 10.4 fL (7.4-10.4); MONO % 6.5 %; NEUT % 85.7 %; PLATELET COUNT 282 K/uL (130-400); RED BLOOD COUNT 4.21 M/uL (4.2-5.4); WHITE BLOOD COUNT 12.12 K/uL (4.8-10.8)
[2017-05-19] MEDS ORDERED: CEFEPIME IV 1,000 MG in DEXTROSE 5% 100ML 100 ML IV STA (18:33)
[2017-05-19 18:38] LABS: INR 0.9 (0.9-1.1); PROTHROMBIN TIME (PATIENT) 9.7 SECONDS (9.0-12.0)
[2017-05-19] MEDS ORDERED: CEFEPIME IV 1,000 MG in SYRINGE 0 ML IV STA (18:39)
--- NOTE | 2017-05-19 18:42 | DIAGNOSTIC IMAGING REPORT ---
CHEST ONE VIEW PORTABLE CLINICAL HISTORY: EVALUATE RESPIRATORY DISTRESS.DYSPNEA dyspnea COMPARISON STUDY: No previous studies for comparison. FINDINGS: No evidence for cardiac enlargement. Interstitial prominence right mid and lower lung. Minimal atelectasis medial left base. Pulmonary apices are clear. IMPRESSION: Poorly defined parenchymal infiltrate right and to lesser extent left base. The above report was generated using voice recognition software. It may contain grammatical, syntax or spelling errors. Electronically signed by: Demarcus Bridges M.D. 05/19/2017 6:41 PM Dictated Date/Time: 05/19/2017 6:40 PM
[2017-05-19] MEDS ORDERED: CARB50TA3 PO (18:43)
[2017-05-19 18:59] LABS: ALT/SGPT 9 U/L (12-78); AST/SGOT 20 U/L (15-37); BLOOD UREA NITROGEN 25 mg/dl (7-18); BUN/CREATININE RATIO 31.3 (10-20); CALCIUM 9.4 mg/dl (8.5-10.1); CARBON DIOXIDE 33 mmol/L (21-32); CHLORIDE 111 mmol/L (98-107); CREATININE 0.81 mg/dl (0.60-1.20); GLUCOSE 103 mg/dl (70-99); POTASSIUM 3.9 mmol/L (3.5-5.1); SODIUM 147 mmol/L (136-145)
[2017-05-19 19:03] LABS: ALB/GLOB RATIO 0.8 (0.9-2); ALKALINE PHOSPHATASE 63 U/L (45-117)
[2017-05-19 20:44] LABS: MANUAL MICROSCOPIC REQUIRED? YES; REVIEW REQ? NO; URINE APPEARANCE SLIGHTLY CLOUDY (CLEAR); URINE COLOR DK YELLOW
[2017-05-19 20:49] LABS: URINE SPECIFIC GRAVITY 1.028 (1.000-1.030)
[2017-05-19 20:54] LABS: SULFASALICYLIC ACID NEG (NEG)
[2017-05-19 21:00] LABS: URINE BACTERIA 3+ (NEG)
[2017-05-19 21:01] LABS: URINE RBC 0-4 /hpf (0-4)
[2017-05-19 21:49] LABS: ARTERIAL BLD GAS O2 SATURATION 97.9 % (90-95); ARTERIAL BLOOD GAS BASE EXCESS 4.1 mEq/L (-9-1.8); ARTERIAL BLOOD GAS HCO3 30 mmol/L (19-24); ARTERIAL BLOOD GAS PO2 109 mm/Hg (80-95)
[2017-05-19 21:58] LABS: ALLEN TEST POS (POS); O2 ADMINISTRATION 3.5 L
[2017-05-19] MEDS ORDERED: LEVALBUTEROL/IPRATROPIUM NEB INH STA (22:53)
[2017-05-19] MEDS ORDERED: OPTIRAY 320 IV PRN (23:00)
[2017-05-19] MEDS ORDERED: ACETAMINOPHEN 325 MG TAB PO PRN (23:00)
[2017-05-19] MEDS ORDERED: LEVALBUTEROL/IPRATROPIUM NEB INH PRN (23:00)
[2017-05-19] MEDS ORDERED: LEVALBUTEROL 1.25MG/0.5ML NEB INH STA (23:54)
[2017-05-19] MEDS ORDERED: IPRATROPIUM BROMIDE NEB SOLN 0.02% 2.5 ML VIAL INH STA (23:54)
[2017-05-19 23:58] VITALS: Ht 167.6 cm; Wt 52.0 kg
[2017-05-20] VITALS (10 sets, daily range): BP systolic 104–169; BP diastolic 62–88; PULSE 43–123; TEMP 36.8–37.2; O2SAT 91–97
--- NOTE | 2017-05-20 00:23 | EMERGENCY ROOM VISIT NOTE ---
History Report prepared by Rich: Adela Fregoso Under the Supervision of: Dr. Rui Irving D.O. First contact with patient: 18:10 Chief Complaint: SHORTNESS OF BREATH Stated Complaint: SOB History of Present Illness The patient is a 62 year old female who presents to the Emergency Room with complaints of shortness of breath. The patient denies any headache, chest pain, abdominal pain, or urinary symptoms. The patient notes that she recently fell and hit her head but was seen in the hospital for it. She notes gurgling in the back of her throat which is new. The patient has a history of frontotemporal Dementia and Parkinson's. Her room air is 88%. History limited secondary to dementia. Per nursing staff, The patient was found to be hypoxic and hypertensive and was believed to of aspirated. who is a doctor here confirms that patient is at baseline. Source of History: patient History Limited By: dementia Position: other (generalized) Quality: other (shortness of breath) Associated Symptoms: No chest pain, No abdominal pain Review of Systems ROS limited secondary to dementia. Past Medical & Surgical Medical Problems: (1) Appendectomy (2) Bipolar disorder (3) Cholecystectomy (4) Concussion (5) Migraine (6) Respiratory failure (7) Uterine Ablation Family History No pertinent family history Social History Smoking Status: Never Smoker Drug Use: none Marital Status: Housing Status: lives with family Current/Historical Medications Scheduled Carbidopa-Levodopa (Carbidopa/Levodopa Er), 1 TAB PO BID Carbidopa/Levodopa (Sinemet 25MG/100MG), 1 TAB PO TID Citalopram (Citalopram Hydrobromide), 40 MG PO DAILY Docusate Sodium (Docusate Sodium), 100 MG PO BID Entacapone (Comtan), 200 MG PO 5XD Allergies Coded Allergies: Sulfa Antibiotics (Verified Allergy, Severe, HIVES, 05/19/17) Penicillins (Verified Allergy, Unknown, RASH, 05/19/17) Physical Exam Vital Signs Date Time Temp Pulse Resp B/P (MAP) Pulse Ox O2 Delivery O2 Flow Rate FiO2 05/19/17 21:24 82 18 122/72 95 Room Air 05/19/17 20:29 103 20 145/82 97 Room Air 05/19/17 18:58 96 22 155/94 95 Nasal Cannula 4.0 05/19/17 18:03 96 05/19/17 18:01 93 Nasal Cannula 4.0 05/19/17 18:01 93 Nasal Cannula 4.0 05/19/17 18:01 93 Nasal Cannula 4.0 05/19/17 18:01 36.8 100 20 167/92 89 Room Air Physical Exam GENERAL: Laying up in bed, chronically ill appearing,on nasal cannula, disheveled, no distress, non-toxic EYE EXAM: normal conjunctiva. Green discharge from left eye. OROPHARYNX: no exudate, no erythema, lips, buccal mucosa, and tongue normal and mucous membranes are moist NECK: supple, no nuchal rigidity, no adenopathy, non-tender LUNGS: Coarse at bilateral bases HEART: no murmurs, S1 normal and S2 normal ABDOMEN: abdomen soft, non-tender, normo-active bowel sounds, no masses, no rebound or guarding. BACK: Back is symmetrical on inspection and there is no deformity, no midline tenderness, no CVA tenderness. SKIN: no rashes and no bruising UPPER EXTREMITIES: upper extremities are grossly normal. LOWER EXTREMITIES: No pitting edema. Calves equal in size bilaterally. NEURO EXAM: Awake, alert, orientated to person, place and time. Normal sensorium , cranial nerves II-XII grossly intact, normal speech, weak but no focal deficit in upper or lower extremities Medical Decision & Procedures ER Provider Diagnostic Interpretation: Radiology results as stated below per my review and the radiologist's interpretation: CHEST ONE VIEW PORTABLE FINDINGS: No evidence for cardiac enlargement. Interstitial prominence right mid and lower lung. Minimal atelectasis medial left base. Pulmonary apices are clear. IMPRESSION: Poorly defined parenchymal infiltrate right and to lesser extent left base. The above report was generated using voice recognition software. It may contain grammatical, syntax or spelling errors. Electronically signed by: Demarcus Bridges M.D. Laboratory Results 05/19/17 17:40 Red Blood Count 4.21, Mean Corpuscular Volume 96.7, Mean Corpuscular Hemoglobin 30.9, Mean Corpuscular Hemoglobin Concent 31.9, Mean Platelet Volume 10.4, Neutrophils (%) (Auto) 85.7, Lymphocytes (%) (Auto) 7.3, Monocytes (%) (Auto) 6.5, Eosinophils (%) (Auto) 0.2, Basophils (%) (Auto) 0.1, Neutrophils # (Auto) 10.40, Lymphocytes # (Auto) 0.88, Monocytes # (Auto) 0.79, Eosinophils # (Auto) 0.02, Basophils # (Auto) 0.01 05/19/17 17:40 Test 05/19/17 17:40 05/19/17 19:57 05/19/17 21:03 White Blood Count 12.12 K/uL (4.8-10.8) Red Blood Count 4.21 M/uL (4.2-5.4) Hemoglobin 13.0 g/dL (12.0-16.0) Hematocrit 40.7 % (37-47) Mean Corpuscular Volume 96.7 fL (80-100) Mean Corpuscular Hemoglobin 30.9 pg (25-34) Mean Corpuscular Hemoglobin Concent 31.9 g/dl (32-36) Platelet Count 282 K/uL (130-400) Mean Platelet Volume 10.4 fL (7.4-10.4) Neutrophils (%) (Auto) 85.7 % Lymphocytes (%) (Auto) 7.3 % Monocytes (%) (Auto) 6.5 % Eosinophils (%) (Auto) 0.2 % Basophils (%) (Auto) 0.1 % Neutrophils # (Auto) 10.40 K/uL (1.4-6.5) Lymphocytes # (Auto) 0.88 K/uL (1.2-3.4) Monocytes # (Auto) 0.79 K/uL (0.11-0.59) Eosinophils # (Auto) 0.02 K/uL (0-0.5) Basophils # (Auto) 0.01 K/uL (0-0.2) RDW Standard Deviation 49.1 fL (36.4-46.3) RDW Coefficient of Variation 13.8 % (11.5-14.5) Immature Granulocyte % (Auto) 0.2 % Immature Granulocyte # (Auto) 0.02 K/uL (0.00-0.02) Prothrombin Time 9.7 SECONDS (9.0-12.0) Prothromb Time International Ratio 0.9 (0.9-1.1) Activated Partial Thromboplast Time 25.1 SECONDS (21.0-31.0) Partial Thromboplastin Ratio 1.0 Anion Gap 3.0 mmol/L (3-11) Est Creatinine Clear Calc Drug Dose 58.0 ml/min Estimated GFR () 89.0 Estimated GFR (Non- 76.8 BUN/Creatinine Ratio 31.3 (10-20) Calcium Level 9.4 mg/dl (8.5-10.1) Magnesium Level 2.4 mg/dl (1.8-2.4) Total Bilirubin 0.4 mg/dl (0.2-1) Aspartate Amino Transf (AST/SGOT) 20 U/L (15-37) Alanine Aminotransferase (ALT/SGPT) 9 U/L (12-78) Alkaline Phosphatase 63 U/L (45-117) Troponin I < 0.015 ng/ml (0-0.045) Pro-B-Type Natriuretic Peptide 180 pg/ml (0-900) Total Protein 7.5 gm/dl (6.4-8.2) Albumin 3.3 gm/dl (3.4-5.0) Globulin 4.2 gm/dl (2.5-4.0) Albumin/Globulin Ratio 0.8 (0.9-2) Urine Color DK YELLOW Urine Appearance SLIGHTLY CLOUDY (CLEAR) Urine pH (4.5-7.5) Urine Specific Redig 1.028 (1.000-1.030) Urine Protein NEG (NEG) Urine Glucose (UA) (NEG) Urine Ketones (NEG) Urine Occult Blood (NEG) Urine Nitrite (NEG) Urine Bilirubin (NEG) Urine Urobilinogen (NEG) Urine Leukocyte Esterase (NEG) Urine RBC 0-4 /hpf (0-4) Urine WBC 5-10 /hpf (0-5) Urine Epithelial Cells 0-5 /lpf (0-5) Urine Bacteria 3+ (NEG) Urine Yeast BUDDING (NONE PRSENT) Arterial Blood pH 7.40 (7.35-7.45) Arterial Blood Partial Pressure CO2 49 mmHg (35-46) Arterial Blood Partial Pressure O2 109 mm/Hg (80-95) Arterial Blood HCO3 30 mmol/L (19-24) Arterial Blood Oxygen Saturation 97.9 % (90-95) Arterial Blood Base Excess 4.1 mEq/L (-9-1.8) Arterial Blood Gas Delivery 3.5 L [place] Test POS (POS) Lactic Acid Level 0.6 mmol/L (0.4-2.0) Laboratory results per my review. Medications Administered Medications (Trade) Dose Ordered Sig/Paz Route Start Time Stop Time Status Last Admin Dose Admin Levofloxacin (Levaquin / D5W) 750 mg NOW STAT IV 05/19/17 18:18 05/19/17 18:21 DC 05/19/17 18:40 750 MG Sodium Chloride 1,000 ml @ 999 mls/hr Q1H1M STAT IV 05/19/17 18:18 05/19/17 19:18 DC 05/19/17 18:39 999 MLS/HR Cefepime HCl 1000 mg/Syringe 11 ml @ 5.5 mls/min NOW STAT IV 05/19/17 18:39 05/19/17 18:40 DC 05/19/17 18:57 5.5 MLS/MIN ECG Indication: SOB/dyspnea Rate (beats per minute): 93 Rhythm: sinus rhythm Findings: other (Normal axis, poor baseline) ED Course ED COURSE: Vital signs were reviewed and showed hypoxic and hypertensive. The patients medical record was reviewed The above diagnostic studies were performed and reviewed. ED treatments and interventions as stated above. 1812: The patient was evaluated in room B12B. A complete history and physical examination was performed. 1817: Sodium Chloride 1000 ml @ 999 mls/hr IV, Levofloxacin 750 mg IV, Cefepime HCl 1000 mg/Syringe 11 ml @ 5.5 mls/min IV. 1946: I reviewed the patient's case with Dr. Dow. He will evaluate the patient for further management. 2100: The patient is resting comfortably. 2136: Upon reevaluation, the patient is resting.I discussed my findings with the patient and she understands and agrees with the treatment plan. Based on the patients age, coexisting illnesses, exam and lab findings the decision to treat as an inpatient was made. The patient remained stable while under my care. The patient will be evaluated for further management. Medical Decision Differential diagnoses includes but is not limited to pneumonia, bronchitis, COPD/Asthma exacerbation, pneumothorax, pulmonary embolism, congestive heart failure, acute coronary syndrome. Patient is a 62-year-old female who [facility] Patient is mentally at baseline per who is a physician. Chest x-ray shows an infiltrate. Patient was hypoxic and placed on nasal cannula. CBC shows a mild leukocytosis. Sodium was slightly elevated consistent with dehydration. LFTs all troponin was negative. UA shows yeast. Patient was covered with broad- spectrum antibiotics. Patient was admitted to internal medicine with pneumonia and hypoxia. Medication Reconcilliation Current Medication List: was personally reviewed by me Blood Pressure Screening Patient's blood pressure: Elevated blood pressure Blood pressure disposition: Referred to PCP Consults Time Called: 1946 Consulting Physician: Dr. Dow Returned Call: 1946 I reviewed the patient's case with Dr. Dow. He will evaluate the patient for further management. Impression Primary Impression: Pneumonia Additional Impressions: Hypoxic Hypernatremia Scribe Attestation The scribe's documentation has been prepared under my direction and personally reviewed by me in its entirety. I confirm that the note above accurately reflects all work, treatment, procedures, and medical decision making performed by me. Departure Information Dispostion Being Evaluated By Hospitalist Referrals Amanda Cisneros M.D. (PCP) Patient Instructions My [facility] Problem Qualifiers Primary Impression: Pneumonia Pneumonia type: due to unspecified organism Laterality: unspecified laterality Lung location: unspecified part of lung Qualified Codes: J18.9 - Pneumonia, unspecified organism
[2017-05-20] MEDS ORDERED: SODIUM CHLOR 0.45% + 20MEQ KCL 1,000 ML IV ONE (00:30)
[2017-05-20] MEDS: IPRATROPIUM BROMIDE NEB SOLN 0.02% 2.5 ML VIAL INH SCH ×4 (00:54→19:13)
[2017-05-20] MEDS: LEVALBUTEROL 1.25MG/0.5ML NEB INH SCH ×4 (00:55→19:13)
[2017-05-20] MEDS: CLINDAMYCIN IV 600 MG in DEXTROSE 5% 50ML 50 ML IV SCH ×3 (01:42→17:29)
[2017-05-20] MEDS ORDERED: LEVALBUTEROL/IPRATROPIUM NEB INH SCH (03:00)
[2017-05-20 05:56] LABS: BASO % 0.3 %; BASO ABS # 0.02 K/uL (0-0.2); COMPLETE YES; EOS % 1.1 %; HEMATOCRIT 38.5 % (37-47); IG% 0.3 %; LYMPH % 11.5 %; LYMPH ABS # 0.85 K/uL (1.2-3.4); MEAN CELL VOLUME 98.2 fL (80-100); MEAN CORPUSCULAR HEMOGLOBIN 31.1 pg (25-34); MEAN CORPUSCULAR HGB CONC 31.7 g/dl (32-36); MEAN PLATELET VOLUME 10.3 fL (7.4-10.4); MONO % 6.3 %; NEUT % 80.5 %; PLATELET COUNT 220 K/uL (130-400); RED BLOOD COUNT 3.92 M/uL (4.2-5.4); WHITE BLOOD COUNT 7.41 K/uL (4.8-10.8)
[2017-05-20 06:33] LABS: BUN/CREATININE RATIO 29.7 (10-20); CALCIUM 9.2 mg/dl (8.5-10.1); CREATININE 0.64 mg/dl (0.60-1.20)
--- NOTE | 2017-05-20 07:06 | DIAGNOSTIC IMAGING REPORT ---
ADDENDUM ADDITIONAL IMPRESSION: 4. Ovoid 9 mm focal masslike region in the right breast. Mammographic correlation advised. The report will be called/faxed according to standard departmental protocol. Electronically signed by: Triston Bishop M.D. 05/20/2017 7:48 AM Dictated Date/Time: 05/20/2017 7:47 AM ORIGINAL REPORT (CHEST FOR PE) ANGIO WITH CLINICAL HISTORY: 62 years-old Female presenting with shortness of breath, clinical concern for pulmonary embolus. TECHNIQUE: Multidetector CT angiography of the chest was performed after administration of intravenous contrast. 3-D volumetric and/or maximum intensity projection (MIP) images were subsequently reconstructed for review. IV contrast: 89 mL of Optiray 320. A dose lowering technique was used consistent with the principles of ALARA (as low as reasonably achievable). COMPARISON: Chest x-ray performed earlier the same day. CT DOSE (mGy.cm): The estimated cumulative dose is 208.06 mGy.cm. FINDINGS: [place] topogram: Hyperinflation. Pulmonary vasculature: The study is suboptimal secondary to respiratory motion artifact somewhat limiting the gastric sensitivity of the exam for pulmonary embolus. Within this limitation, no central filling defect within the pulmonary arterial tree. Main pulmonary artery is not enlarged. No flattening of the interventricular septum. No intracardiac intracardiac filling defect. No reflux of contrast into the hepatic veins. Remaining chest: On soft tissue windows, normal thyroid and thoracic inlet. Ovoid 9 mm focal masslike region in the right breast (series 4 image 126). However, similar additional foci noted in the breasts bilaterally on a background of fibroglandular tissue. No axillary, supraclavicular, hilar, or mediastinal lymphadenopathy. Normal aorta. Normal heart size. No pericardial or pleural effusion. Upper abdomen notable for cholecystectomy clips. On lung windows, minimal dependent consolidation bilaterally which is more nodular and less peripheral and superior segment of the right lower lobe evaluation limited by respiratory motion. 3-4 mm solid nodule in the right upper lobe (series 4 image 208), poorly assessed due to motion artifact. Debris noted in the hypopharynx, larynx, and trachea. On bone windows, normal osseous structures. IMPRESSION: 1. Allowing for motion artifact, no central pulmonary embolus. 2. Minimal dependent bilateral consolidation with more nodular consolidation in the superior segment of the right lower lobe. Combined with extensive debris in the airway, this is concerning for aspiration. 3. 3 to 4 mm solid nodule in the right upper lobe, poorly assessed due to motion artifact. Follow-up per [employer] Society 2017 recommendations below. Please refer to below summary of Fleischner Society 2017 recommendations for follow-up of incidental CT nodules (Tomasz Pratt et al. Guidelines for management of incidental pulmonary nodules detected on CT images: From the Fleischner Society 2017. Radiology 2017; 284: 228-243.) SOLID NODULES Single nodule; size < 6 mm * Low risk patients: No routine follow-up * High risk patients: Optional CT at 12 months Single nodule; size 6-8 mm * Low risk patients: CT at 6-12 months, then consider CT at 18-24 months * High risk patients: CT at 6-12 months, then at 18-24 months Single nodule; size > 8 mm * Either low or high risk patients: Considered CT at 3 months, PET/CT, or tissue sampling Multiple nodules; size < 6 mm * Low risk patients: No routine follow up * High risk patients: Optional CT at 12 months Multiple nodules; size 6-8 mm * Low risk patients: CT at 3-6 months, then consider CT at 18-24 months * High risk patients: CT at 3-6 months, then at 18-24 months Multiple nodules; size > 8 mm * Low risk patients: CT at 3-6 months, then consider at 18-24 months * High risk patients: CT at 3-6 months, then at 18-24 months Note: These guidelines apply to incidental nodules. These guidelines do not apply to patients younger than 35 years, immunocompromised patients, or patients with cancer. * Low risk patients: Minimal or absent history of smoking and/or other known risk factors * High risk patients: History of smoking, exposure to other carcinogens, emphysema, fibrosis, upper lobe location, family history of lung cancer, etc. * If a nodule up to 8 mm is partly solid or is ground glass, further follow-up is required after 24 months to exclude possible slow growing adenocarcinoma. SUBSOLID NODULES Single ground-glass nodule * Nodule size < 6 mm: No routine follow-up * Nodule size > or = 6 mm: CT at 6-12 months to confirm persistence, then CT every 2 years until 5 years Single part-solid nodule * Nodule size < 6 mm: No routine follow-up * Nodules size > or = 6 mm: CT at 3-6 months to confirm persistence. If unchanged and solid component remains < 6 mm, annual CT should be performed for 5 years Multiple nodules * Nodule size < 6 mm: CT at 3-6 months. If stable, consider CT at 2 and 4 years. * Nodules size > or = 6 mm: CT at 3-6 months. Subsequent management based on the most suspicious nodule(s) Electronically signed by: Triston Bishop M.D. 05/20/2017 7:04 AM Dictated Date/Time: 05/20/2017 6:54 AM
[2017-05-20] MEDS: ENOXAPARIN 30 MG/0.3 ML SYR SC SCH (08:04)
[2017-05-20] MEDS: CARBIDOPA/LEVODOPA 25/100MG TAB PO SCH ×3 (08:05→19:42)
[2017-05-20] MEDS: ENTACAPONE 200 MG TAB PO SCH ×5 (08:05→23:59)
[2017-05-20] MEDS: CITALOPRAM 40 MG TAB PO SCH (08:06)
[2017-05-20] MEDS: LACTOBACILLUS ACIDOPHILUS (FLORANEX) TAB PO SCH ×3 (08:06→17:29)
[2017-05-20] MEDS: DOCUSATE SODIUM 100 MG CAP PO SCH ×2 (08:06→19:41)
[2017-05-20] MEDS ORDERED: CLINDAMYCIN CONSULT ACTIVE PRN ×2 (09:00)
[2017-05-20] MEDS ORDERED: CARBIDOPA/LEVODOPA 50/200MG EXT REL TAB PO SCH (09:00)
[2017-05-20] MEDS: CARBIDOPA/LEVODOPA 25/100MG EXT REL TAB PO SCH ×2 (09:04→19:42)
[2017-05-20] MEDS ORDERED: INFLUENZA VIRUS QUAD VACCINE 0.5 ML SYR IM. ONE (10:00)
[2017-05-20] MEDS ORDERED: INFLUENZA ADMINISTRATION CHARGE ONE (10:00)
--- NOTE | 2017-05-20 13:04 | Progress Note ---
Internal Med Progress Note Date of Service: May 20, 2017. Provider Documentation: SUBJECTIVE: Seen and examined at bedside Denies any chest pain, SOB, cough, dizziness, abd pain Sinus Tachycardia on monitor Discussed with : Has chronic tachycardia OBJECTIVE: Vital Signs-as noted below Physical Exam: General Appearance:Thin, Frail, no apparent distress Head: normocephalic, Atraumatic Eyes: normal inspection, EOMI, PERRL Neck: supple, Trachea midline Respiratory/Chest: Normal breath sounds, CTA Cardiovascular: S1, S2, No murmur, +Tachycardia Abdomen/GI:Soft, Non tender, Bowel sounds present Extremities/Musculoskelatal:normal inspection, no edema Neurologic/Psych:grossly no focal neurological deficits Skin: normal color, warm Lab data as noted below. ASSESSMENT & PLAN: Possible Aspiration Pneumonia: Presented with SOB, hypoxia, Leukocytosis CTA: no central pulmonary embolus, Minimal dependent bilateral consolidation with more nodular consolidation in the superior segment of the right lower lobe. Combined with extensive debris in the airway, this is concerning for aspiration. Leukocytosis normalized Saturating well on 2L NC Continue Clindamycin Speech and swallow eval Aspiration precautions Blood/Urine Culture pending HTN/Sinus Tachycardia: Will start on Atenolol Monitor H/O frontotemporal dementia with parkinsonian features Continue home meds Abnormal UA: Follow Urine Cx Mood disorder: Continue home meds stable RUL Pulmonary Nodule: Follow up as outpatient DVT Px: SQ Lovenox Code Status Full code. Disposition: To be determined PROCEDURES: CTA: 1. Allowing for motion artifact, no central pulmonary embolus. 2. Minimal dependent bilateral consolidation with more nodular consolidation in the superior segment of the right lower lobe. Combined with extensive debris in the airway, this is concerning for aspiration. 3. 3 to 4 mm solid nodule in the right upper lobe, poorly assessed due to motion artifact. Follow-up per Nikole Society 2017 recommendations below Vital Signs: Date Time Temp Pulse Resp B/P (MAP) Pulse Ox O2 Delivery O2 Flow Rate FiO2 05/20/17 12:00 Nasal Cannula 2.0 05/20/17 11:25 37.1 104 20 169/88 (115) 97 Nasal Cannula 2.0 05/20/17 08:00 Nasal Cannula 3.0 05/20/17 07:45 37.2 123 20 162/84 (110) 91 Room Air 05/20/17 07:22 102 20 96 Nasal Cannula 3.0 05/20/17 04:00 Nasal Cannula 3.0 05/20/17 03:00 36.8 116 26 151/88 (109) 96 Nasal Cannula 3.0 05/20/17 00:51 43 28 95 Nasal Cannula 3.0 05/20/17 00:35 36.8 108 24 148/84 96 Nasal Cannula 3.0 05/19/17 22:24 102 18 149/92 96 Nasal Cannula 3.0 05/19/17 22:23 98 05/19/17 21:24 82 18 122/72 95 Room Air 05/19/17 20:29 103 20 145/82 97 Room Air 05/19/17 18:58 96 22 155/94 95 Nasal Cannula 4.0 05/19/17 18:03 96 05/19/17 18:01 93 Nasal Cannula 4.0 05/19/17 18:01 93 Nasal Cannula 4.0 05/19/17 18:01 93 Nasal Cannula 4.0 05/19/17 18:01 36.8 100 20 167/92 89 Room Air Lab Results: Results Past 24 Hours Test 05/19/17 17:40 05/19/17 19:57 05/19/17 21:03 05/20/17 05:29 Range/Units White Blood Count 12.12 7.41 4.8-10.8 K/uL Red Blood Count 4.21 3.92 4.2-5.4 M/uL Hemoglobin 13.0 12.2 12.0-16.0 g/dL Hematocrit 40.7 38.5 37-47 % Mean Corpuscular Volume 96.7 98.2 80-100 fL Mean Corpuscular Hemoglobin 30.9 31.1 25-34 pg Mean Corpuscular Hemoglobin Concent 31.9 31.7 32-36 g/dl Platelet Count 282 220 130-400 K/uL Mean Platelet Volume 10.4 10.3 7.4-10.4 fL Neutrophils (%) (Auto) 85.7 80.5 % Lymphocytes (%) (Auto) 7.3 11.5 % Monocytes (%) (Auto) 6.5 6.3 % Eosinophils (%) (Auto) 0.2 1.1 % Basophils (%) (Auto) 0.1 0.3 % Neutrophils # (Auto) 10.40 5.97 1.4-6.5 K/uL Lymphocytes # (Auto) 0.88 0.85 1.2-3.4 K/uL Monocytes # (Auto) 0.79 0.47 0.11-0.59 K/uL Eosinophils # (Auto) 0.02 0.08 0-0.5 K/uL Basophils # (Auto) 0.01 0.02 0-0.2 K/uL RDW Standard Deviation 49.1 48.9 36.4-46.3 fL RDW Coefficient of Variation 13.8 13.7 11.5-14.5 % Immature Granulocyte % (Auto) 0.2 0.3 % Immature Granulocyte # (Auto) 0.02 0.02 0.00-0.02 K/uL Prothrombin Time 9.7 9.0-12.0 SECONDS Prothromb Time International Ratio 0.9 0.9-1.1 Activated Partial Thromboplast Time 25.1 21.0-31.0 SECONDS Partial Thromboplastin Ratio 1.0 Sodium Level 147 147 136-145 mmol/L Potassium Level 3.9 4.0 3.5-5.1 mmol/L Chloride Level 111 113 98-107 mmol/L Carbon Dioxide Level 33 31 21-32 mmol/L Anion Gap 3.0 3.0 3-11 mmol/L Blood Urea Nitrogen 25 19 7-18 mg/dl Creatinine 0.81 0.64 0.60-1.20 mg/dl Est Creatinine Clear Calc Drug Dose 58.0 70.0 ml/min Estimated GFR () 89.0 109.3 Estimated GFR (Non- 76.8 94.3 BUN/Creatinine Ratio 31.3 29.7 10-20 Random Glucose 103 112 70-99 mg/dl Calcium Level 9.4 9.2 8.5-10.1 mg/dl Magnesium Level 2.4 1.8-2.4 mg/dl Total Bilirubin 0.4 0.2-1 mg/dl Aspartate Amino Transf (AST/SGOT) 20 15-37 U/L Alanine Aminotransferase (ALT/SGPT) 9 12-78 U/L Alkaline Phosphatase 63 45-117 U/L Troponin I < 0.015 0-0.045 ng/ml Pro-B-Type Natriuretic Peptide 180 0-900 pg/ml Total Protein 7.5 6.4-8.2 gm/dl Albumin 3.3 3.4-5.0 gm/dl Globulin 4.2 2.5-4.0 gm/dl Albumin/Globulin Ratio 0.8 0.9-2 Urine Color DK YELLOW Urine Appearance SLIGHTLY CLOUDY CLEAR Urine pH 4.5-7.5 Urine Specific [place] 1.028 1.000-1.030 Urine Protein NEG NEG Urine Glucose (UA) NEG Urine Ketones NEG Urine Occult Blood NEG Urine Nitrite NEG Urine Bilirubin NEG Urine Urobilinogen NEG Urine Leukocyte Esterase NEG Urine RBC 0-4 0-4 /hpf Urine WBC 5-10 0-5 /hpf Urine Epithelial Cells 0-5 0-5 /lpf Urine Bacteria 3+ NEG Urine Yeast BUDDING NONE PRSENT Arterial Blood pH 7.40 7.35-7.45 Arterial Blood Partial Pressure CO2 49 35-46 mmHg Arterial Blood Partial Pressure O2 109 80-95 mm/Hg Arterial Blood HCO3 30 19-24 mmol/L Arterial Blood Oxygen Saturation 97.9 90-95 % Arterial Blood Base Excess 4.1 -9-1.8 mEq/L Arterial Blood Gas Delivery 3.5 L [place] Test POS POS Lactic Acid Level 0.6 0.4-2.0 mmol/L Microbiology Results 05/19/17 Blood Culture, Received Pending 05/19/17 Blood Culture, Received Pending 05/20/17 MRSA DNA Surveillance Screen - Final, Complete Specimen Negative for MRSA by DNA Probe 05/19/17 Urine Culture, Received Pending
--- NOTE | 2017-05-20 13:20 | HISTORY & PHYSICAL EXAMINATION ---
DATE OF ADMISSION: 05/19/2017 PRIMARY CARE PHYSICIAN: Dr. Cisneros. CHIEF COMPLAINT: Hypoxemia, tachycardia as per records. HISTORY OF PRESENT ILLNESS: History obtained from the patient's and records. Limited history from the patient secondary to her limited verbal output secondary to Parkinson's disease. Patient is a [facility] resident. Medical history significant for frontotemporal dementia with parkinsonian features, mood disorder, arthritis, left renal angioma status post surgery, ambulatory dysfunction, hx. aspiration risk. Recent confinement February 2017 for concussion and UTI. Patient had a swallow evaluation at that time. Speech therapy recommended regular diet, thin liquids, aspiration precautions. Patient discharged to [facility]. Has been back to the ER on 2 subsequent occasions for falls. As per records, yesterday patient noted to be in some respiratory distress, tachycardic, tachypneic, SpO2 sats 89 on room air. concerned about aspiration. Patient brought to the Emergency Room. Given cefepime and Levaquin for pneumonia. MEDICAL HISTORY: As above. SURGICAL HISTORY: Cholecystectomy, gynecologic procedures, urologic procedures, and appendectomy. HOME MEDICATIONS: Include Sinemet, citalopram, docusate sodium, and Comtan. ALLERGIES: PENICILLIN AND SULFA. FAMILY HISTORY: Dementia. PERSONAL AND SOCIAL HISTORY: Nonsmoker. No EtOH intake. Homemaker. REVIEW OF SYSTEMS: Could not be obtained. PHYSICAL EXAMINATION: VITAL SIGNS: Blood pressure was noted to be 177/92, later 170/94, pulse rate 100, RR 28, sats 89 on room air, later 90 on 4 L. GENERAL: Noted to be hyposthenic. No respiratory distress. Somewhat lethargic, limited verbal output although acknowledges some questions. SKIN: Normal color. Warm. HEENT: [place] palpebral conjunctivae. No ptosis. Dry buccal mucosa. Nasal cannula in place. NECK: No JVD. Supple. No tenderness. CHEST: Decreased effort. No tenderness. CV: Tachycardic. Palpable LE pulses. ABDOMEN: Soft. NT EXTREMITIES: No edema. No tenderness. No gross deformities. NEUROLOGIC: Bradykinesia. Intention tremors. Limited verbal output. Gait and stance not assessed. LABORATORY DATA: Hemoglobin noted to be 13, hematocrit 40.7, white cell 12.12, and platelets are 282. Sodium 147, potassium 3.9, chloride 111, CO2 of 33, BUN 25, creatinine 0.8, glucose 103. Lactic acid 0.6. Troponin 0.015. ABG: pH 7.4, pCO2 of 49, pO2 of 109, O2 sats 97% on 3.5 L. IMAGING STUDIES: CT chest, no PE. Minimal dependent bilateral consolidation, superior segment, right lobe, sensed to be concern for aspiration. Solid nodule, right upper lobe. We will assess. ASSESSMENT: 1. Acute hypoxemic respiratory failure secondary to HCAP/possible aspiration pneumonia known aspiration risk. 2. sepsis secondary to above. 3. Frontotemporal dementia w/ parkinsonian features progression of disease as per 4. malnutrition (low BMI) PLAN: PCU supplemental O2 CS, Clindamycin. Nebs RTC p.r.n. Solu-Medrol one dose. IVF Aspiration precautions. Follow up swallow eval as per px request. Nutrition consult. Low BMI. DVT prophylaxis, Lovenox subQ. Full code as per , Dr. Omi Burrell. He stresses no heroic measures for patient in the event of progression of Parkinson's disease. He requests updates from providers at [phone]. [facility]
--- NOTE | 2017-05-20 15:50 | Neurology Consultation ---
Neurology Consultation Date of Consultation: May 20, 2017. Attending Physician: Taco Angelo MD Primary Care Physician: Amanda Cisneros M.D. Reason for Consultation: frontotemporal dementia with Parkinson's feature History of Present Illness Source: patient Tamara is a 62 year old female who was seen in the ED for complaints of shortness of breath. She states she recently fell and hit her head but was seen in the hospital for it. She notes gurgling in the back of her throat which is new. She has a history of frontotemporal Dementia and Parkinson's. Her room air is 88%. History limited secondary to dementia. She was found to be hypoxic and hypertensive and was believed to of aspirated. who is a doctor here confirms that patient is at baseline. On admission she had a UTI and yeast infection Currently she is lying in bed and states she was admitted because of a fall. After her last fall she was admitted to [facility] and was transferred from that facility. She does have some wet breath but this was noted on last visit. She denies, CP, SOB, abdominal pain, change in balance or strength. Past Medical/Surgical History Medical Problems: (1) Contusion of multiple sites Status: Acute (2) Fall Status: Acute (3) Fall Status: Acute (4) Hypernatremia Status: Acute (5) Hypoxic Status: Acute (6) Laceration Status: Acute (7) Pneumonia Status: Acute (8) Scalp laceration Status: Acute (9) Scalp laceration Status: Acute (10) UTI (urinary tract infection) Status: Acute Social History Smoking Status: Never smoker Drug Use: none Marital Status: Housing Status: lives with family Allergies Coded Allergies: Sulfa Antibiotics (Verified Allergy, Severe, HIVES, 05/19/17) Penicillins (Verified Allergy, Unknown, RASH, 05/19/17) Current Inpatient Medications Current Inpatient Medications Medications (Trade) Dose Ordered Sig/Paz Route Start Time Stop Time Status Last Admin Dose Admin Ioversol (Optiray 320) 100 ml UD PRN IV 05/19/17 23:00 05/23/17 22:59 Enoxaparin Sodium (Lovenox Inj) 30 mg Q24H SC 05/20/17 06:00 06/19/17 05:59 05/20/17 08:04 30 MG Acetaminophen (Tylenol Tab) 650 mg Q4H PRN PO 05/19/17 23:00 06/18/17 22:59 Lactobacillus Acidophilus (Floranex Tab) 4 tab TIDM PO 05/20/17 07:30 06/19/17 07:59 05/20/17 11:21 4 TAB Carbidopa/Levodopa (Sinemet 25/ 100MG Tab) 1 tab TID@0800,1400,2000 PO 05/20/17 08:00 06/19/17 07:59 05/20/17 13:53 1 TAB Citalopram Hydrobromide (celeXA TAB) 40 mg DAILY PO 05/20/17 09:00 06/19/17 08:59 05/20/17 08:06 40 MG Docusate Sodium (coLACE CAP) 100 mg BID PO 05/20/17 09:00 06/19/17 08:59 05/20/17 08:06 100 MG Entacapone (Comtan) 200 mg 5XDQ4H PO 05/20/17 07:00 06/19/17 06:59 05/20/17 11:21 200 MG Clindamycin Phosphate 600 mg/ Dextrose 54 ml @ 100 mls/hr Q8H IV 05/20/17 00:00 05/27/17 00:00 05/20/17 09:04 100 MLS/HR Clindamycin Phosphate (Consult) 1 ea UD PRN N/A 05/20/17 09:00 06/19/17 08:59 Ipratropium [place] (Atrovent 0.02% 0.5MG/2.5ML Neb) 0.5 mg Q6R INH 05/20/17 03:00 06/19/17 02:59 05/20/17 14:17 0.5 MG Levalbuterol (Xopenex 1.25MG/ 0.5ML Neb) 1.25 mg Q6R INH 05/20/17 03:00 06/19/17 02:59 05/20/17 14:17 1.25 MG Carbidopa/Levodopa (Sinemet Cr 25/ 100MG Tab) 1 tab BID PO 05/20/17 09:00 06/19/17 08:59 05/20/17 09:04 1 TAB Atenolol (Tenormin Tab) 50 mg QAM PO 05/21/17 09:00 12/8/17 08:59 Physical Exam Vital Signs (Past 24 Hrs): Date Time Temp Pulse Resp B/P (MAP) Pulse Ox O2 Delivery O2 Flow Rate FiO2 05/20/17 14:17 86 20 97 Nasal Cannula 2.0 05/20/17 12:00 Nasal Cannula 2.0 05/20/17 11:25 37.1 104 20 169/88 (115) 97 Nasal Cannula 2.0 05/20/17 08:00 Nasal Cannula 3.0 05/20/17 07:45 37.2 123 20 162/84 (110) 91 Room Air 05/20/17 07:22 102 20 96 Nasal Cannula 3.0 05/20/17 04:00 Nasal Cannula 3.0 05/20/17 03:00 36.8 116 26 151/88 (109) 96 Nasal Cannula 3.0 05/20/17 00:51 43 28 95 Nasal Cannula 3.0 05/20/17 00:35 36.8 108 24 148/84 96 Nasal Cannula 3.0 05/19/17 22:24 102 18 149/92 96 Nasal Cannula 3.0 05/19/17 22:23 98 05/19/17 21:24 82 18 122/72 95 Room Air 05/19/17 20:29 103 20 145/82 97 Room Air 05/19/17 18:58 96 22 155/94 95 Nasal Cannula 4.0 05/19/17 18:03 96 05/19/17 18:01 93 Nasal Cannula 4.0 05/19/17 18:01 93 Nasal Cannula 4.0 05/19/17 18:01 93 Nasal Cannula 4.0 05/19/17 18:01 36.8 100 20 167/92 89 Room Air Physical Exam: Constitutional: appearance thin frail Ears, Nose, Mouth and Throat: mucous membranes moist, no injection and skin normal, eyes normal Cardiovascular: normal S-1 and S-2 and regular rate and rhythm Respiratory: clear to auscultation (CTA) and no rales, rhonchi or wheeze Musculoskeletal: no peripheral edema and good distal pulses Skin: no stigmata of neurocutaneous disease noted and normal and intact Eyes: extraocular muscles intact (EOMI) and pupils equal, round and reactive to light (PERRL) NEUROLOGIC EXAMINATION: Mental status: Alert and interactive Oriented to full date and location Oriented to person Speech fluent with no evidence of aphasia, wet breathing with speaking improves with repositioning Cranial Nerves smile eye brow raise symmetric Reflexes: Deep tendon reflexes were symmetrical and graded 2/5. Plantar responses were flexor. Sensory: cool or vibration GT proprioception intact bilaterally Coordination: finger to nose without bi pass, slight reaching tremor R>L resting tremor and cogwheeling Gait/Stance: lying in bed favoring left side but repositioned Motor: Negative for pronator drift of out stretched arms with eyes closed. 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 coppersmith helper biceps triceps 5/5 bilaterally, hip flex plantar flex ext 4+/5 bilaterally Laboratory Results Past 24 Hours: 05/20/17 05:29 Red Blood Count 3.92, Mean Corpuscular Volume 98.2, Mean Corpuscular Hemoglobin 31.1, Mean Corpuscular Hemoglobin Concent 31.7, Mean Platelet Volume 10.3, Neutrophils (%) (Auto) 80.5, Lymphocytes (%) (Auto) 11.5, Monocytes (%) (Auto) 6.3, Eosinophils (%) (Auto) 1.1, Basophils (%) (Auto) 0.3, Neutrophils # (Auto) 5.97, Lymphocytes # (Auto) 0.85, Monocytes # (Auto) 0.47, Eosinophils # (Auto) 0.08, Basophils # (Auto) 0.02 05/20/17 05:29 Test 05/19/17 17:40 05/19/17 19:57 05/19/17 21:03 05/20/17 05:29 Prothrombin Time 9.7 SECONDS (9.0-12.0) Prothromb Time International Ratio 0.9 (0.9-1.1) Activated Partial Thromboplast Time 25.1 SECONDS (21.0-31.0) Partial Thromboplastin Ratio 1.0 Magnesium Level 2.4 mg/dl (1.8-2.4) Total Bilirubin 0.4 mg/dl (0.2-1) Aspartate Amino Transf (AST/SGOT) 20 U/L (15-37) Alanine Aminotransferase (ALT/SGPT) 9 U/L (12-78) Alkaline Phosphatase 63 U/L (45-117) Troponin I < 0.015 ng/ml (0-0.045) Pro-B-Type Natriuretic Peptide 180 pg/ml (0-900) Total Protein 7.5 gm/dl (6.4-8.2) Albumin 3.3 gm/dl (3.4-5.0) Globulin 4.2 gm/dl (2.5-4.0) Albumin/Globulin Ratio 0.8 (0.9-2) Urine Color DK YELLOW Urine Appearance SLIGHTLY CLOUDY (CLEAR) Urine pH (4.5-7.5) Urine Specific [place] 1.028 (1.000-1.030) Urine Protein NEG (NEG) Urine Glucose (UA) (NEG) Urine Ketones (NEG) Urine Occult Blood (NEG) Urine Nitrite (NEG) Urine Bilirubin (NEG) Urine Urobilinogen (NEG) Urine Leukocyte Esterase (NEG) Urine RBC 0-4 /hpf (0-4) Urine WBC 5-10 /hpf (0-5) Urine Epithelial Cells 0-5 /lpf (0-5) Urine Bacteria 3+ (NEG) Urine Yeast BUDDING (NONE PRSENT) Arterial Blood pH 7.40 (7.35-7.45) Arterial Blood Partial Pressure CO2 49 mmHg (35-46) Arterial Blood Partial Pressure O2 109 mm/Hg (80-95) Arterial Blood HCO3 30 mmol/L (19-24) Arterial Blood Oxygen Saturation 97.9 % (90-95) Arterial Blood Base Excess 4.1 mEq/L (-9-1.8) Arterial Blood Gas Delivery 3.5 L [place] Test POS (POS) Lactic Acid Level 0.6 mmol/L (0.4-2.0) White Blood Count 7.41 K/uL (4.8-10.8) Red Blood Count 3.92 M/uL (4.2-5.4) Hemoglobin 12.2 g/dL (12.0-16.0) Hematocrit 38.5 % (37-47) Mean Corpuscular Volume 98.2 fL (80-100) Mean Corpuscular Hemoglobin 31.1 pg (25-34) Mean Corpuscular Hemoglobin Concent 31.7 g/dl (32-36) Platelet Count 220 K/uL (130-400) Mean Platelet Volume 10.3 fL (7.4-10.4) Neutrophils (%) (Auto) 80.5 % Lymphocytes (%) (Auto) 11.5 % Monocytes (%) (Auto) 6.3 % Eosinophils (%) (Auto) 1.1 % Basophils (%) (Auto) 0.3 % Neutrophils # (Auto) 5.97 K/uL (1.4-6.5) Lymphocytes # (Auto) 0.85 K/uL (1.2-3.4) Monocytes # (Auto) 0.47 K/uL (0.11-0.59) Eosinophils # (Auto) 0.08 K/uL (0-0.5) Basophils # (Auto) 0.02 K/uL (0-0.2) RDW Standard Deviation 48.9 fL (36.4-46.3) RDW Coefficient of Variation 13.7 % (11.5-14.5) Immature Granulocyte % (Auto) 0.3 % Immature Granulocyte # (Auto) 0.02 K/uL (0.00-0.02) Anion Gap 3.0 mmol/L (3-11) Est Creatinine Clear Calc Drug Dose 70.0 ml/min Estimated GFR () 109.3 Estimated GFR (Non- 94.3 BUN/Creatinine Ratio 29.7 (10-20) Calcium Level 9.2 mg/dl (8.5-10.1) Date/Time Source Procedure Growth Status 05/20/17 00:40 Nasal MRSA DNA Surveillance Screen - Final Specimen Negative for MRSA by DNA Probe Complete Imaging CT chest- . Ovoid 9 mm focal masslike region in the right breast. , no central pulmonary embolus. Minimal dependent bilateral consolidation with more nodular consolidation in the superior segment of the right lower lobe. Combined with extensive debris in the airway, this is concerning for aspiration. 3 to 4 mm solid nodule in the right upper lobe, poorly assessed due to motion artifact. Follow-up per Nikole Society 2017 Impression 62 year old fronto temporal dementia with Parkinson features progressive Plan 1. progressive dementia and parkinson's disease 2. continue sinemet 25/100mg ER BID and sinemet 25/100 mg TID if blood pressure tolerates may need to decrease if falls are occurring after standing 3. Comtan 200 mg 5 x day as previous 4. PT/OT/speech for discharge needs 5. needs better positioning to avoid collection of fluid in back of throat especially if cleared for eating 6. fall precautions 7. orthostatic blood pressures ordered I have seen and discussed above patient with Dr Dalila Spivey, neurology Hx reviewed, pt xferred bc of fever sob. Pt has had several falls, denies lightheadedness.. Exam severe blepharospasm, hypophonia, pressured speech. mild rest tremor, modest genl bradykinesia without rigidity. Mild dyskinesias RLE. Imp Parkinson's variant. Rec checking orthstatics to exclude that as etiology of fall. Consider repeat swallow to make dietary rec given pneumonia. AJIT Spivey MD
[2017-05-21] VITALS (16 sets, daily range): BP systolic 138–175; BP diastolic 81–90; PULSE 70–87; TEMP 36.4–37.2; O2SAT 88–98
[2017-05-21] MEDS: LEVALBUTEROL 1.25MG/0.5ML NEB INH SCH ×5 (00:28→19:40)
[2017-05-21] MEDS: IPRATROPIUM BROMIDE NEB SOLN 0.02% 2.5 ML VIAL INH SCH ×5 (00:28→19:40)
[2017-05-21] MEDS: CLINDAMYCIN IV 600 MG in DEXTROSE 5% 50ML 50 ML IV SCH ×3 (00:51→18:21)
[2017-05-21] MEDS ORDERED: NURSING VERBAL MED ORDER ONE (05:30)
[2017-05-21] MEDS ORDERED: FUROSEMIDE 40 MG/4 ML VIAL ONE (05:50)
[2017-05-21] MEDS ORDERED: FUROSEMIDE INJ 20 MG in SYRINGE 0 ML IV SCH (06:00)
[2017-05-21] MEDS: ENOXAPARIN 30 MG/0.3 ML SYR SC SCH (06:28)
[2017-05-21] MEDS: ENTACAPONE 200 MG TAB PO SCH ×5 (07:00→23:29)
--- NOTE | 2017-05-21 07:12 | DIAGNOSTIC IMAGING REPORT ---
CHEST ONE VIEW PORTABLE HISTORY: Short of breath. COMPARISON: Chest 05/19/2017. FINDINGS: The heart is stable in size. No pneumothorax. No pleural effusions. Progressive density within the left lung base no evidence for pulmonary edema. Improved aeration within the right lung base. IMPRESSION: 1. Progressive left lower lobe airspace opacity. This likely represents a pneumonia. 2. Improved aeration within the right lung base. Electronically signed by: Nixon Galindo M.D. 05/21/2017 7:10 AM Dictated Date/Time: 05/21/2017 7:09 AM
[2017-05-21 07:23] LABS: MEAN CELL VOLUME 97.2 fL (80-100); MEAN CORPUSCULAR HEMOGLOBIN 30.6 pg (25-34); MEAN CORPUSCULAR HGB CONC 31.5 g/dl (32-36); PLATELET COUNT 249 K/uL (130-400); RED BLOOD COUNT 4.22 M/uL (4.2-5.4); WHITE BLOOD COUNT 9.36 K/uL (4.8-10.8)
[2017-05-21] MEDS: LACTOBACILLUS ACIDOPHILUS (FLORANEX) TAB PO SCH ×3 (07:30→17:26)
[2017-05-21] MEDS: CARBIDOPA/LEVODOPA 25/100MG TAB PO SCH ×3 (08:00→20:01)
[2017-05-21 08:16] LABS: CALCIUM 9.3 mg/dl (8.5-10.1); CREATININE 0.61 mg/dl (0.60-1.20); POTASSIUM 3.3 mmol/L (3.5-5.1)
[2017-05-21] MEDS: CITALOPRAM 40 MG TAB PO SCH (09:00)
[2017-05-21] MEDS: DOCUSATE SODIUM 100 MG CAP PO SCH ×2 (09:00→19:57)
[2017-05-21] MEDS: CARBIDOPA/LEVODOPA 25/100MG EXT REL TAB PO SCH ×2 (09:00→20:01)
--- NOTE | 2017-05-21 11:37 | Progress Note ---
Internal Med Progress Note Date of Service: May 21, 2017. Provider Documentation: SUBJECTIVE: Seen and examined at bedside Has aspirated pills overnight Planned to video swallow today Hypoxic this morning Denies any chest pain, SOB, cough, dizziness, abd pain Repeat CXR: LLL opacity OBJECTIVE: Vital Signs-as noted below Physical Exam: General Appearance:Thin, Frail, no apparent distress Head: normocephalic, Atraumatic Eyes: normal inspection, EOMI, PERRL Neck: supple, Trachea midline Respiratory/Chest: Normal breath sounds, CTA Cardiovascular: S1, S2, No murmur, +Tachycardia Abdomen/GI:Soft, Non tender, Bowel sounds present Extremities/Musculoskelatal:normal inspection, no edema Neurologic/Psych:grossly no focal neurological deficits Skin: normal color, warm Lab data as noted below. ASSESSMENT & PLAN: Possible Aspiration Pneumonia: Hypoxia Presented with SOB, hypoxia, Leukocytosis CTA: no central pulmonary embolus, Minimal dependent bilateral consolidation with more nodular consolidation in the superior segment of the right lower lobe. Combined with extensive debris in the airway, this is concerning for aspiration. Leukocytosis normalized On Clindamycin>>> Will broaden to Ceftriaxone and flagyl Day #1 Video swallow eval today Aspiration precautions Blood/Urine Culture: No growth Negative MRSA screen May need BiPAP but high risk for aspiration Oxygen support Pulmonology consulted HTN/Sinus Tachycardia: Continue Atenolol Monitor Hypokalemia: Will replace and monitor check Mg levels H/O frontotemporal dementia with parkinsonian features Continue home meds Appreciate Neurology Input Mood disorder: Continue home meds stable RUL Pulmonary Nodule: Follow up as outpatient DVT Px: SQ Lovenox Code Status Full code. Disposition: To be determined Poor prognosis PROCEDURES: CTA: 1. Allowing for motion artifact, no central pulmonary embolus. 2. Minimal dependent bilateral consolidation with more nodular consolidation in the superior segment of the right lower lobe. Combined with extensive debris in the airway, this is concerning for aspiration. 3. 3 to 4 mm solid nodule in the right upper lobe, poorly assessed due to motion artifact. Follow-up per Nikole Society 2017 recommendations below Vital Signs: Date Time Temp Pulse Resp B/P (MAP) Pulse Ox O2 Delivery O2 Flow Rate FiO2 05/21/17 08:00 92 Oxymask 4.0 05/21/17 07:42 37.0 87 26 163/84 (110) 88 Oxymask 05/21/17 07:14 71 16 94 Mask 4.0 05/21/17 04:00 Nasal Cannula 05/21/17 03:54 37.1 76 24 162/81 (108) 91 Oxymask 5.0 05/21/17 03:10 75 16 93 Mask 5.0 05/21/17 00:45 36.6 70 28 164/83 (110) 93 Oxymask 15.0 05/21/17 00:28 74 28 95 Mask 10.0 05/21/17 00:00 Nasal Cannula 05/20/17 20:00 Nasal Cannula 2.0 05/20/17 19:43 37.2 66 22 104/62 (76) 96 Nasal Cannula 2.0 05/20/17 19:13 78 20 96 Nasal Cannula 2.0 05/20/17 16:00 Nasal Cannula 2.0 05/20/17 15:50 37.0 72 20 129/77 (94) 96 Room Air 05/20/17 14:17 86 20 97 Nasal Cannula 2.0 05/20/17 12:00 Nasal Cannula 2.0 Lab Results: Results Past 24 Hours Test 05/21/17 00:16 05/21/17 07:01 Range/Units Bedside Glucose 118 70-90 mg/dl White Blood Count 9.36 4.8-10.8 K/uL Red Blood Count 4.22 4.2-5.4 M/uL Hemoglobin 12.9 12.0-16.0 g/dL Hematocrit 41.0 37-47 % Mean Corpuscular Volume 97.2 80-100 fL Mean Corpuscular Hemoglobin 30.6 25-34 pg Mean Corpuscular Hemoglobin Concent 31.5 32-36 g/dl RDW Standard Deviation 47.9 36.4-46.3 fL RDW Coefficient of Variation 13.5 11.5-14.5 % Platelet Count 249 130-400 K/uL Mean Platelet Volume 10.0 7.4-10.4 fL Sodium Level 144 136-145 mmol/L Potassium Level 3.3 3.5-5.1 mmol/L Chloride Level 105 98-107 mmol/L Carbon Dioxide Level 34 21-32 mmol/L Anion Gap 5.0 3-11 mmol/L Blood Urea Nitrogen 14 7-18 mg/dl Creatinine 0.61 0.60-1.20 mg/dl Est Creatinine Clear Calc Drug Dose 72.2 ml/min Estimated GFR () 111.0 Estimated GFR (Non- 95.8 BUN/Creatinine Ratio 23.0 10-20 Random Glucose 119 70-99 mg/dl Calcium Level 9.3 8.5-10.1 mg/dl
[2017-05-21] MEDS ORDERED: METRONIDAZOLE 500MG / NSS IV SCH (12:00)
[2017-05-21] MEDS: CEFTRIAXONE SOD INJ 1000 MG in DEXTROSE 5% 50ML IV SCH (12:52)
[2017-05-21] MEDS: POTASSIUM CHLR 10 MEQ / WTR 10 MEQ in PREMIXED WATER 100 ML IV SCH ×4 (12:53→17:23)
--- NOTE | 2017-05-21 13:14 | DIAGNOSTIC IMAGING REPORT ---
VIDEO SWALLOW Acute shortness of breath with concern for aspiration TECHNIQUE: Video fluoroscopic evaluation of swallowing was performed in the AP and lateral projections by the speech pathology staff. The patient is fed nectar-thick and thin liquid barium, a barium coated wafer, and barium pudding. FLUOROSCOPY TIME: 2.2 minutes. COMPARISON STUDY: Chest radiograph 05/21/2017, CTA chest 05/19/2017. FINDINGS: No definite penetration or aspiration identified. Residue collection within the vallecula is noted with multiple consistencies. Decreased epiglottic inversion also noted at several intervals throughout the study. Decreased transit within the oral pharynx noted. IMPRESSION: 1. No aspiration identified. 2. Please see the speech pathologist report for detailed findings and recommendations. Electronically signed by: Dusty Thomson M.D. 05/21/2017 1:12 PM Dictated Date/Time: 05/21/2017 1:09 PM
--- NOTE | 2017-05-21 14:38 | Pulmonary Consultation ---
History General Date of Service: May 21, 2017. Stated Complaint: Respiratory Failure HPI The patient is a 62 year old female who presents to [facility] with complaints of Respiratory Failure. The patient's primary care provider is Amanda Cisneros M.D.. Patient unable to give me full history. Therefore history taken from medical records. Ms. Burrell is a 62-year-old female resident of [facility] with frontotemporal dementia with parkinsonian features, mood disorder, arthritis, left renal angioma status post surgery, and ambulatory dysfunction who presented to ER after patient was noted to be tachycardic, tachypneic, with measured pulse oximetry around 89% on room air [facility] jail. 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 Vital signs in the ER showed a temperature 36.8, pulse 100, respiratory rate 20 , blood pressure 167/92, pulse oximetry 89% on room air. She was subsequently placed on 4 L nasal cannula with increase of SaO2 to 95%. ABG: pH 7.4, pCO2 of 49, pO2 of 109, O2 sats 97% on 3.5 L. Laboratory data on admission significant for a white blood cell count of 12, hemoglobin 13, platelet count 282. Chemistry showed a sodium of 147, potassium 4, chloride 113, BUN of 19, creatinine 0.64, random glucose 112, calcium 9.2. BNP 180, troponin less than 0.015 x 2. Chest x-ray from 05/19/2017 shows poorly defined parenchymal infiltrate in the right to a lesser extent on the left base, likely atelectasis. CT chest was done to rule out pulmonary embolism which was negative. Minimal dependent bilateral consolidation with more nodular consolidation in superior segment in the right lower lobe. There was debris in the airways concerning for aspiration. There was a 3-4 mm solid nodule in the right upper lobe. Lastly, always 9 mm focal masslike lesion in the right breast seen. She was given cefepime and Levaquin and admitted for hypoxia secondary to aspiration pneumonia. This morning patient was noted by nursing staff to be more short of breath saturating about 85% on 4 L oxygen mask. Increased about 10 L to maintain an oxygen saturation of 95%. She was also a dose of 20 mg Lasix IV and Cummings catheter placed for diuresis. Chest x-ray from this morning 05/21/2017 shows progressive left lower lobe airspace opacity suggestive of pneumonia improved aeration in the right lung base. Video swallow done on 05/21/2017 shows no aspiration, there was residual collection within the vallecula with multiple inconsistencies. There was decreased transit within the oropharynx. At the time of my evaluation, patient denies any chest pain, cough, shortness of breath. Historian: patient, other (EMR) Review of Systems Constitutional: reports: as stated in HPI Eyes: reports: as stated in HPI ENT: reports: as stated in HPI Cardiovascular: reports: as stated in HPI Respiratory: reports: as stated in HPI Gastrointestinal: reports: as stated in HPI Genitourinary - Female: reports: as stated in HPI Musculoskeletal: reports: as stated in HPI Integumentary: reports: as stated in HPI Neurologic: reports: as stated in HPI Psychiatric: reports: as stated in HPI Endocrine: as stated in HPI Allergic / Immunologic: as stated in HPI All Other Symptoms All Other Systems: Reviewed and Negative Past Medical History Past Medical History: Frontotemporal dementia with parkinsonian features Me disorder Arthritis Left renal angioma status post surgery Ambulatory dysfunction Frequent falls Past Surgical History: Cholecystectomy Manager Home Improvement/Urological procedures Appendectomy Family History No pertinent family history Dementia Social History She denies any alcohol, tobacco use or illicit drug use. 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 Hx Tobacco Use In Past Year?: No Smoking Status: Never Smoker Marital status: History of MDRO History of MDRO: No Allergies Coded Allergies: Penicillins (Verified Allergy, Unknown, RASH, 05/19/17) Sulfa Antibiotics (Verified Allergy, Unknown, HIVES, 05/21/17) Current Medications Reported Home Medications Medications Dose Route/Sig Max Daily Dose Days Date Category Dose Instructions Carbidopa/Levodopa Er (Carbidopa-Levodopa) 1 Tab Tab 25-100 Mg PO BID 05/19/17 Reported 25-100MG Docusate Sodium 100 Mg Cap 100 Mg PO BID 04/09/17 Reported Comtan (Entacapone) 200 Mg Tab 200 Mg PO 5XD 02/12/17 Reported Sinemet 25MG/100MG (Carbidopa/Levodopa) Tab 1 Tab PO TID 02/12/17 Reported Citalopram Hydrobromide (Citalopram) 40 Mg Tab 40 Mg PO DAILY 02/12/17 Reported Physical Physical Exam Vital Signs: Date Time Temp Pulse Resp B/P (MAP) Pulse Ox O2 Delivery O2 Flow Rate FiO2 05/21/17 12:34 36.5 82 20 147/84 (105) 92 Oxymask 5.0 05/21/17 08:00 92 Oxymask 4.0 05/21/17 07:42 37.0 87 26 163/84 (110) 88 Oxymask 05/21/17 07:14 71 16 94 Mask 4.0 05/21/17 04:00 Nasal Cannula 05/21/17 03:54 37.1 76 24 162/81 (108) 91 Oxymask 5.0 05/21/17 03:10 75 16 93 Mask 5.0 05/21/17 00:45 36.6 70 28 164/83 (110) 93 Oxymask 15.0 05/21/17 00:28 74 28 95 Mask 10.0 05/21/17 00:00 Nasal Cannula 05/20/17 20:00 Nasal Cannula 2.0 05/20/17 19:43 37.2 66 22 104/62 (76) 96 Nasal Cannula 2.0 05/20/17 19:13 78 20 96 Nasal Cannula 2.0 05/20/17 16:00 Nasal Cannula 2.0 05/20/17 15:50 37.0 72 20 129/77 (94) 96 Room Air 05/20/17 14:17 86 20 97 Nasal Cannula 2.0 General Appearance: mild distress, thin, cachetic Head: other (laceration of the scalp) Eyes: PERRLA, NO DISCHARGE, EOMI, SCLERAE NORMAL ENT: NORMAL MOUTH EXAM Neck: limited range of motion, other (gurgling sounds in all pharynx) Respiratory: other (tachypnea, with shallow breathing.) Cardiovasular: REGULAR RATE/RHYTHM, NORMAL S1S2 Abdomen: NON TENDER, NORMAL BOWEL SOUNDS, NO REBOUND Genitourinary - Female: EXTERNAL GENITALIA NORMAL Upper Extremities: NO EDEMA, NO DEFORMITY, NORMAL ROM, other (tremulous, cogwheel rigidity) Lower Extremities: NO EDEMA, NO DEFORMITY, NORMAL ROM Neuro: ALERT, ORIENTED x 3, speech abnormal Psychiatric: flat affect Diagnostics Labs Results Past 24 Hours Test 05/21/17 00:16 05/21/17 07:01 Range/Units Bedside Glucose 118 70-90 mg/dl White Blood Count 9.36 4.8-10.8 K/uL Red Blood Count 4.22 4.2-5.4 M/uL Hemoglobin 12.9 12.0-16.0 g/dL Hematocrit 41.0 37-47 % Mean Corpuscular Volume 97.2 80-100 fL Mean Corpuscular Hemoglobin 30.6 25-34 pg Mean Corpuscular Hemoglobin Concent 31.5 32-36 g/dl RDW Standard Deviation 47.9 36.4-46.3 fL RDW Coefficient of Variation 13.5 11.5-14.5 % Platelet Count 249 130-400 K/uL Mean Platelet Volume 10.0 7.4-10.4 fL Sodium Level 144 136-145 mmol/L Potassium Level 3.3 3.5-5.1 mmol/L Chloride Level 105 98-107 mmol/L Carbon Dioxide Level 34 21-32 mmol/L Anion Gap 5.0 3-11 mmol/L Blood Urea Nitrogen 14 7-18 mg/dl Creatinine 0.61 0.60-1.20 mg/dl Est Creatinine Clear Calc Drug Dose 72.2 ml/min Estimated GFR () 111.0 Estimated GFR (Non- 95.8 BUN/Creatinine Ratio 23.0 10-20 Random Glucose 119 70-99 mg/dl Calcium Level 9.3 8.5-10.1 mg/dl Diagnostic Radiology (CHEST FOR PE) ANGIO WITH 05/19/2017 CLINICAL HISTORY: 62 years-old Female presenting with shortness of breath, clinical concern for pulmonary embolus. TECHNIQUE: Multidetector CT angiography of the chest was performed after administration of intravenous contrast. 3-D volumetric and/or maximum intensity projection (MIP) images were subsequently reconstructed for review. IV contrast: 89 mL of Optiray 320. A dose lowering technique was used consistent with the principles of ALARA (as low as reasonably achievable). COMPARISON: Chest x-ray performed earlier the same day. CT DOSE (mGy.cm): The estimated cumulative dose is 208.06 mGy.cm. FINDINGS: Trade Show Specialist topogram: Hyperinflation. Pulmonary vasculature: The study is suboptimal secondary to respiratory motion artifact somewhat limiting the gastric sensitivity of the exam for pulmonary embolus. Within this limitation, no central filling defect within the pulmonary arterial tree. Main pulmonary artery is not enlarged. No flattening of the interventricular septum. No intracardiac intracardiac filling defect. No reflux of contrast into the hepatic veins. Remaining chest: On soft tissue windows, normal thyroid and thoracic inlet. Ovoid 9 mm focal masslike region in the right breast (series 4 image 126). However, similar additional foci noted in the breasts bilaterally on a background of fibroglandular tissue. No axillary, supraclavicular, hilar, or mediastinal lymphadenopathy. Normal aorta. Normal heart size. No pericardial or pleural effusion. Upper abdomen notable for cholecystectomy clips. On lung windows, minimal dependent consolidation bilaterally which is more nodular and less peripheral and superior segment of the right lower lobe evaluation limited by respiratory motion. 3-4 mm solid nodule in the right upper lobe (series 4 image 208), poorly assessed due to motion artifact. Debris noted in the hypopharynx, larynx, and trachea. On bone windows, normal osseous structures. IMPRESSION: 1. Allowing for motion artifact, no central pulmonary embolus. 2. Minimal dependent bilateral consolidation with more nodular consolidation in the superior segment of the right lower lobe. Combined with extensive debris in the airway, this is concerning for aspiration. 3. 3 to 4 mm solid nodule in the right upper lobe, poorly assessed due to motion artifact. Follow-up per Nikole Society 2017 recommendations below. CHEST ONE VIEW PORTABLE 05/20/2017 HISTORY: Short of breath. COMPARISON: Chest 05/19/2017. FINDINGS: The heart is stable in size. No pneumothorax. No pleural effusions. Progressive density within the left lung base no evidence for pulmonary edema. Improved aeration within the right lung base. IMPRESSION: 1. Progressive left lower lobe airspace opacity. This likely represents a pneumonia. 2. Improved aeration within the right lung base. EKG EKG 05/21/2017 Normal sinus rhythm at 71 bpm. Impression Assessment and Plan Acute hypoxemic respiratory failure secondary to HCAP/possible aspiration Progressive Parkinson's disease Bilateral pneumonia Patient has hypoxia this may be secondary to both atelectasis versus pneumonia. CT chest shows bilateral pneumonia with debris within the mainstem bronchi. This is most likely secondary to aspiration. She appears to be pooling food and saliva and her mouth. Not tolerating oral medications at this time. She has rhonchorous breath sounds and quite tachypnea today. Recommendations Continue with pulse oximetry to maintain SaO2 above 92%. She is quite tachypneic with shallow breathing. She may benefit from a trial of high flow nasal cannula versus BiPAP. She is currently on clindamycin for empiric coverage of aspiration pneumonia. Discussed broadening antibiotics to cover for HCAP. Continue with nebulizer every 4-6 hours when necessary. Recommend speech and swallow evaluation. Incentive spirometry, flutter valve for aggressive pulmonary toilet. Patient quite tremulous, appears to have muscle wasting and failing to thrive. Goals of care should he discuss with . Will consider bronchoscopy if her respiratory status does not improve. Discussed with Dr. Angelo, hospitalist covering case. Continue with DVT ppx. I appreciate the consult.
--- NOTE | 2017-05-21 16:47 | Neurology Progress Notes ---
Neurology Progress Note Date of Service May 21, 2017. Jeferson Mcdonald is a 62 year old female who was seen in the ED for complaints of shortness of breath. She states she recently fell and hit her head but was seen in the hospital for it. She notes gurgling in the back of her throat which is new. She has a history of frontotemporal Dementia and Parkinson's. Her room air is 88%. History limited secondary to dementia. She was found to be hypoxic and hypertensive and was believed to of aspirated. who is a doctor here confirms that patient is at baseline. On admission she had a UTI and yeast infection Currently she is lying in bed and is sleeping. After her last fall she was admitted to [facility] and was transferred from that facility. She denies, CP, SOB, abdominal pain, change in balance or strength. Objective Date Time Temp Pulse Resp B/P (MAP) Pulse Ox O2 Delivery O2 Flow Rate FiO2 05/21/17 14:11 86 16 94 Mask 5.0 05/21/17 12:34 36.5 82 20 147/84 (105) 92 Oxymask 5.0 05/21/17 12:00 Oxymask 4.0 05/21/17 08:00 92 Oxymask 4.0 05/21/17 07:42 37.0 87 26 163/84 (110) 88 Oxymask 05/21/17 07:14 71 16 94 Mask 4.0 05/21/17 04:00 Nasal Cannula 05/21/17 03:54 37.1 76 24 162/81 (108) 91 Oxymask 5.0 05/21/17 03:10 75 16 93 Mask 5.0 05/21/17 00:45 36.6 70 28 164/83 (110) 93 Oxymask 15.0 05/21/17 00:28 74 28 95 Mask 10.0 05/21/17 00:00 Nasal Cannula 05/20/17 20:00 Nasal Cannula 2.0 05/20/17 19:43 37.2 66 22 104/62 (76) 96 Nasal Cannula 2.0 05/20/17 19:13 78 20 96 Nasal Cannula 2.0 Last 24 Hours Test 05/21/17 00:16 05/21/17 07:01 Bedside Glucose 118 mg/dl White Blood Count 9.36 K/uL Red Blood Count 4.22 M/uL Hemoglobin 12.9 g/dL Hematocrit 41.0 % Mean Corpuscular Volume 97.2 fL Mean Corpuscular Hemoglobin 30.6 pg Mean Corpuscular Hemoglobin Concent 31.5 g/dl RDW Standard Deviation 47.9 fL RDW Coefficient of Variation 13.5 % Platelet Count 249 K/uL Mean Platelet Volume 10.0 fL Sodium Level 144 mmol/L Potassium Level 3.3 mmol/L Chloride Level 105 mmol/L Carbon Dioxide Level 34 mmol/L Anion Gap 5.0 mmol/L Blood Urea Nitrogen 14 mg/dl Creatinine 0.61 mg/dl Est Creatinine Clear Calc Drug Dose 72.2 ml/min Estimated GFR () 111.0 Estimated GFR (Non- 95.8 BUN/Creatinine Ratio 23.0 Random Glucose 119 mg/dl Calcium Level 9.3 mg/dl Imaging: swallowing study-No definite penetration or aspiration identified. Residue collection within the vallecula is noted with multiple consistencies. Decreased epiglottic inversion also noted at several intervals throughout the study. Decreased transit within the oral pharynx noted. Exam: Gen: sleeping voice and noxious stimuli to arouse opens eye briefly Lungs course breath sound CV RRR moves all ext spontaneously Current Inpatient Medications Medications (Trade) Dose Ordered Sig/Paz Route Start Time Stop Time Status Last Admin Dose Admin Ioversol (Optiray 320) 100 ml UD PRN IV 05/19/17 23:00 05/23/17 22:59 Enoxaparin Sodium (Lovenox Inj) 30 mg Q24H SC 05/20/17 06:00 06/19/17 05:59 05/21/17 06:28 30 MG Acetaminophen (Tylenol Tab) 650 mg Q4H PRN PO 05/19/17 23:00 06/18/17 22:59 Lactobacillus Acidophilus (Floranex Tab) 4 tab TIDM PO 05/20/17 07:30 06/19/17 07:59 05/20/17 17:29 4 TAB Carbidopa/Levodopa (Sinemet 25/ 100MG Tab) 1 tab TID@0800,1400,2000 PO 05/20/17 08:00 06/19/17 07:59 05/20/17 19:42 1 TAB Citalopram Hydrobromide (celeXA TAB) 40 mg DAILY PO 05/20/17 09:00 06/19/17 08:59 05/20/17 08:06 40 MG Docusate Sodium (coLACE CAP) 100 mg BID PO 05/20/17 09:00 06/19/17 08:59 05/20/17 19:41 100 MG Entacapone (Comtan) 200 mg 5XDQ4H PO 05/20/17 07:00 06/19/17 06:59 05/20/17 23:59 200 MG Ipratropium Calvin (Atrovent 0.02% 0.5MG/2.5ML Neb) 0.5 mg Q6R INH 05/20/17 03:00 06/19/17 02:59 05/21/17 14:11 0.5 MG Levalbuterol (Xopenex 1.25MG/ 0.5ML Neb) 1.25 mg Q6R INH 05/20/17 03:00 06/19/17 02:59 05/21/17 14:11 1.25 MG Carbidopa/Levodopa (Sinemet Cr 25/ 100MG Tab) 1 tab BID PO 05/20/17 09:00 06/19/17 08:59 05/20/17 19:42 1 TAB Atenolol (Tenormin Tab) 50 mg QAM PO 05/21/17 09:00 06/20/17 08:59 Ceftriaxone Sodium 1 gm/ Dextrose 50 ml @ 100 mls/hr Q24H IV 05/21/17 11:30 05/28/17 11:29 05/21/17 12:52 100 MLS/HR Impression 62 year old fronto temporal dementia with Parkinson features progressive Plan 1. progressive dementia and parkinson's disease 2. continue sinemet 25/100mg ER BID and sinemet 25/100 mg TID if blood pressure tolerates may need to decrease if falls are occurring after standing 3. Comtan 200 mg 5 x day as previous 4. PT/OT/speech for discharge needs 5. needs better positioning to avoid collection of fluid in back of throat especially if cleared for eating 6. fall precautions 7. orthostatic blood pressures ordered have no been done I have seen and discussed above patient with Dr Dalila Spivey, neurology Pt seen today, sleepy. Diffuse rigidity. When ranging L knee, some crepitation without pain, or deformity. Imp Parkinson's variant, no change in meds, check orthostatics. I informed nurse re observation L knee. Nursing will monitor for pain or swelling, AJIT Spivey MD
[2017-05-22] VITALS (13 sets, daily range): BP systolic 126–160; BP diastolic 70–83; PULSE 66–110; TEMP 35.9–37.5; O2SAT 92–98
[2017-05-22] MEDS: LEVALBUTEROL 1.25MG/0.5ML NEB INH SCH ×4 (01:30→19:21)
[2017-05-22] MEDS: IPRATROPIUM BROMIDE NEB SOLN 0.02% 2.5 ML VIAL INH SCH ×4 (01:30→19:21)
[2017-05-22] MEDS: CLINDAMYCIN IV 600 MG in DEXTROSE 5% 50ML 50 ML IV SCH ×3 (02:02→18:17)
[2017-05-22] MEDS: ENTACAPONE 200 MG TAB PO SCH ×5 (06:11→20:36)
[2017-05-22] MEDS: ENOXAPARIN 30 MG/0.3 ML SYR SC SCH (06:12)
[2017-05-22 07:02] LABS: HEMATOCRIT 42.3 % (37-47); MEAN CORPUSCULAR HEMOGLOBIN 30.5 pg (25-34); MEAN CORPUSCULAR HGB CONC 31.4 g/dl (32-36); PLATELET COUNT 275 K/uL (130-400); RED BLOOD COUNT 4.36 M/uL (4.2-5.4); WHITE BLOOD COUNT 9.69 K/uL (4.8-10.8)
[2017-05-22] MEDS: LACTOBACILLUS ACIDOPHILUS (FLORANEX) TAB PO SCH ×3 (07:30→15:56)
--- NOTE | 2017-05-22 07:41 | DIAGNOSTIC IMAGING REPORT ---
CHEST ONE VIEW PORTABLE HISTORY: Short of breath. COMPARISON: Chest 05/21/2017. FINDINGS: Left-sided rib fractures appear old. Linear densities within the left lung is likely due to overlying artifact. No definite pneumothorax. No pleural effusions. Left basilar linear densities consistent with subsegmental atelectasis. No new focal lung consolidations to suggest pneumonia. No evidence for pulmonary edema. The heart is normal in size. IMPRESSION: Improved aeration within the left lower lobe with a few linear densities remaining suggesting subsegmental atelectasis. The right lung remains clear. Electronically signed by: Nixon Galindo M.D. 05/22/2017 7:39 AM Dictated Date/Time: 05/22/2017 7:35 AM
[2017-05-22 07:44] LABS: BUN/CREATININE RATIO 29.7 (10-20); CALCIUM 9.5 mg/dl (8.5-10.1); CREATININE 0.62 mg/dl (0.60-1.20); MAGNESIUM 2.2 mg/dl (1.8-2.4); POTASSIUM 4.1 mmol/L (3.5-5.1)
[2017-05-22] MEDS: DOCUSATE SODIUM 100 MG CAP PO SCH ×2 (07:57→20:36)
[2017-05-22] MEDS: CARBIDOPA/LEVODOPA 25/100MG TAB PO SCH ×3 (08:00→20:36)
[2017-05-22] MEDS: CITALOPRAM 40 MG TAB PO SCH (08:00)
[2017-05-22] MEDS: CARBIDOPA/LEVODOPA 25/100MG EXT REL TAB PO SCH ×2 (08:01→20:36)
--- NOTE | 2017-05-22 09:52 | Progress Note ---
Internal Med Progress Note Date of Service: May 22, 2017. Provider Documentation: SUBJECTIVE: Seen and examined at bedside Clinically no significant change from yesterday Poor historian Currently saturating well Denies any chest pain, SOB, cough, dizziness, abd pain Follows simple commands OBJECTIVE: Vital Signs-as noted below Physical Exam: General Appearance:Thin, Frail, no apparent distress Head: normocephalic, Atraumatic Eyes: normal inspection, EOMI, PERRL Neck: supple, Trachea midline Respiratory/Chest: Coarse breath sounds Cardiovascular: S1, S2, No murmur Abdomen/GI:Soft, Non tender, Bowel sounds present Extremities/Musculoskelatal:normal inspection, no edema Neurologic/Psych:grossly no focal neurological deficits Skin: normal color, warm Lab data as noted below. ASSESSMENT & PLAN: Acute hypoxemic respiratory failure secondary to HCAP Possible aspiration Presented with SOB, hypoxia, Leukocytosis CTA: no central pulmonary embolus, Minimal dependent bilateral consolidation with more nodular consolidation in the superior segment of the right lower lobe. Combined with extensive debris in the airway, this is concerning for aspiration. Leukocytosis normalized On Clindamycin>>> added Ceftriaxone Video swallow eval: No aspiration Aspiration precautions Speech recommendations: 1. Mechanical soft diet with thin liquids - NO straws 2. Meds crushed and in carrier (pudding/applesauce) 3. Pt. MUST feed self 4. Full aspiration precautions 5. Supervision with all intake and cue for safe swallowing strategies (small bites, small sips, slow rate) Blood/Urine Culture: No growth Negative MRSA screen May need BiPAP but high risk for aspiration Oxygen support Appreciate Pulmonology Incentive Spirometry, flutter valve May need Bronchoscopy if respiratory status deteriorates Goals of Care Addressed with : No Trach, Peg tube, DNR Ok with temporary Intubation HTN/Sinus Tachycardia: Continue Atenolol Monitor Hypokalemia: Resolved monitor Mg levels: normal H/O frontotemporal dementia with parkinsonian features Continue home meds Appreciate Neurology Input Mood disorder: Continue home meds RUL Pulmonary Nodule: Follow up as outpatient DVT Px: SQ Lovenox Code Status Full code. Disposition: To be determined Poor prognosis PROCEDURES: Video Swallow: 1. No aspiration identified. 2. Please see the speech pathologist report for detailed findings and recommendations. CTA: 1. Allowing for motion artifact, no central pulmonary embolus. 2. Minimal dependent bilateral consolidation with more nodular consolidation in the superior segment of the right lower lobe. Combined with extensive debris in the airway, this is concerning for aspiration. 3. 3 to 4 mm solid nodule in the right upper lobe, poorly assessed due to motion artifact. Follow-up per [employer] 2017 recommendations below Vital Signs: Date Time Temp Pulse Resp B/P (MAP) Pulse Ox O2 Delivery O2 Flow Rate FiO2 05/22/17 10:28 35.9 72 32 148/81 (103) 97 Oxymask 5.0 05/22/17 07:34 37.2 110 32 151/76 (101) 95 Oxymask 5.0 05/22/17 07:13 108 20 98 Non-Rebreather 15.0 05/22/17 04:32 36.9 88 19 147/83 (104) 98 Non-Rebreather 15.0 05/22/17 04:00 98 Non-Rebreather 15.0 05/22/17 01:30 94 20 96 Mask 4.0 05/22/17 00:35 37.2 86 22 126/72 (90) 94 Nasal Cannula 4.0 05/21/17 23:59 94 Nasal Cannula 4.0 05/21/17 20:00 95 Nasal Cannula 4.0 05/21/17 19:59 37.2 84 18 138/84 (102) 94 Oxymask 4.0 05/21/17 19:43 77 16 98 Mask 4.0 05/21/17 16:45 36.4 87 18 157/87 (110) 92 Oxymask 4.0 05/21/17 16:30 94 Mask 5.0 05/21/17 14:11 86 16 94 Mask 5.0 05/21/17 12:34 36.5 82 20 147/84 (105) 92 Oxymask 5.0 05/21/17 12:00 Oxymask 4.0 Lab Results: Results Past 24 Hours Test 05/22/17 02:14 05/22/17 06:43 Range/Units Bedside Glucose 116 70-90 mg/dl White Blood Count 9.69 4.8-10.8 K/uL Red Blood Count 4.36 4.2-5.4 M/uL Hemoglobin 13.3 12.0-16.0 g/dL Hematocrit 42.3 37-47 % Mean Corpuscular Volume 97.0 80-100 fL Mean Corpuscular Hemoglobin 30.5 25-34 pg Mean Corpuscular Hemoglobin Concent 31.4 32-36 g/dl RDW Standard Deviation 47.5 36.4-46.3 fL RDW Coefficient of Variation 13.4 11.5-14.5 % Platelet Count 275 130-400 K/uL Mean Platelet Volume 10.0 7.4-10.4 fL Sodium Level 144 136-145 mmol/L Potassium Level 4.1 3.5-5.1 mmol/L Chloride Level 107 98-107 mmol/L Carbon Dioxide Level 33 21-32 mmol/L Anion Gap 4.0 3-11 mmol/L Blood Urea Nitrogen 18 7-18 mg/dl Creatinine 0.62 0.60-1.20 mg/dl Est Creatinine Clear Calc Drug Dose 69.5 ml/min Estimated GFR () 110.4 Estimated GFR (Non- 95.3 BUN/Creatinine Ratio 29.7 10-20 Random Glucose 125 70-99 mg/dl Calcium Level 9.5 8.5-10.1 mg/dl Magnesium Level 2.2 1.8-2.4 mg/dl
[2017-05-22] MEDS: CEFTRIAXONE SOD INJ 1000 MG in DEXTROSE 5% 50ML IV SCH (11:43)
--- NOTE | 2017-05-22 15:06 | Neurology Progress Notes ---
Neurology Progress Note Date of Service May 22, 2017. Jeferson Mcdonald is a 62 year old female who was seen in the ED for complaints of shortness of breath. She states she recently fell and hit her head but was seen in the hospital for it. She notes gurgling in the back of her throat which is new. She has a history of frontotemporal Dementia and Parkinson's. Her room air is 88%. History limited secondary to dementia. She was found to be hypoxic and hypertensive and was believed to of aspirated. who is a doctor here confirms that patient is at baseline. On admission she had a UTI and yeast infection Currently she is lying in bed and is sleeping. After her last fall she was admitted to [facility] and was transferred from that facility. She is awake today with verbal command and gives a thumbs up when asked if she is doing ok. She denies, CP, SOB, abdominal pain, change in balance or strength. Objective Date Time Temp Pulse Resp B/P (MAP) Pulse Ox O2 Delivery O2 Flow Rate FiO2 05/22/17 14:18 79 20 95 Mask 3.0 05/22/17 13:30 94 Oxymask 3.5 05/22/17 12:00 Oxymask 4.0 05/22/17 10:28 35.9 72 32 148/81 (103) 97 Oxymask 5.0 05/22/17 08:00 Oxymask 5.0 05/22/17 07:34 37.2 110 32 151/76 (101) 95 Oxymask 5.0 05/22/17 07:13 108 20 98 Non-Rebreather 15.0 05/22/17 04:32 36.9 88 19 147/83 (104) 98 Non-Rebreather 15.0 05/22/17 04:00 98 Non-Rebreather 15.0 05/22/17 01:30 94 20 96 Mask 4.0 05/22/17 00:35 37.2 86 22 126/72 (90) 94 Nasal Cannula 4.0 05/21/17 23:59 94 Nasal Cannula 4.0 05/21/17 20:00 95 Nasal Cannula 4.0 05/21/17 19:59 37.2 84 18 138/84 (102) 94 Oxymask 4.0 05/21/17 19:43 77 16 98 Mask 4.0 05/21/17 16:45 36.4 87 18 157/87 (110) 92 Oxymask 4.0 05/21/17 16:30 94 Mask 5.0 Last 24 Hours Test 05/22/17 02:14 05/22/17 06:43 Bedside Glucose 116 mg/dl White Blood Count 9.69 K/uL Red Blood Count 4.36 M/uL Hemoglobin 13.3 g/dL Hematocrit 42.3 % Mean Corpuscular Volume 97.0 fL Mean Corpuscular Hemoglobin 30.5 pg Mean Corpuscular Hemoglobin Concent 31.4 g/dl RDW Standard Deviation 47.5 fL RDW Coefficient of Variation 13.4 % Platelet Count 275 K/uL Mean Platelet Volume 10.0 fL Sodium Level 144 mmol/L Potassium Level 4.1 mmol/L Chloride Level 107 mmol/L Carbon Dioxide Level 33 mmol/L Anion Gap 4.0 mmol/L Blood Urea Nitrogen 18 mg/dl Creatinine 0.62 mg/dl Est Creatinine Clear Calc Drug Dose 69.5 ml/min Estimated GFR () 110.4 Estimated GFR (Non- 95.3 BUN/Creatinine Ratio 29.7 Random Glucose 125 mg/dl Calcium Level 9.5 mg/dl Magnesium Level 2.2 mg/dl Imaging: CXR -Improved aeration within the left lower lobe with a few linear densities remaining suggesting subsegmental atelectasis. The right lung remains clear. Exam: Gen: alert with voice command lungs course breath sound CV RRR squeezes bilaterally with hands biceps triceps 4/5 generalize weakness generalize atrophy of muscles with wasting bilateral LE flex against gravity non tender with palpation, no edema Current Inpatient Medications Medications (Trade) Dose Ordered Sig/Paz Route Start Time Stop Time Status Last Admin Dose Admin Ioversol (Optiray 320) 100 ml UD PRN IV 05/19/17 23:00 05/23/17 22:59 Enoxaparin Sodium (Lovenox Inj) 30 mg Q24H SC 05/20/17 06:00 06/19/17 05:59 05/22/17 06:12 30 MG Acetaminophen (Tylenol Tab) 650 mg Q4H PRN PO 05/19/17 23:00 06/18/17 22:59 Lactobacillus Acidophilus (Floranex Tab) 4 tab TIDM PO 05/20/17 07:30 06/19/17 07:59 05/21/17 17:26 4 TAB Carbidopa/Levodopa (Sinemet 25/ 100MG Tab) 1 tab TID@0800,1400,2000 PO 05/20/17 08:00 06/19/17 07:59 05/22/17 13:20 1 TAB Citalopram Hydrobromide (celeXA TAB) 40 mg DAILY PO 05/20/17 09:00 06/19/17 08:59 05/22/17 08:00 40 MG Docusate Sodium (coLACE CAP) 100 mg BID PO 05/20/17 09:00 06/19/17 08:59 05/21/17 19:57 100 MG Entacapone (Comtan) 200 mg 5XDQ4H PO 05/20/17 07:00 06/19/17 06:59 05/22/17 14:33 200 MG Ipratropium [place] (Atrovent 0.02% 0.5MG/2.5ML Neb) 0.5 mg Q6R INH 05/20/17 03:00 06/19/17 02:59 05/22/17 14:18 0.5 MG Levalbuterol (Xopenex 1.25MG/ 0.5ML Neb) 1.25 mg Q6R INH 05/20/17 03:00 06/19/17 02:59 05/22/17 14:18 1.25 MG Carbidopa/Levodopa (Sinemet Cr 25/ 100MG Tab) 1 tab BID PO 05/20/17 09:00 06/19/17 08:59 05/22/17 08:01 1 TAB Atenolol (Tenormin Tab) 50 mg QAM PO 05/21/17 09:00 06/20/17 08:59 05/22/17 08:00 50 MG Ceftriaxone Sodium 1 gm/ Dextrose 50 ml @ 100 mls/hr Q24H IV 05/21/17 11:30 05/28/17 11:29 05/22/17 11:43 100 MLS/HR Clindamycin Phosphate 600 mg/ Dextrose 54 ml @ 100 mls/hr Q8H IV 05/21/17 18:00 05/27/17 17:59 05/22/17 11:01 100 MLS/HR Impression 62 year old fronto temporal dementia with Parkinson features progressive Plan 1. progressive dementia and parkinson's disease 2. continue sinemet 25/100mg ER BID and sinemet 25/100 mg TID if blood pressure tolerates may need to decrease if falls are occurring after standing 3. Comtan 200 mg 5 x day as previous 4. PT/OT/speech for discharge needs 5. needs better positioning to avoid collection of fluid in back of throat especially if cleared for eating 6. fall precautions 7. orthostatic blood pressures ordered have not been done 8. swallowing study done and pulmonary consult -likely aspiration pneumonia 9. will sign off for now will be available for further questions concerns as needed I have discussed above patient with Dr Dalila Spivey, neurology Pt seen and examined, more awake, alert, communicates with thumbs up/down, denies L knee pain. Pt lies in bed, head to left, no eye deviation with masked facies and dec blink freq, L hand rest tremor, moderate rigidity and kevyn. L knee crepitation with eval of rigidity. No swelling, deformity or tenderness. Imp Parkinson's variant, being tx for pneumonic process. When more mobile would check orhthostatics. Will sign off, AJIT Spivey MD
[2017-05-22] MEDS ORDERED: KCL IV ONE (16:45)
[2017-05-22] MEDS ORDERED: D5W IV ONE (16:45)
[2017-05-22] MEDS ORDERED: [UNRECOGNIZED DRUG - OTHER] IV ONE (16:45)
--- NOTE | 2017-05-22 17:01 | Pulmonology Progress Note ---
Pulmonary Progress Note Date of Service May 22, 2017. Attending Dr. Cummings Subjective Patient seen and examined this morning. She denies any chest pain, shortness of breath or cough. Nursing staff at bedside and states that she had episode of hypoxia and placed on nonrebreather mask overnight. At the time of my evaluation she was back down to 5 L/m on Oxymizer mask. Objective Vital signs reviewed. MAXIMUM TEMPERATURE 37.2, blood pressure 126/72 to 151/76 , pulse 72-110, respiratory rate 19-32, pulse oximetry 94-98% on 3-15 L/m. In the last 24 hours she is diuresed about 437 mL. General: Awake, answers in yes and no responses to questions. CVS: S1-S2 regular rate and rhythm Lungs: Rhonchorous bilaterally Abdomen: Soft, nontender, nondistended, bowel sounds positive Extremities: No edema, no cyanosis, no clubbing, upper extremities with cogwheel rigidity Labs reviewed. Blood cultures from 05/19/2017 are negative to date. Imaging reviewed. Medications reviewed. Currently on clindamycin 600 mg every 8 hours IV and ceftriaxone every 24 hours IV to cover for aspiration pneumonia. She is on ipratropium and levalbuterol every 6 hours. Assessment & Plan Acute hypoxemic respiratory failure secondary to HCAP/possible aspiration Progressive Parkinson's disease Bilateral pneumonia Patient continues to have episodes of hypoxia. She is protecting her airway at the current time. However, she still appears to be pooling saliva in her mouth with rhonchorous breath sounds. Despite this she denies any shortness of breath. Speech evaluation showed no obvious aspiration. Recommendations Continue with pulse oximetry to maintain SaO2 above 92%. She is quite tachypneic with shallow breathing. She may benefit from a trial of high flow nasal cannula versus BiPAP, intermittently. She is currently on clindamycin and ceftriaxone for empiric coverage of aspiration pneumonia and continue for 5 days. She also needs frequent re-positioning aggressive pulmonary toilet and suctioning of mild by nursing staff and respiratory therapists. Family has decided if patient is clinical status should worsen from a respiratory standpoint he would opt for a trial of intubation. Her overall prognosis is poor, as her disease process is rapidly progressing. Discussed with Dr. Angelo, hospitalist covering case. Continue with DVT ppx. Data Medications: Current Inpatient Medications Medications (Trade) Dose Ordered Sig/Paz Route Start Time Stop Time Status Last Admin Dose Admin Ioversol (Optiray 320) 100 ml UD PRN IV 05/19/17 23:00 05/23/17 22:59 Enoxaparin Sodium (Lovenox Inj) 30 mg Q24H SC 05/20/17 06:00 06/19/17 05:59 05/22/17 06:12 30 MG Acetaminophen (Tylenol Tab) 650 mg Q4H PRN PO 05/19/17 23:00 06/18/17 22:59 Lactobacillus Acidophilus (Floranex Tab) 4 tab TIDM PO 05/20/17 07:30 06/19/17 07:59 05/21/17 17:26 4 TAB Carbidopa/Levodopa (Sinemet 25/ 100MG Tab) 1 tab TID@0800,1400,2000 PO 05/20/17 08:00 06/19/17 07:59 05/22/17 13:20 1 TAB Citalopram Hydrobromide (celeXA TAB) 40 mg DAILY PO 05/20/17 09:00 06/19/17 08:59 05/22/17 08:00 40 MG Docusate Sodium (coLACE CAP) 100 mg BID PO 05/20/17 09:00 06/19/17 08:59 05/21/17 19:57 100 MG Entacapone (Comtan) 200 mg 5XDQ4H PO 05/20/17 07:00 06/19/17 06:59 05/22/17 14:33 200 MG Ipratropium [place] (Atrovent 0.02% 0.5MG/2.5ML Neb) 0.5 mg Q6R INH 05/20/17 03:00 06/19/17 02:59 05/22/17 14:18 0.5 MG Levalbuterol (Xopenex 1.25MG/ 0.5ML Neb) 1.25 mg Q6R INH 05/20/17 03:00 06/19/17 02:59 05/22/17 14:18 1.25 MG Carbidopa/Levodopa (Sinemet Cr 25/ 100MG Tab) 1 tab BID PO 05/20/17 09:00 06/19/17 08:59 05/22/17 08:01 1 TAB Atenolol (Tenormin Tab) 50 mg QAM PO 05/21/17 09:00 06/20/17 08:59 05/22/17 08:00 50 MG Ceftriaxone Sodium 1 gm/ Dextrose 50 ml @ 100 mls/hr Q24H IV 05/21/17 11:30 05/28/17 11:29 05/22/17 11:43 100 MLS/HR Clindamycin Phosphate 600 mg/ Dextrose 54 ml @ 100 mls/hr Q8H IV 05/21/17 18:00 05/27/17 17:59 05/22/17 11:01 100 MLS/HR I & O: 24-Hour Column 05/23/17 07:59 Output Total 150 ml Balance -150 ml Vital Signs: Date Time Temp Pulse Resp B/P (MAP) Pulse Ox O2 Delivery O2 Flow Rate FiO2 05/22/17 16:00 Oxymask 5.0 05/22/17 15:39 36.9 80 20 147/75 (99) 94 Nasal Cannula 3.0 05/22/17 14:18 79 20 95 Mask 3.0 05/22/17 13:30 94 Oxymask 3.5 05/22/17 12:00 Oxymask 4.0 05/22/17 10:28 35.9 72 32 148/81 (103) 97 Oxymask 5.0 05/22/17 08:00 Oxymask 5.0 05/22/17 07:34 37.2 110 32 151/76 (101) 95 Oxymask 5.0 05/22/17 07:13 108 20 98 Non-Rebreather 15.0 05/22/17 04:32 36.9 88 19 147/83 (104) 98 Non-Rebreather 15.0 05/22/17 04:00 98 Non-Rebreather 15.0 05/22/17 01:30 94 20 96 Mask 4.0 05/22/17 00:35 37.2 86 22 126/72 (90) 94 Nasal Cannula 4.0 05/21/17 23:59 94 Nasal Cannula 4.0 05/21/17 20:00 95 Nasal Cannula 4.0 05/21/17 19:59 37.2 84 18 138/84 (102) 94 Oxymask 4.0 05/21/17 19:43 77 16 98 Mask 4.0 05/21/17 16:45 36.4 87 18 157/87 (110) 92 Oxymask 4.0 Laboratory Results: Last 24 Hours Test 05/22/17 02:14 05/22/17 06:43 Bedside Glucose 116 mg/dl White Blood Count 9.69 K/uL Red Blood Count 4.36 M/uL Hemoglobin 13.3 g/dL Hematocrit 42.3 % Mean Corpuscular Volume 97.0 fL Mean Corpuscular Hemoglobin 30.5 pg Mean Corpuscular Hemoglobin Concent 31.4 g/dl RDW Standard Deviation 47.5 fL RDW Coefficient of Variation 13.4 % Platelet Count 275 K/uL Mean Platelet Volume 10.0 fL Sodium Level 144 mmol/L Potassium Level 4.1 mmol/L Chloride Level 107 mmol/L Carbon Dioxide Level 33 mmol/L Anion Gap 4.0 mmol/L Blood Urea Nitrogen 18 mg/dl Creatinine 0.62 mg/dl Est Creatinine Clear Calc Drug Dose 69.5 ml/min Estimated GFR () 110.4 Estimated GFR (Non- 95.3 BUN/Creatinine Ratio 29.7 Random Glucose 125 mg/dl Calcium Level 9.5 mg/dl Magnesium Level 2.2 mg/dl
[2017-05-23] VITALS (11 sets, daily range): BP systolic 113–167; BP diastolic 71–91; PULSE 67–119; TEMP 36.4–37; O2SAT 90–100
[2017-05-23] MEDS: IPRATROPIUM BROMIDE NEB SOLN 0.02% 2.5 ML VIAL INH SCH ×4 (01:53→19:41)
[2017-05-23] MEDS: LEVALBUTEROL 1.25MG/0.5ML NEB INH SCH ×4 (01:53→19:41)
[2017-05-23] MEDS: CLINDAMYCIN IV 600 MG in DEXTROSE 5% 50ML 50 ML IV SCH ×3 (02:23→18:32)
[2017-05-23] MEDS: ENOXAPARIN 30 MG/0.3 ML SYR SC SCH (06:42)
[2017-05-23 06:50] LABS: BUN/CREATININE RATIO 35.2 (10-20); CALCIUM 9.1 mg/dl (8.5-10.1); CREATININE 0.64 mg/dl (0.60-1.20)
[2017-05-23] MEDS: ENTACAPONE 200 MG TAB PO SCH ×5 (07:00→23:00)
[2017-05-23] MEDS: LACTOBACILLUS ACIDOPHILUS (FLORANEX) TAB PO SCH ×3 (07:30→16:17)
[2017-05-23] MEDS: CARBIDOPA/LEVODOPA 25/100MG TAB PO SCH ×3 (08:00→21:40)
--- NOTE | 2017-05-23 08:45 | Progress Note ---
Internal Med Progress Note Date of Service: May 23, 2017. Provider Documentation: SUBJECTIVE: Seen and examined at bedside Tachypneic and rhonchi on exam Needs aggressively pulmonary toilet No events overnight Family at bedside Poor historian Currently saturating 92% on 3L NC Denies any chest pain, SOB, cough, dizziness, abd pain Follows simple commands OBJECTIVE: Vital Signs-as noted below Physical Exam: General Appearance:Thin, Frail, no apparent distress Head: normocephalic, Atraumatic Eyes: normal inspection, EOMI, PERRL Neck: supple, Trachea midline Respiratory/Chest:Tachypnea, B/L Rhonchi Cardiovascular: S1, S2, No murmur Abdomen/GI:Soft, Non tender, Bowel sounds present Extremities/Musculoskelatal:normal inspection, no edema Neurologic/Psych:grossly no focal neurological deficits Skin: normal color, warm Lab data as noted below. ASSESSMENT & PLAN: Acute hypoxemic respiratory failure secondary to HCAP Possible aspiration Presented with SOB, hypoxia, Leukocytosis CTA: no central pulmonary embolus, Minimal dependent bilateral consolidation with more nodular consolidation in the superior segment of the right lower lobe. Combined with extensive debris in the airway, this is concerning for aspiration. Leukocytosis normalized On Clindamycin>>> added Ceftriaxone Day # 3/5 Video swallow eval: No aspiration Aspiration precautions Speech recommendations: 1. Mechanical soft diet with thin liquids - NO straws 2. Meds crushed and in carrier (pudding/applesauce) 3. Pt. MUST feed self 4. Full aspiration precautions 5. Supervision with all intake and cue for safe swallowing strategies (small bites, small sips, slow rate) Blood/Urine Culture: No growth Negative MRSA screen May need BiPAP but high risk for aspiration Oxygen support Appreciate Pulmonology Input Incentive Spirometry, flutter valve May need Bronchoscopy if respiratory status deteriorates Goals of Care Addressed with on 05/22/17: No Trach, Peg tube, DNR Ok with temporary Intubation Prognosis poor continue current management Will give gentle IV fluids secondary to poor oral intake and as per request of HTN/Sinus Tachycardia: Continue Atenolol Monitor Hypokalemia: Resolved monitor Mg levels: normal H/O frontotemporal dementia with parkinsonian features Continue home meds Appreciate Neurology Input Could not get Orthostatics Mood disorder: Continue home meds RUL Pulmonary Nodule: Follow up as outpatient DVT Px: SQ Lovenox Code Status Full code. Disposition: To be determined Poor prognosis PROCEDURES: Video Swallow: 1. No aspiration identified. 2. Please see the speech pathologist report for detailed findings and recommendations. CTA: 1. Allowing for motion artifact, no central pulmonary embolus. 2. Minimal dependent bilateral consolidation with more nodular consolidation in the superior segment of the right lower lobe. Combined with extensive debris in the airway, this is concerning for aspiration. 3. 3 to 4 mm solid nodule in the right upper lobe, poorly assessed due to motion artifact. Follow-up per [employer] 2017 recommendations below Vital Signs: Date Time Temp Pulse Resp B/P (MAP) Pulse Ox O2 Delivery O2 Flow Rate FiO2 05/23/17 15:00 36.6 115 18 113/72 (86) 93 Oxymask 3.0 05/23/17 14:29 104 16 97 Mask 4.0 05/23/17 12:00 Oxymask 4.0 05/23/17 11:23 36.6 104 20 125/78 (94) 93 Oxymask 4.0 05/23/17 08:45 Oxymask 4.0 05/23/17 07:59 36.6 95 20 167/91 (116) 90 3.0 05/23/17 07:11 90 22 91 Nasal Cannula 3.0 05/23/17 04:00 Nasal Cannula 3.0 Non-Rebreather 05/23/17 03:50 36.9 91 26 144/80 (101) 94 Nasal Cannula 3.0 05/23/17 01:53 87 20 95 Nasal Cannula 3.0 05/23/17 01:39 79 20 95 Nasal Cannula 3.0 05/23/17 00:01 Nasal Cannula 3.0 Non-Rebreather 05/22/17 23:27 37.5 81 21 160/74 (102) 94 Nasal Cannula 3.0 05/22/17 20:00 Nasal Cannula 3.0 Non-Rebreather 05/22/17 19:55 36.8 83 18 128/70 (89) 96 Nasal Cannula 2.5 05/22/17 19:22 82 20 97 Mask 3.0 Lab Results: Results Past 24 Hours Test 05/23/17 05:34 Range/Units Sodium Level 145 136-145 mmol/L Potassium Level 4.0 3.5-5.1 mmol/L Chloride Level 108 98-107 mmol/L Carbon Dioxide Level 34 21-32 mmol/L Anion Gap 3.0 3-11 mmol/L Blood Urea Nitrogen 22 7-18 mg/dl Creatinine 0.64 0.60-1.20 mg/dl Est Creatinine Clear Calc Drug Dose 68.3 ml/min Estimated GFR () 109.3 Estimated GFR (Non- 94.3 BUN/Creatinine Ratio 35.2 10-20 Random Glucose 153 70-99 mg/dl Calcium Level 9.1 8.5-10.1 mg/dl
[2017-05-23] MEDS: CITALOPRAM 40 MG TAB PO SCH (09:00)
[2017-05-23] MEDS: DOCUSATE SODIUM 100 MG CAP PO SCH ×2 (09:00→21:00)
[2017-05-23] MEDS: CARBIDOPA/LEVODOPA 25/100MG EXT REL TAB PO SCH ×2 (09:00→21:00)
[2017-05-23] MEDS: CEFTRIAXONE SOD INJ 1000 MG in DEXTROSE 5% 50ML IV SCH (13:02)
[2017-05-23] MEDS ORDERED: SODIUM CHLORIDE 0.9% 500ML 500 ML IV ONE (16:30)
[2017-05-23] MEDS ORDERED: NURSING VERBAL MED ORDER ONE ×2 (16:30→17:45)
--- NOTE | 2017-05-23 17:59 | Pulmonology Progress Note ---
Pulmonary Progress Note Date of Service May 23, 2017. Attending Dr. Cummings Subjective Patient seen and examined at bedside. She is awake, nonverbal but responding to commands with the thumbs up. She denies any chest pain, shortness of breath or cough. Objective Vital signs reviewed. MAXIMUM TEMPERATURE 36.9, blood pressure 113-72-167/91, pulse 79-115 respiratory rate 16-26, pulse oximetry 90-97% on 3- 4 L/m. Cumulative balance is 1.5 L positive since admission. Urine output on average her 0.5 mL/kg per hour. General: Awake, responds appropriately to questions CVS: S1-S2 regular rate and rhythm Lungs: Rhonchorous bilaterally Abdomen: Soft, nontender, nondistended, bowel sounds positive Extremities: No edema, no cyanosis, no clubbing, upper extremities with cogwheel rigidity Labs reviewed. Carbon dioxide 34. BUN 22, creatinine 0.64 Blood cultures from 05/19/2017 are negative to date. Imaging reviewed. Medications reviewed. Currently on clindamycin 600 mg every 8 hours IV and ceftriaxone every 24 hours IV to cover for aspiration pneumonia. She is on ipratropium and levalbuterol every 6 hours. Assessment & Plan Acute hypoxemic respiratory failure secondary to HCAP/possible aspiration Progressive Parkinson's disease Bilateral pneumonia Patient's respiratory status appears to be improving somewhat from previous days. She is saturating adequately on 3-4 L/m nasal cannula. Breath sounds sound less rhonchorous today. She is not in any respiratory distress and less tachypnea today. Recommendations Continue with pulse oximetry to maintain SaO2 above 92%. Chemistry CO2 is 34. She may benefit from a trial of high flow nasal cannula versus BiPAP, intermittently, but is very high risk for aspiration. Continue with clindamycin and ceftriaxone for empiric coverage of aspiration pneumonia on the of 5 days. She should complete left stenosis on Friday, 2016. She also needs frequent re-positioning aggressive pulmonary toilet and suctioning of mild by nursing staff and respiratory therapists. Family has decided if patient is clinical status should worsen from a respiratory standpoint he would opt for a trial of intubation. Recommend repeat chest x-ray in the morning. Her overall prognosis is poor, as her disease process is rapidly progressing. Discussed with Dr. Angelo, hospitalist covering case. Continue with DVT ppx. Data Medications: Current Inpatient Medications Medications (Trade) Dose Ordered Sig/Paz Route Start Time Stop Time Status Last Admin Dose Admin Ioversol (Optiray 320) 100 ml UD PRN IV 05/19/17 23:00 05/23/17 22:59 Enoxaparin Sodium (Lovenox Inj) 30 mg Q24H SC 05/20/17 06:00 06/19/17 05:59 05/23/17 06:42 30 MG Acetaminophen (Tylenol Tab) 650 mg Q4H PRN PO 05/19/17 23:00 06/18/17 22:59 Lactobacillus Acidophilus (Floranex Tab) 4 tab TIDM PO 05/20/17 07:30 06/19/17 07:59 05/21/17 17:26 4 TAB Carbidopa/Levodopa (Sinemet 25/ 100MG Tab) 1 tab TID@0800,1400,2000 PO 05/20/17 08:00 06/19/17 07:59 05/22/17 20:36 1 TAB Citalopram Hydrobromide (celeXA TAB) 40 mg DAILY PO 05/20/17 09:00 06/19/17 08:59 05/22/17 08:00 40 MG Docusate Sodium (coLACE CAP) 100 mg BID PO 05/20/17 09:00 06/19/17 08:59 05/22/17 20:36 100 MG Entacapone (Comtan) 200 mg 5XDQ4H PO 05/20/17 07:00 06/19/17 06:59 05/22/17 20:36 200 MG Ipratropium [place] (Atrovent 0.02% 0.5MG/2.5ML Neb) 0.5 mg Q6R INH 05/20/17 03:00 06/19/17 02:59 05/23/17 14:27 0.5 MG Levalbuterol (Xopenex 1.25MG/ 0.5ML Neb) 1.25 mg Q6R INH 05/20/17 03:00 06/19/17 02:59 05/23/17 14:27 1.25 MG Carbidopa/Levodopa (Sinemet Cr 25/ 100MG Tab) 1 tab BID PO 05/20/17 09:00 06/19/17 08:59 05/22/17 20:36 1 TAB Atenolol (Tenormin Tab) 50 mg QAM PO 05/21/17 09:00 06/20/17 08:59 05/22/17 08:00 50 MG Ceftriaxone Sodium 1 gm/ Dextrose 50 ml @ 100 mls/hr Q24H IV 05/21/17 11:30 05/28/17 11:29 05/23/17 13:02 100 MLS/HR Clindamycin Phosphate 600 mg/ Dextrose 54 ml @ 100 mls/hr Q8H IV 05/21/17 18:00 05/27/17 17:59 05/23/17 09:47 100 MLS/HR Dextrose/Sodium Chloride 1,000 ml @ 125 mls/hr Q8H IV 05/23/17 19:00 06/22/17 18:59 Sodium Chloride 500 ml @ 250 mls/hr Q2H ONCE IV 05/23/17 16:30 05/23/17 18:29 05/23/17 16:29 250 MLS/HR Miscellaneous Information (Nursing Verbal Med Order) 1 ea ONE ONCE N/A 05/23/17 17:45 05/23/17 17:46 UNV I & O: 24-Hour Column 05/24/17 08:00 Intake Total 455 ml Output Total 250 ml Balance 205 ml Vital Signs: Date Time Temp Pulse Resp B/P (MAP) Pulse Ox O2 Delivery O2 Flow Rate FiO2 05/23/17 15:00 36.6 115 18 113/72 (86) 93 Oxymask 3.0 05/23/17 14:29 104 16 97 Mask 4.0 05/23/17 12:00 Oxymask 4.0 05/23/17 11:23 36.6 104 20 125/78 (94) 93 Oxymask 4.0 05/23/17 08:45 Oxymask 4.0 05/23/17 07:59 36.6 95 20 167/91 (116) 90 3.0 05/23/17 07:11 90 22 91 Nasal Cannula 3.0 05/23/17 04:00 Nasal Cannula 3.0 Non-Rebreather 05/23/17 03:50 36.9 91 26 144/80 (101) 94 Nasal Cannula 3.0 05/23/17 01:53 87 20 95 Nasal Cannula 3.0 05/23/17 01:39 79 20 95 Nasal Cannula 3.0 05/23/17 00:01 Nasal Cannula 3.0 Non-Rebreather 05/22/17 23:27 37.5 81 21 160/74 (102) 94 Nasal Cannula 3.0 05/22/17 20:00 Nasal Cannula 3.0 Non-Rebreather 05/22/17 19:55 36.8 83 18 128/70 (89) 96 Nasal Cannula 2.5 05/22/17 19:22 82 20 97 Mask 3.0 Laboratory Results: Last 24 Hours Test 05/23/17 05:34 Sodium Level 145 mmol/L Potassium Level 4.0 mmol/L Chloride Level 108 mmol/L Carbon Dioxide Level 34 mmol/L Anion Gap 3.0 mmol/L Blood Urea Nitrogen 22 mg/dl Creatinine 0.64 mg/dl Est Creatinine Clear Calc Drug Dose 68.3 ml/min Estimated GFR () 109.3 Estimated GFR (Non- 94.3 BUN/Creatinine Ratio 35.2 Random Glucose 153 mg/dl Calcium Level 9.1 mg/dl
[2017-05-23] MEDS: D5W AND 1/2NSS 1,000 ML IV SCH (18:34)
[2017-05-23] MEDS: BOOST VANILLA PO SCH ×2 (21:40)
[2017-05-24] VITALS (10 sets, daily range): BP systolic 104–171; BP diastolic 67–91; PULSE 95–125; TEMP 36.9–37.3; O2SAT 91–97
[2017-05-24] MEDS: IPRATROPIUM BROMIDE NEB SOLN 0.02% 2.5 ML VIAL INH SCH ×4 (01:44→18:58)
[2017-05-24] MEDS: LEVALBUTEROL 1.25MG/0.5ML NEB INH SCH ×4 (01:47→18:58)
[2017-05-24] MEDS: CLINDAMYCIN IV 600 MG in DEXTROSE 5% 50ML 50 ML IV SCH ×3 (02:13→18:22)
[2017-05-24] MEDS: D5W AND 1/2NSS 1,000 ML IV SCH ×2 (04:18→20:32)
[2017-05-24] MEDS: ENOXAPARIN 30 MG/0.3 ML SYR SC SCH (06:25)
[2017-05-24 06:44] LABS: MEAN CELL VOLUME 98.3 fL (80-100); MEAN CORPUSCULAR HEMOGLOBIN 30.5 pg (25-34); MEAN PLATELET VOLUME 10.1 fL (7.4-10.4); PLATELET COUNT 271 K/uL (130-400); RED BLOOD COUNT 4.17 M/uL (4.2-5.4)
[2017-05-24] MEDS: BOOST VANILLA PO SCH ×8 (07:00→20:26)
[2017-05-24] MEDS: ENTACAPONE 200 MG TAB PO SCH ×5 (07:00→23:00)
[2017-05-24] MEDS: LACTOBACILLUS ACIDOPHILUS (FLORANEX) TAB PO SCH ×3 (07:06→15:51)
[2017-05-24] MEDS: CARBIDOPA/LEVODOPA 25/100MG EXT REL TAB PO SCH ×2 (07:07→20:30)
[2017-05-24] MEDS: CARBIDOPA/LEVODOPA 25/100MG TAB PO SCH ×3 (07:07→20:00)
[2017-05-24] MEDS: DOCUSATE SODIUM 100 MG CAP PO SCH ×2 (07:07→20:30)
[2017-05-24] MEDS: CITALOPRAM 40 MG TAB PO SCH (07:07)
[2017-05-24 07:16] LABS: BUN/CREATININE RATIO 32.4 (10-20); CALCIUM 8.8 mg/dl (8.5-10.1); CREATININE 0.53 mg/dl (0.60-1.20)
--- NOTE | 2017-05-24 07:28 | DIAGNOSTIC IMAGING REPORT ---
CHEST ONE VIEW PORTABLE CLINICAL HISTORY: 62 years-old Female presenting with pneumonia. TECHNIQUE: Portable upright AP view of the chest was obtained. COMPARISON: 05/22/2017. FINDINGS: Cardiomediastinal silhouette normal. Lungs mildly hyperinflated, unchanged. No residual left basilar opacity. No focal infiltrate. No large effusion or pneumothorax. Old left rib fractures again noted. Upper abdomen normal. IMPRESSION: 1. No residual left basilar atelectasis. Slight hyperinflation. Electronically signed by: Triston Bishop M.D. 05/24/2017 7:27 AM Dictated Date/Time: 05/24/2017 7:24 AM
--- NOTE | 2017-05-24 08:27 | Progress Note ---
Internal Med Progress Note Date of Service: May 24, 2017. Provider Documentation: SUBJECTIVE: Seen and examined at bedside Had an episode of vomiting this morning Repeat CXR:No acute change Less Tachypneic and rhonchi on exam Needs aggressively pulmonary toilet Poor historian Expresses by nodding head that she feels tired Denies Pain, SOB Currently saturating 95% Follows simple commands OBJECTIVE: Vital Signs-as noted below Physical Exam: General Appearance:Thin, Frail, no apparent distress Head: normocephalic, Atraumatic Eyes: normal inspection, EOMI, PERRL Neck: supple, Trachea midline Respiratory/Chest:Tachypnea, Normal breath sounds, CTA Cardiovascular: S1, S2, No murmur Abdomen/GI:Soft, Non tender, Bowel sounds present Extremities/Musculoskelatal:normal inspection, no edema Neurologic/Psych:grossly no focal neurological deficits Skin: normal color, warm Lab data as noted below. ASSESSMENT & PLAN: Acute hypoxemic respiratory failure secondary to HCAP Possible aspiration Presented with SOB, hypoxia, Leukocytosis CTA: no central pulmonary embolus, Minimal dependent bilateral consolidation with more nodular consolidation in the superior segment of the right lower lobe. Combined with extensive debris in the airway, this is concerning for aspiration. Leukocytosis normalized High risk for aspiration On Clindamycin>>> added Ceftriaxone Day # 4/5 Video swallow eval: No aspiration Aspiration precautions Speech recommendations: 1. Mechanical soft diet with thin liquids - NO straws 2. Meds crushed and in carrier (pudding/applesauce) 3. Pt. MUST feed self 4. Full aspiration precautions 5. Supervision with all intake and cue for safe swallowing strategies (small bites, small sips, slow rate) Blood/Urine Culture: No growth Negative MRSA screen May need BiPAP but high risk for aspiration Oxygen support Appreciate Pulmonology Input Incentive Spirometry, flutter valve May need Bronchoscopy if respiratory status deteriorates Goals of Care Addressed with on 05/22/17: No Trach, Peg tube, DNR Ok with temporary Intubation Prognosis poor but stable continue current management gentle IV fluids, Monitor I/Os HTN/Sinus Tachycardia: Continue Atenolol Monitor Hypokalemia: Resolved monitor Mg levels: normal H/O frontotemporal dementia with parkinsonian features Continue home meds Appreciate Neurology Input Could not get Orthostatics Mood disorder: Continue home meds RUL Pulmonary Nodule: Follow up as outpatient DVT Px: SQ Lovenox Code Status Full code. Disposition: To be determined Poor prognosis, but stable PROCEDURES: Video Swallow: 1. No aspiration identified. 2. Please see the speech pathologist report for detailed findings and recommendations. CTA: 1. Allowing for motion artifact, no central pulmonary embolus. 2. Minimal dependent bilateral consolidation with more nodular consolidation in the superior segment of the right lower lobe. Combined with extensive debris in the airway, this is concerning for aspiration. 3. 3 to 4 mm solid nodule in the right upper lobe, poorly assessed due to motion artifact. Follow-up per [employer] 2017 recommendations below Vital Signs: Date Time Temp Pulse Resp B/P (MAP) Pulse Ox O2 Delivery O2 Flow Rate FiO2 05/24/17 08:11 37.0 109 24 171/81 (111) 95 05/24/17 06:53 104 20 96 Mask 4.0 05/24/17 04:25 Oxymask 4.0 05/24/17 03:25 36.9 106 22 131/77 (95) 97 Oxymask 05/24/17 01:44 95 20 91 Mask 3.0 05/23/17 23:59 Oxymask 4.5 05/23/17 23:59 37.0 105 18 143/75 (97) 97 Oxymask 4.0 05/23/17 20:00 Oxymask 4.5 05/23/17 19:41 105 12 97 Mask 4.0 05/23/17 19:04 36.4 119 20 121/71 (88) 97 Oxymask 3.0 05/23/17 16:00 Oxymask 4.5 05/23/17 15:00 36.6 115 18 113/72 (86) 93 Oxymask 3.0 05/23/17 14:29 104 16 97 Mask 4.0 05/23/17 12:00 Oxymask 4.0 05/23/17 11:23 36.6 104 20 125/78 (94) 93 Oxymask 4.0 05/23/17 08:45 Oxymask 4.0 Lab Results: Results Past 24 Hours Test 05/24/17 06:20 Range/Units White Blood Count 8.50 4.8-10.8 K/uL Red Blood Count 4.17 4.2-5.4 M/uL Hemoglobin 12.7 12.0-16.0 g/dL Hematocrit 41.0 37-47 % Mean Corpuscular Volume 98.3 80-100 fL Mean Corpuscular Hemoglobin 30.5 25-34 pg Mean Corpuscular Hemoglobin Concent 31.0 32-36 g/dl RDW Standard Deviation 49.0 36.4-46.3 fL RDW Coefficient of Variation 13.8 11.5-14.5 % Platelet Count 271 130-400 K/uL Mean Platelet Volume 10.1 7.4-10.4 fL Sodium Level 144 136-145 mmol/L Potassium Level 4.0 3.5-5.1 mmol/L Chloride Level 107 98-107 mmol/L Carbon Dioxide Level 34 21-32 mmol/L Anion Gap 3.0 3-11 mmol/L Blood Urea Nitrogen 17 7-18 mg/dl Creatinine 0.53 0.60-1.20 mg/dl Est Creatinine Clear Calc Drug Dose 82.4 ml/min Estimated GFR () 116.3 Estimated GFR (Non- 100.3 BUN/Creatinine Ratio 32.4 10-20 Random Glucose 143 70-99 mg/dl Calcium Level 8.8 8.5-10.1 mg/dl
[2017-05-24] MEDS: CEFTRIAXONE SOD INJ 1000 MG in DEXTROSE 5% 50ML IV SCH (10:36)
--- NOTE | 2017-05-24 13:34 | Pulmonology Progress Note ---
Pulmonary Progress Note Date of Service May 24, 2017. Attending Dr. Cummings Subjective Patient seen and examined today. Remains nonverbal today following simple commands. Appears to be more rigid today. Continues to have decreased oral intake. Nursing noted vomitus today and increased oral secretions. Objective Vital signs reviewed. MAXIMUM TEMPERATURE 37.3, blood pressure 131/77-171/81, pulse 95-113, respiratory rate 20-30, pulse oximetry 91-97% on 3- 4 L/m. General: Awake, responds appropriately to questions CVS: S1-S2 regular rate and rhythm Lungs: Rhonchorous bilaterally Abdomen: Soft, nontender, nondistended, bowel sounds positive Extremities: No edema, no cyanosis, no clubbing, upper extremities with cogwheel rigidity, increased rigidity today Labs reviewed. Imaging reviewed. Medications reviewed. Blood cultures from 05/19/2017 are negative to date. CHEST ONE VIEW PORTABLE 05/24/2017 CLINICAL HISTORY: 62 years-old Female presenting with pneumonia. TECHNIQUE: Portable upright AP view of the chest was obtained. COMPARISON: 05/22/2017. FINDINGS: Cardiomediastinal silhouette normal. Lungs mildly hyperinflated, unchanged. No residual left basilar opacity. No focal infiltrate. No large effusion or pneumothorax. Old left rib fractures again noted. Upper abdomen normal. IMPRESSION: 1. No residual left basilar atelectasis. Slight hyperinflation. Assessment & Plan Acute hypoxemic respiratory failure secondary to HCAP/possible aspiration Progressive Parkinson's disease Bilateral pneumonia Patient's respiratory status appears to be improving somewhat from previous days. She is saturating adequately on 3-4 L/m nasal cannula. CXR shows interval improvement of LLL opacification Recommendations Continue with pulse oximetry to maintain SaO2 above 92%. She may benefit from a trial of high flow nasal cannula versus BiPAP, intermittently, but is very high risk for aspiration. She should complete last dose of antibiotics on 05/25/2017. She also needs frequent re-positioning aggressive pulmonary toilet and suctioning of mild by nursing staff and respiratory therapists. Her overall prognosis is poor, as her disease process is rapidly progressing. Discussed with Dr. Angelo, hospitalist covering case. I will sign off case at this time. Please contact me if you have any other questions or concerns. Data Medications: Current Inpatient Medications Medications (Trade) Dose Ordered Sig/Paz Route Start Time Stop Time Status Last Admin Dose Admin Enoxaparin Sodium (Lovenox Inj) 30 mg Q24H SC 05/20/17 06:00 06/19/17 05:59 05/24/17 06:25 30 MG Acetaminophen (Tylenol Tab) 650 mg Q4H PRN PO 05/19/17 23:00 06/18/17 22:59 Lactobacillus Acidophilus (Floranex Tab) 4 tab TIDM PO 05/20/17 07:30 06/19/17 07:59 05/21/17 17:26 4 TAB Carbidopa/Levodopa (Sinemet 25/ 100MG Tab) 1 tab TID@0800,1400,2000 PO 05/20/17 08:00 06/19/17 07:59 05/22/17 20:36 1 TAB Citalopram Hydrobromide (celeXA TAB) 40 mg DAILY PO 05/20/17 09:00 06/19/17 08:59 05/22/17 08:00 40 MG Docusate Sodium (coLACE CAP) 100 mg BID PO 05/20/17 09:00 06/19/17 08:59 05/22/17 20:36 100 MG Entacapone (Comtan) 200 mg 5XDQ4H PO 05/20/17 07:00 06/19/17 06:59 05/22/17 20:36 200 MG Ipratropium [place] (Atrovent 0.02% 0.5MG/2.5ML Neb) 0.5 mg Q6R INH 05/20/17 03:00 06/19/17 02:59 05/24/17 06:53 0.5 MG Levalbuterol (Xopenex 1.25MG/ 0.5ML Neb) 1.25 mg Q6R INH 05/20/17 03:00 06/19/17 02:59 05/24/17 06:53 1.25 MG Carbidopa/Levodopa (Sinemet Cr 25/ 100MG Tab) 1 tab BID PO 05/20/17 09:00 06/19/17 08:59 05/22/17 20:36 1 TAB Atenolol (Tenormin Tab) 50 mg QAM PO 05/21/17 09:00 06/20/17 08:59 05/22/17 08:00 50 MG Ceftriaxone Sodium 1 gm/ Dextrose 50 ml @ 100 mls/hr Q24H IV 05/21/17 11:30 05/28/17 11:29 05/24/17 10:36 100 MLS/HR Clindamycin Phosphate 600 mg/ Dextrose 54 ml @ 100 mls/hr Q8H IV 05/21/17 18:00 05/27/17 17:59 05/24/17 10:06 100 MLS/HR Dextrose/Sodium Chloride 1,000 ml @ 80 mls/hr [id number] IV 05/23/17 19:00 06/22/17 18:59 05/24/17 04:18 80 MLS/HR Enteral Nutritional Formula (Boost) 1 can ACHS PO 05/23/17 21:00 06/22/17 20:59 Vital Signs: Date Time Temp Pulse Resp B/P (MAP) Pulse Ox O2 Delivery O2 Flow Rate FiO2 05/24/17 12:00 Nasal Cannula 4.0 05/24/17 10:29 37.3 113 30 155/82 (106) 93 Nasal Cannula 4.0 05/24/17 08:11 37.0 109 24 171/81 (111) 95 05/24/17 08:00 Nasal Cannula 4.0 05/24/17 06:53 104 20 96 Mask 4.0 05/24/17 04:25 Oxymask 4.0 05/24/17 03:25 36.9 106 22 131/77 (95) 97 Oxymask 05/24/17 01:44 95 20 91 Mask 3.0 05/23/17 23:59 Oxymask 4.5 05/23/17 23:59 37.0 105 18 143/75 (97) 97 Oxymask 4.0 05/23/17 20:00 Oxymask 4.5 05/23/17 19:41 105 12 97 Mask 4.0 05/23/17 19:04 36.4 119 20 121/71 (88) 97 Oxymask 3.0 05/23/17 16:00 Oxymask 4.5 05/23/17 15:00 36.6 115 18 113/72 (86) 93 Oxymask 3.0 05/23/17 14:29 104 16 97 Mask 4.0 Laboratory Results: Last 24 Hours Test 05/24/17 06:20 White Blood Count 8.50 K/uL Red Blood Count 4.17 M/uL Hemoglobin 12.7 g/dL Hematocrit 41.0 % Mean Corpuscular Volume 98.3 fL Mean Corpuscular Hemoglobin 30.5 pg Mean Corpuscular Hemoglobin Concent 31.0 g/dl RDW Standard Deviation 49.0 fL RDW Coefficient of Variation 13.8 % Platelet Count 271 K/uL Mean Platelet Volume 10.1 fL Sodium Level 144 mmol/L Potassium Level 4.0 mmol/L Chloride Level 107 mmol/L Carbon Dioxide Level 34 mmol/L Anion Gap 3.0 mmol/L Blood Urea Nitrogen 17 mg/dl Creatinine 0.53 mg/dl Est Creatinine Clear Calc Drug Dose 82.4 ml/min Estimated GFR () 116.3 Estimated GFR (Non- 100.3 BUN/Creatinine Ratio 32.4 Random Glucose 143 mg/dl Calcium Level 8.8 mg/dl
[2017-05-24] MEDS ORDERED: METOPROLOL TARTRATE 1 MG/ML VIAL IV PRN (15:45)
[2017-05-24] MEDS ORDERED: METOPROLOL TARTRATE 1 MG/ML VIAL ONE (15:47)
[2017-05-25 01:53] VITALS: PULSE 80; O2SAT 93
[2017-05-25] MEDS: LEVALBUTEROL 1.25MG/0.5ML NEB INH SCH ×2 (01:53→06:51)
[2017-05-25] MEDS: IPRATROPIUM BROMIDE NEB SOLN 0.02% 2.5 ML VIAL INH SCH ×2 (01:53→06:51)
[2017-05-25] MEDS: CLINDAMYCIN IV 600 MG in DEXTROSE 5% 50ML 50 ML IV SCH (02:53)
[2017-05-25 03:22] VITALS: BP 131/79; PULSE 82; TEMP 36.5; O2SAT 93
[2017-05-25] MEDS: ENOXAPARIN 30 MG/0.3 ML SYR SC SCH (06:18)
[2017-05-25 06:51] VITALS: PULSE 92; O2SAT 91
[2017-05-25 06:51] LABS: BUN/CREATININE RATIO 33.5 (10-20); CALCIUM 9.3 mg/dl (8.5-10.1); CREATININE 0.48 mg/dl (0.60-1.20); POTASSIUM 3.9 mmol/L (3.5-5.1)
[2017-05-25] MEDS: ENTACAPONE 200 MG TAB PO SCH (07:00)
[2017-05-25] MEDS: BOOST VANILLA PO SCH ×2 (07:00)
[2017-05-25] MEDS: LACTOBACILLUS ACIDOPHILUS (FLORANEX) TAB PO SCH (07:13)
[2017-05-25] MEDS: DOCUSATE SODIUM 100 MG CAP PO SCH (07:13)
[2017-05-25] MEDS: CITALOPRAM 40 MG TAB PO SCH (07:13)
[2017-05-25] MEDS: CARBIDOPA/LEVODOPA 25/100MG EXT REL TAB PO SCH (07:13)
[2017-05-25] MEDS: CARBIDOPA/LEVODOPA 25/100MG TAB PO SCH (07:13)
[2017-05-25 08:16] VITALS: BP 170/74; PULSE 97; TEMP 36.8; O2SAT 92
[2017-05-25 08:48] VITALS: BP 105/66; PULSE 58; TEMP 36.7; O2SAT 57
[2017-05-25] MEDS ORDERED: MoRPHine SULFATE 2 MG/ML CARP ONE (08:52)
--- NOTE | 2017-05-25 08:56 | Progress Note ---
Internal Med Progress Note Date of Service: May 25, 2017. Provider Documentation: SUBJECTIVE: Seen and examined at bedside Severely diaphoretic, has agonal breathing Critically ill No response to sternal rub Family updated Coarse breath sounds on exam Oxygen sats: 45%, placed on oxy mask Does not follow commands OBJECTIVE: Vital Signs-as noted below Physical Exam: General Appearance:Thin, Frail, agonal breathing Head: normocephalic, Atraumatic Eyes: normal inspection, EOMI, PERRL Neck: supple, Trachea midline Respiratory/Chest:Tachypnea, agonal breathing, coarse, breath sounds Cardiovascular: S1, S2, No murmur Abdomen/GI:Soft, Non tender, Bowel sounds present Extremities/Musculoskelatal:normal inspection, no edema Neurologic/Psych:Doesnt follow commands Skin: normal color, warm Lab data as noted below. ASSESSMENT & PLAN: Acute hypoxemic respiratory failure secondary to HCAP Possible aspiration Presented with SOB, hypoxia, Leukocytosis CTA: no central pulmonary embolus, Minimal dependent bilateral consolidation with more nodular consolidation in the superior segment of the right lower lobe. Combined with extensive debris in the airway, this is concerning for aspiration. Leukocytosis normalized High risk for aspiration On Clindamycin>>> added Ceftriaxone Day # 5 Video swallow eval: No aspiration Aspiration precautions Speech recommendations: 1. Mechanical soft diet with thin liquids - NO straws 2. Meds crushed and in carrier (pudding/applesauce) 3. Pt. MUST feed self 4. Full aspiration precautions 5. Supervision with all intake and cue for safe swallowing strategies (small bites, small sips, slow rate) Blood/Urine Culture: No growth Negative MRSA screen May need BiPAP but high risk for aspiration Oxygen support Appreciate Pulmonology Input Incentive Spirometry, flutter valve May need Bronchoscopy if respiratory status deteriorates Goals of Care Addressed with on 05/22/17: No Trach, Peg tube, DNR Ok with temporary Intubation if necessary to procedures continue current management gentle IV fluids, Monitor I/Os Critically ill, very poor prognosis Family updated HTN/Sinus Tachycardia: Continue Atenolol Monitor Hypokalemia: Resolved monitor Mg levels: normal H/O frontotemporal dementia with parkinsonian features Continue home meds Appreciate Neurology Input Could not get Orthostatics Mood disorder: Continue home meds RUL Pulmonary Nodule: Follow up as outpatient DVT Px: SQ Lovenox Code Status DNR Disposition: To be determined Very Poor prognosis and critical PROCEDURES: Video Swallow: 1. No aspiration identified. 2. Please see the speech pathologist report for detailed findings and recommendations. CTA: 1. Allowing for motion artifact, no central pulmonary embolus. 2. Minimal dependent bilateral consolidation with more nodular consolidation in the superior segment of the right lower lobe. Combined with extensive debris in the airway, this is concerning for aspiration. 3. 3 to 4 mm solid nodule in the right upper lobe, poorly assessed due to motion artifact. Follow-up per [employer] 2017 recommendations below Vital Signs: Date Time Temp Pulse Resp B/P (MAP) Pulse Ox O2 Delivery O2 Flow Rate FiO2 05/25/17 08:48 36.7 58 32 105/66 (79) 57 Oxymask 15.0 05/25/17 08:16 36.8 97 24 170/74 (106) 92 Nasal Cannula 05/25/17 06:51 92 24 91 Nasal Cannula 3.0 05/25/17 04:00 Nasal Cannula 4.0 05/25/17 03:22 36.5 82 20 131/79 (96) 93 Nasal Cannula 3.0 05/25/17 01:53 80 22 93 Nasal Cannula 3.0 05/24/17 23:59 Nasal Cannula 4.0 05/24/17 23:47 37.1 104 22 154/77 (102) 93 Nasal Cannula 3.0 05/24/17 20:00 Nasal Cannula 4.0 05/24/17 19:05 36.9 106 18 104/67 (79) 96 Oxymask 3.0 05/24/17 18:59 103 20 96 Nasal Cannula 3.0 05/24/17 16:00 Nasal Cannula 4.0 05/24/17 15:50 122 170/95 05/24/17 15:31 36.9 125 26 165/91 (115) 95 Nasal Cannula 4.0 05/24/17 14:06 109 20 96 Nasal Cannula 4.0 05/24/17 12:00 Nasal Cannula 4.0 05/24/17 10:29 37.3 113 30 155/82 (106) 93 Nasal Cannula 4.0 Lab Results: Results Past 24 Hours Test 05/25/17 05:47 Range/Units Sodium Level 145 136-145 mmol/L Potassium Level 3.9 3.5-5.1 mmol/L Chloride Level 104 98-107 mmol/L Carbon Dioxide Level 40 21-32 mmol/L Anion Gap 1.0 3-11 mmol/L Blood Urea Nitrogen 16 7-18 mg/dl Creatinine 0.48 0.60-1.20 mg/dl Est Creatinine Clear Calc Drug Dose 97.2 ml/min Estimated GFR () 120.1 Estimated GFR (Non- 103.7 BUN/Creatinine Ratio 33.5 10-20 Random Glucose 142 70-99 mg/dl Calcium Level 9.3 8.5-10.1 mg/dl
[2017-05-25] MEDS ORDERED: MoRPHine SULFATE 2 MG/ML CARP IV PRN (09:00)
--- NOTE | 2017-05-25 09:00 | Discharge Summary ---
Discharge Summary Date of Service May 25, 2017. Discharge Summary Admission Date: May 19, 2017 at 22:21 Discharge Disposition: Principal Diagnosis: Acute hypoxemic respiratory failure, frontotemporal dementia with parkinsonian features Procedures: Video swallow: 1. No aspiration identified. 2. Please see the speech pathologist report for detailed findings and recommendations. CTA: 1. Allowing for motion artifact, no central pulmonary embolus. 2. Minimal dependent bilateral consolidation with more nodular consolidation in the superior segment of the right lower lobe. Combined with extensive debris in the airway, this is concerning for aspiration. 3. 3 to 4 mm solid nodule in the right upper lobe, poorly assessed due to motion artifact. Follow-up per [employer] 2017 recommendations below. Consultations: Pulmonology, Neurology Admission Information HPI (per Admitting provider): CHIEF COMPLAINT: Hypoxemia, tachycardia as per records. HISTORY OF PRESENT ILLNESS: History obtained from the patient's and records. Limited history from the patient secondary to her limited verbal output secondary to Parkinson's disease. Patient is a [facility] resident. Medical history significant for frontotemporal dementia with parkinsonian features, mood disorder, arthritis, left renal angioma status post surgery, ambulatory dysfunction, hx. aspiration risk. Recent confinement February 2017 for concussion and UTI. Patient had a swallow evaluation at that time. Speech therapy recommended regular diet, thin liquids, aspiration precautions. Patient discharged to [facility]. Has been back to the ER on 2 subsequent occasions for falls. As per records, yesterday patient noted to be in some respiratory distress, tachycardic, tachypneic, SpO2 sats 89 on room air. concerned about aspiration. Patient brought to the Emergency Room. Given cefepime and Levaquin for pneumonia. Physical Exam (per Admitting): PHYSICAL EXAMINATION: VITAL SIGNS: Blood pressure was noted to be 177/92, later 170/94, pulse rate 100, RR 28, sats 89 on room air, later 90 on 4 L. GENERAL: Noted to be hyposthenic. No respiratory distress. Somewhat lethargic, limited verbal output although acknowledges some questions. SKIN: Normal color. Warm. HEENT: [place] palpebral conjunctivae. No ptosis. Dry buccal mucosa. Nasal cannula in place. NECK: No JVD. Supple. No tenderness. CHEST: Decreased effort. No tenderness. CV: Tachycardic. Palpable LE pulses. ABDOMEN: Soft. NT EXTREMITIES: No edema. No tenderness. No gross deformities. NEUROLOGIC: Bradykinesia. Intention tremors. Limited verbal output. Gait and stance not assessed. Hospital Course Acute hypoxemic respiratory failure secondary to HCAP Possible aspiration Presented with SOB, hypoxia, Leukocytosis CTA: no central pulmonary embolus, Minimal dependent bilateral consolidation with more nodular consolidation in the superior segment of the right lower lobe. Combined with extensive debris in the airway, this is concerning for aspiration. Leukocytosis normalized High risk for aspiration On Clindamycin>>> added Ceftriaxone Day # 5 Video swallow eval: No aspiration Aspiration precautions Speech recommendations: 1. Mechanical soft diet with thin liquids - NO straws 2. Meds crushed and in carrier (pudding/applesauce) 3. Pt. MUST feed self 4. Full aspiration precautions 5. Supervision with all intake and cue for safe swallowing strategies (small bites, small sips, slow rate) Blood/Urine Culture: No growth Negative MRSA screen May need BiPAP but high risk for aspiration Oxygen support Appreciate Pulmonology Input Incentive Spirometry, flutter valve May need Bronchoscopy if respiratory status deteriorates Goals of Care Addressed with on 05/22/17: No Trach, Peg tube, DNR Ok with temporary Intubation if necessary to procedures continue current management gentle IV fluids, Monitor I/Os Critically ill, very poor prognosis Family updated Patient at 9:03am HTN/Sinus Tachycardia: Continue Atenolol Monitor Hypokalemia: Resolved monitor Mg levels: normal H/O frontotemporal dementia with parkinsonian features Continue home meds Appreciate Neurology Input Could not get [employer]ost[employer] Mood disorder: Continue home meds RUL Pulmonary Nodule: Follow up as outpatient DVT Px: SQ Lovenox Code Status DNR Disposition: To be determined Very Poor prognosis and critical PROCEDURES: Video Swallow: 1. No aspiration identified. 2. Please see the speech pathologist report for detailed findings and recommendations. CTA: 1. Allowing for motion artifact, no central pulmonary embolus. 2. Minimal dependent bilateral consolidation with more nodular consolidation in the superior segment of the right lower lobe. Combined with extensive debris in the airway, this is concerning for aspiration. 3. 3 to 4 mm solid nodule in the right upper lobe, poorly assessed due to motion artifact. Follow-up per [employer] 2017 recommendations below Total time spent on discharge = This includes examination of the patient, discharge planning, medication reconciliation, and communication with other providers. Discharge Instructions Patient
--- NOTE | 2017-05-25 09:08 | Progress Note ---
Progress Note Date of Service May 25, 2017. Progress Note Patient at 9:03am. Will update family.
== END 2017-05-25 10:23 | disposition expired | DRG 177 ==
LOC: EDBD 17:50 → C.EDB 17:51 → C.2T 22:21 → ENRESERV 22:28 → C.2T 05-22 16:43
PROVIDERS: ADMIT Internal Medicine; ATTEND Internal Medicine
DX: J69.0 Pneumonitis due to inhalation of food and vomit (principal); J96.01 Acute respiratory failure with hypoxia; E46 Unspecified protein-calorie malnutrition; Z68.1 Body mass index [BMI] 19.9 or less, adult; J18.9 Pneumonia, unspecified organism; Y95 Nosocomial condition; G20 Parkinson's disease; G31.09 Other frontotemporal neurocognitive disorder; F02.80 Dementia in other diseases classified elsewhere, unspecified severity, without behavioral disturbance, psychotic disturbance, mood disturbance, and anxiety; F39 Unspecified mood [affective] disorder; I10 Essential (primary) hypertension; R82.90 Unspecified abnormal findings in urine; R91.1 Solitary pulmonary nodule; E87.6 Hypokalemia; Z66 Do not resuscitate; Z91.81 History of falling; Z87.440 Personal history of urinary (tract) infections; Z87.448 Personal history of other diseases of urinary system; Z90.49 Acquired absence of other specified parts of digestive tract; Z79.899 Other long term (current) drug therapy; Z88.0 Allergy status to penicillin; Z88.2 Allergy status to sulfonamides; Z81.8 Family history of other mental and behavioral disorders